=== PATIENT | male | born 1940 | race Caucasian/White ===

== ENCOUNTER 2016-11-12 15:18 | Inpatient (IN) | payer MEDICARE, OTHER ==
[~2016-11-12] VITALS: Ht 177.8 cm; Wt 70.3 kg
[2016-11-12 17:02] VITALS: BP 151/74
[2016-11-12] MEDS ORDERED: CATAPRES0.1 MG GT (17:31)
[2016-11-12] MEDS ORDERED: ARTIFICIAL TEA1 EAC2 OP (17:31)
[2016-11-12] MEDS ORDERED: ASPIR 8181 MG GT (17:31)
[2016-11-12] MEDS ORDERED: ACETAMINOP160 MG/51 ORAL (17:31)
[2016-11-12] MEDS ORDERED: DILANTIN-1125 MG/5 M PO (17:43)
[2016-11-12] MEDS ORDERED: NORCO 5-325 TA1 EACH ORAL (17:56)
[2016-11-12] MEDS ORDERED: ERYTHROMYCIN 2%30 GM TP (17:56)
[2016-11-12] MEDS ORDERED: KEFLEX500 MG ORAL (17:56)
[2016-11-12] MEDS ORDERED: NORCO 5-325 TA1 EACH GT (17:56)
[2016-11-12] MEDS ORDERED: ZOFRAN ODT4 MG (17:56)
[2016-11-12] MEDS ORDERED: DUONEB 0.5-3(2.53 ML HHN (17:56)
[2016-11-12] MEDS ORDERED: POLYETHYLENE GL17 GM ORAL (17:56)
[2016-11-12] MEDS ORDERED: MILK OF MA2400 MG/10 GT (17:56)
[2016-11-12] MEDS ORDERED: SOTALOL80 M1 GT (17:56)
[2016-11-12] MEDS ORDERED: SYNTHROID25 MCG GT (17:56)
[2016-11-12] MEDS ORDERED: FAMOTIDINE10 MG GT (17:56)
[2016-11-12] MEDS ORDERED: MULTI-DELYN237 ML GT (17:56)
[2016-11-12] MEDS ORDERED: DULCOLAX10 MG RC (17:56)
[2016-11-12] MEDS ORDERED: SIMVASTATIN10 MG GT (17:56)
[2016-11-12] MEDS ORDERED: ENEMA133 M1 RC (17:56)
[2016-11-12] MEDS ORDERED: TBO-Filgrastim 300 mcg/0.5ml SQ SCH (18:15)
[2016-11-12] MEDS ORDERED: Acetaminophen 650mg/20.3ml NG PRN (19:15)
[2016-11-12 20:00] VITALS: BP 148/81
[2016-11-12] MEDS ORDERED: Vancomycin 1.5 GM in D5W 325 ML IVPB ONE (20:00)
[2016-11-12] MEDS ORDERED: Miralax 17gm pkt ORAL PRN (21:00)
[2016-11-12] MEDS ORDERED: Milk of Magnesia 30ml Ud GT PRN (21:00)
[2016-11-12] MEDS ORDERED: Acetaminophen 650mg/20.3ml ORAL PRN (21:00)
[2016-11-12] MEDS ORDERED: Fleet's Enema 133ml RECTAL PRN (21:00)
[2016-11-12] MEDS ORDERED: Norco 5mg/325mg tab ORAL PRN (21:00)
[2016-11-12] MEDS ORDERED: Norco 5mg/325mg tab GT PRN (21:00)
[2016-11-12] MEDS ORDERED: Artificial Tears 1.4% Op Soln BOTH EYES PRN (21:45)
[2016-11-12] MEDS ORDERED: Cephalexin 250mg/5ml Susp 100mL Bottle NG SCH (22:30)
[2016-11-12] MEDS: DuoNeb 0.5-3(2.5)mg/3ml neb HHN PRN (22:34)
[2016-11-12] MEDS: Piperacillin/Tazobactam 3.375 GM in D5W 110 ML IVPB SCH (22:34)
[2016-11-13] VITALS (9 sets, daily range): BP systolic 95–150; BP diastolic 63–80
[2016-11-13] MEDS: Piperacillin/Tazobactam 3.375 GM in D5W 110 ML IVPB SCH ×3 (05:58→23:04)
[2016-11-13 07:33] LABS: BASOPHILS % (AUTO) 1.2 % (0.0-2.0); EOSINOPHILS % (AUTO) 3.9 % (0.0-3.0); LYMPHOCYTES % (AUTO) 4.9 % (20.0-45.0); MEAN CORPUSCULAR HEMOGLOBIN 29.3 PG (27.0-31.0); MEAN CORPUSCULAR HGB CONC 33.1 G/DL (32.0-36.0); MEAN CORPUSCULAR VOLUME 88 FL (80-99); MONOCYTES % (AUTO) 7.5 % (1.0-10.0); NEUTROPHILS % (AUTO) 82.5 % (45.0-75.0); PLATELET COUNT 264 K/UL (150-450); RED BLOOD COUNT 3.84 M/UL (4.70-6.10); RED CELL DISTRIBUTION WIDTH 12.9 % (11.6-14.8); WHITE BLOOD COUNT 11.3 K/UL (4.8-10.8)
[2016-11-13] MEDS: Multivitamin 5ml Liquid GT SCH (08:51)
[2016-11-13] MEDS: Aspirin Baby 81mg GT SCH (08:51)
[2016-11-13] MEDS: Phenytoin Susp 100mg/4ml GT SCH ×2 (08:52→17:27)
[2016-11-13] MEDS ORDERED: Levothyroxine 25mcg tab GT SCH (09:00)
[2016-11-13] MEDS: Sotalol 80mg tab ORAL SCH (09:20)
[2016-11-13] MEDS ORDERED: Sterile Water Irrig 1000ml IRRIG ONE (12:06)
[2016-11-13] MEDS ORDERED: Tubing IV Secondary IV ONE (12:06)
[2016-11-13] MEDS ORDERED: Vancomycin 1gm/D5W 275ml IVPB ONE ×2 (20:30)
--- NOTE | 2016-11-13 22:09 | Consultation ---
DATE OF CONSULTATION: 11/13/2016 REASON FOR CONSULTATION: Respiratory failure and pneumonia. REASON FOR ADMISSION: Fever and neutropenia. HISTORY OF PRESENT ILLNESS: The patient is a 76-year-old unfortunate male who was noted to have fevers. The patient has had history of facial cancer so the patient has significant scalp deformity. The patient noted to have significant neutropenia at the intermediate, was brought in for neutropenic fever, and comfortable was seen for discharge. 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 MEDICATIONS: Reviewed. ALLERGIES: Reviewed. SOCIAL HISTORY: Nonsmoker and nondrinker at the present. The patient is very debilitated. REVIEW OF SYSTEMS: Otherwise difficult to obtain. The patient otherwise appears stable, otherwise at the nursing facility. PHYSICAL EXAMINATION: GENERAL:: The patient is a chronically ill appearing male. VITAL SIGNS: Temperature 96.7, heart rate 100, blood pressure 158/67, O2 saturation 97% on 40% FiO2, respiratory rate 22. HEENT: Fairly negative. The patient overall has significant facial/scalp deformities with chronic erythematous changes. Extraocular movements are grossly intact. NECK: Supple. Carotids 2+. Tracheostomy in midline. LUNGS: Coarse breath sounds. Moderate air entry. CARDIAC: S1 and S2. Slightly tachycardiac without murmurs, rubs, or gallops. ABDOMEN: Soft, nontender, and nondistended. EXTREMITIES: No cyanosis or clubbing. No edema. NEUROLOGIC: Grossly nonfocal. LABORATORY DATA: Labs are reviewed and notable for white cell count of 11.3, hematocrit 32.9, platelets 254,000. IMPRESSION: 1. Respiratory failure, tracheostomy. 2. History of squamous cell cancer. 3. Significant facial and skull deformity. 4. History of seizure. 5. History of hyperlipidemia. 6. History of dysrhythmias. IMPRESSION: 1. Continue intermediate medications. 2. Empiric antibiotics. 3. The patient initially placed on isolation; however, the patient now is no longer neutropenic. We will follow clinically and recommend GI and ID evaluation. Followup x-ray and exam and stabilize. We will proceed with discharge planning once nontoxic and stable for discharge. Sarabjit Hunt M.D. DR: Artemio JOB#: [id number] CC:
--- NOTE | 2016-11-13 22:59 | Consultation ---
DATE OF CONSULTATION: 11/13/2016 INFECTIOUS DISEASES CONSULTATION: CONSULTING PHYSICIAN: Kae Mensah M.D. REFERRING PHYSICIAN: Sarabjit Hunt M.D. REASON FOR CONSULTATION: Fever. HISTORY OF PRESENTING ILLNESS: This is a 76-year-old gentleman with history of squamous cell carcinoma of the head and neck as well as respiratory failure, status post tracheostomy and fevers, and Infectious Diseases consultation has been obtained for antibiotics. PAST MEDICAL AND SURGICAL HISTORY: 1. History of squamous cell carcinoma of the head and neck. 2. Respiratory failure, status post tracheostomy. 3. Dysphagia, status post G-tube placement. 4. History of Banuelos's palsy. MEDICATIONS: As an inpatient, the patient is on aspirin, Synthroid, multivitamin, Dilantin, sotalol, ranitidine, Zosyn, Lipitor, Artificial Tears, Tylenol, Dulcolax, clonidine, [place], albuterol, milk of magnesia, sodium phosphate, Zofran, MiraLax, Tylenol, IV vancomycin. ALLERGIES: No known drug allergies. SOCIAL HISTORY: Unknown. FAMILY HISTORY: Unknown. REVIEW OF SYSTEMS: Unable to obtain currently. PHYSICAL EXAMINATION: VITAL SIGNS: Temperature is 96.4 degrees, T-max of 101.7 degrees, pulse of 100, respiratory rate 22, blood pressure 150/67, and O2 saturation of 97%. HEENT: Pupils are equally reactive to light and accommodation. Mouth appears clean without thrush. Facial masses are noted. NECK: Supple. Tracheostomy site appears clean. CARDIOVASCULAR: Regular rate and rhythm. No murmurs. LUNGS: Clear to auscultation bilaterally. No crackles. No wheezes. ABDOMEN: Soft and nontender. No organomegaly. G-tube site appears clean. G-tube site has surrounding erythema. EXTREMITIES: No cyanosis, no clubbing, and no edema. LABORATORY DATA: White count is 11.3, hemoglobin 11.2, hematocrit 33.9, MCV 88, and platelet count 264,000 with neutrophils of 82%. Wound cultures from the abdomen is negative so far. ASSESSMENT: 1. This is a 76-year-old gentleman with history of squamous cell carcinoma of the head and neck, who comes in with fevers. We would like to rule out urinary tract infection as a possibility. 2. We would also like to rule out sepsis as a possibility. 3. He has G-tube site cellulitis. 4. Respiratory failure, status post tracheostomy. PLAN: 1. Continue vancomycin and Zosyn. 2. We will follow up on wound cultures, blood cultures, and urine cultures and adjust antibiotics accordingly. I would like to thank, Dr. Hunt for this consultation. Kae Mensah M.D. DR: Craig JOB#: [id number] CC: Sarabjit Hunt M.D.; Fax#: [phone]
[2016-11-14] VITALS: BP 133/67
[2016-11-14 04:00] VITALS: BP 125/84
[2016-11-14] MEDS: Piperacillin/Tazobactam 3.375 GM in D5W 110 ML IVPB SCH ×3 (04:55→21:33)
--- NOTE | 2016-11-14 05:18 | History and Physical Report ---
DATE OF ADMISSION: 11/12/2016 CHIEF COMPLAINT: Shortness of breath and pneumonia. HISTORY OF PRESENT ILLNESS: The patient is a 76-year-old male. He has a history of head and neck cancer, chronic obstructive pulmonary disease, and dysphagia, who was admitted from an outside hospital. He complaints of cough, congestion, and shortness of breath. The patient is a poor historian. He is unable to provide any history. He is currently noted to be congested, short of breath, and more confused. He had an elevated white count of 11,000. He was noted to be congested. PAST MEDICAL HISTORY: As above. PAST SURGERY HISTORY: The patient has a prior history of tracheostomy via G-tube. CURRENT MEDICATIONS: Reconciled and reviewed. ALLERGIES: None. FAMILY HISTORY: Unknown. SOCIAL HISTORY: There is no known history of tobacco, ethanol, or drugs. REVIEW OF SYSTEMS: Unobtainable as the patient is confused. PHYSICAL EXAMINATION: VITAL SIGNS: Temperature 98 degrees, blood pressure 144/63, pulse 96, and respirations 18. GENERAL: The patient is in no apparent distress. HEART: Regular rate and rhythm. LUNGS: Clear. Trach site is clean. Bilateral rhonchi and rales. ABDOMEN: Soft, nontender, and nondistended. EXTREMITIES: Without clubbing, cyanosis, or edema. LABORATORY AND DIAGNOSTIC DATA: White count 11, hemoglobin 11, and hematocrit 33. X-ray results are currently pending. ASSESSMENT: 1. This is an elderly male with complaints of shortness of breath, cough, congestion secondary to possible pneumonia. 2. Respiratory failure. 3. History of chronic obstructive pulmonary disease on tracheostomy. 4. History of head and neck cancer. PLAN: Broad-spectrum IV antibiotics. Aggressive respiratory care and pulmonary. Continue current blood pressure regimen, thyroid replacement therapy, antiplatelet therapy, DVT and stress ulcer prophylaxis. Mathew Gr M.D. DR: ANTONIETA JOB#: [id number] CC:
[2016-11-14 07:21] LABS: ALANINE AMINOTRANSFERASE 38 U/L (3-41); ALBUMIN/GLOBULIN RATIO 0.5 (1.0-2.7); ANION GAP 10 (5-15); ASPARTATE AMINO TRANSFERASE 34 U/L (5-40); CALCIUM 9.2 mg/dL (8.6-10.2); CARBON DIOXIDE 31 mEQ/L (20-30); CHLORIDE 90 mEQ/L (98-107); CREATININE 0.6 mg/dL (0.7-1.2); HEMOLYSIS 0; POTASSIUM 4.2 mEQ/L (3.4-4.9); SODIUM 131 mEQ/L (135-145); TOTAL PROTEIN 7.4 g/dL (6.6-8.7)
[2016-11-14 08:00] VITALS: BP 137/84
[2016-11-14] MEDS: Multivitamin 5ml Liquid GT SCH (09:15)
[2016-11-14] MEDS: Aspirin Baby 81mg GT SCH (09:15)
[2016-11-14] MEDS: Sotalol 80mg tab ORAL SCH (09:15)
[2016-11-14] MEDS: Phenytoin Susp 100mg/4ml GT SCH ×2 (09:15→17:57)
--- NOTE | 2016-11-14 11:17 | Diagnostic Imaging Report ---
Indication: COPD, dyspnea Technique: One view of the chest Comparison: none Findings: Patient's chin obscures the right lung apex. There is a band of atelectasis at the right lung base. Patchy consolidation in the left hilar region and areas of left basilar atelectasis are also noted. There is slight blunting of left costophrenic angle, small amount of pleural fluid not excludable. Left chest biventricular AICD is noted. Left axillary surgical clips are noted. The heart size is normal. Impression: Possible small left-sided pleural effusion Left perihilar patchy infiltrate Bibasilar atelectasis Other findings as noted
--- NOTE | 2016-11-14 11:43 | Infectious Diseases Prog Note ---
Assessment/Plan Assessment/Plan antibiotics : vancomycin iv, zosyn A 1. pneumonia 2. GT site cellulitis with staph aureus 3. 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 fever improving P 1. continue vancomycin iv, zosyn 2. will follow up cultures Subjective ROS Limited/Unobtainable: Yes Allergies: Coded Allergies: No Known Allergies (Unverified , 11/12/16) Objective Vital Signs Last 24 Hour Vital Signs Date Time Temp Pulse Resp B/P Pulse Ox O2 Delivery O2 Flow Rate FiO2 11/14/16 09:15 84 137/84 11/14/16 08:00 97.2 84 18 137/84 91 Trach Collar 4.0 11/14/16 07:27 98 Trach Collar 40 11/14/16 07:27 Trach Collar 40 11/14/16 04:00 97.9 83 18 125/84 97 Trach Collar 4.0 11/14/16 00:30 98 Trach Collar 40 11/14/16 00:30 Trach Collar 40 11/14/16 00:00 98.1 79 18 133/67 97 Trach Collar 4.0 11/13/16 20:00 97.7 78 18 130/67 98 Trach Collar 4.0 11/13/16 19:23 96 Trach Collar 40 11/13/16 19:23 Trach Collar 40 11/13/16 16:36 98.1 76 18 144/63 95 Trach Collar 4.0 11/13/16 16:35 98.1 76 18 144/63 95 Room Air 11/13/16 12:00 97.2 77 18 127/77 93 Trach Collar 4.0 Height (Feet): 5 Height (Inches): 10.00 Weight (Pounds): 155 HEENT: status post trach, other - facial masses Respiratory/Chest: lungs clear Cardiovascular: normal rate, regular rhythm, no gallop/murmur Abdomen: soft, non tender, other - GT Extremities: no edema Microbiology Date/Time Source Procedure Growth Status 11/12/16 19:10 Blood Blood Culture - Preliminary NO GROWTH AFTER 24 HOURS Resulted 11/12/16 19:00 Blood Blood Culture - Preliminary NO GROWTH AFTER 24 HOURS Resulted 11/13/16 13:40 Sputum Expectorated Gram Stain - Final Resulted 11/13/16 13:40 Sputum Expectorated Sputum Culture Pending Resulted 11/12/16 20:00 Nasal Nares MRSA Culture - Final Staphylococcus Aureus - Mrsa Complete 11/13/16 09:30 Urine,Clean Catch Urine Culture - Preliminary NO GROWTH Resulted 11/12/16 20:00 Abdomen Gram Stain - Final Resulted 11/12/16 20:00 Wound Culture - Preliminary Staphylococcus Aureus Resulted 11/12/16 20:00 Rectum VRE Culture - Final NO VANCOMYCIN RESISTANT ENTEROCOCCUS ... Complete Laboratory Tests Test 11/14/16 05:35 Sodium Level 131 mEQ/L (135-145) L Potassium Level 4.2 mEQ/L (3.4-4.9) Chloride Level 90 mEQ/L (98-107) L Carbon Dioxide Level 31 mEQ/L (20-30) H Anion Gap 10 (5-15) Blood Urea Nitrogen 12 mg/dL (7-23) Creatinine 0.6 mg/dL (0.7-1.2) L Estimat Glomerular Filtration Rate mL/min (>60) Glucose Level 176 mg/dL (74-106) H Calcium Level 9.2 mg/dL (8.6-10.2) Total Bilirubin 0.4 mg/dL (0.0-1.2) Aspartate Amino Transf (AST/SGOT) 34 U/L (5-40) Alanine Aminotransferase (ALT/SGPT) 38 U/L (3-41) Alkaline Phosphatase 210 U/L (40-129) H Total Protein 7.4 g/dL (6.6-8.7) Albumin 2.7 g/dL (3.5-5.2) L Globulin 4.7 g/dL Albumin/Globulin Ratio 0.5 (1.0-2.7) L Thyroid Stimulating Hormone (TSH) 2.200 uIU/mL (0.300-4.500) Phenytoin (Dilantin) Level 9.6 ug/mL (10-20) L RANDI TREVIZO Nov 14, 2016 11:43
[2016-11-14 11:58] VITALS: BP 124/69
--- NOTE | 2016-11-14 12:00 | Pulmonology Progress Note ---
Assessment/Plan Assessment/Plan IMPRESSION: 1. Respiratory failure, tracheostomy. 2. History of squamous cell cancer. 3. Significant facial and skull deformity. 4. History of seizure. 5. History of hyperlipidemia. 6. History of dysrhythmias. PLAN dc planning respiratory care oxygen monitor for change monitor for aspiration dc to SNF possibly next 1-2 days pending evaluation impression, plan, and exam edited and reviewed in detail care discussed with RN Subjective ROS Limited/Unobtainable: Yes Allergies: Coded Allergies: No Known Allergies (Unverified , 11/12/16) Subjective no distress care noted Objective Last 24 Hour Vital Signs Date Time Temp Pulse Resp B/P Pulse Ox O2 Delivery O2 Flow Rate FiO2 11/14/16 09:15 84 137/84 11/14/16 08:00 97.2 84 18 137/84 91 Trach Collar 4.0 11/14/16 07:27 98 Trach Collar 40 11/14/16 07:27 Trach Collar 40 11/14/16 04:00 97.9 83 18 125/84 97 Trach Collar 4.0 11/14/16 00:30 98 Trach Collar 40 11/14/16 00:30 Trach Collar 40 11/14/16 00:00 98.1 79 18 133/67 97 Trach Collar 4.0 11/13/16 20:00 97.7 78 18 130/67 98 Trach Collar 4.0 11/13/16 19:23 96 Trach Collar 40 11/13/16 19:23 Trach Collar 40 11/13/16 16:36 98.1 76 18 144/63 95 Trach Collar 4.0 11/13/16 16:35 98.1 76 18 144/63 95 Room Air 11/13/16 12:00 97.2 77 18 127/77 93 Trach Collar 4.0 Intake and Output 11/13/16 11/14/16 19:00 07:00 Intake Total 1882.5 ml 1629.0 ml Output Total 1100 ml 1000 ml Balance 782.5 ml 629.0 ml Intake Free Water 300 ml 300 ml IV Total 582.5 ml 849.0 ml Tube Feeding 1000 ml 250 ml Other 230 ml Output Urine Total 1100 ml 1000 ml # Voids 2 Objective GENERAL:: The patient is a chronically ill appearing male. HEENT: Fairly negative. The patient overall has significant facial/scalp deformities with chronic erythematous changes. Extraocular movements are grossly intact. NECK: Supple. Carotids 2+. Tracheostomy in midline. LUNGS: Coarse breath sounds. Moderate air entry. without change CARDIAC: S1 and S2. RRR without murmurs, rubs, or gallops. ABDOMEN: Soft, nontender, and nondistended. EXTREMITIES: No cyanosis or clubbing. No edema. NEUROLOGIC: Grossly nonfocal. Microbiology Date/Time Source Procedure Growth Status 11/12/16 19:10 Blood Blood Culture - Preliminary NO GROWTH AFTER 24 HOURS Resulted 11/12/16 19:00 Blood Blood Culture - Preliminary NO GROWTH AFTER 24 HOURS Resulted 11/13/16 13:40 Sputum Expectorated Gram Stain - Final Resulted 11/13/16 13:40 Sputum Expectorated Sputum Culture Pending Resulted 11/12/16 20:00 Nasal Nares MRSA Culture - Final Staphylococcus Aureus - Mrsa Complete 11/13/16 09:30 Urine,Clean Catch Urine Culture - Preliminary NO GROWTH Resulted 11/12/16 20:00 Abdomen Gram Stain - Final Resulted 11/12/16 20:00 Wound Culture - Preliminary Staphylococcus Aureus Resulted 11/12/16 20:00 Rectum VRE Culture - Final NO VANCOMYCIN RESISTANT ENTEROCOCCUS ... Complete Laboratory Tests 11/14/16 05:35: Sodium Level 131L, Potassium Level 4.2, Chloride Level 90L, Carbon Dioxide Level 31H, Anion Gap 10, Blood Urea Nitrogen 12, Creatinine 0.6L, Estimat Glomerular Filtration Rate , Glucose Level 176H, Calcium Level 9.2, Total Bilirubin 0.4, Aspartate Amino Transf (AST/SGOT) 34, Alanine Aminotransferase ( ALT/SGPT) 38, Alkaline Phosphatase 210H, Total Protein 7.4, Albumin 2.7L, Globulin 4.7, Albumin/Globulin Ratio 0.5L, Thyroid Stimulating Hormone (TSH) 2.200, Phenytoin (Dilantin) Level 9.6L Current Medications Medications (Trade) Dose Ordered Sig/[place] Route PRN Reason Start Time Stop Time Status Last Admin Dose Admin Acetaminophen (Tylenol) 650 mg Q4HR PRN NG Mild Pain/Temp > 100.5 11/12/16 19:15 12/12/16 19:14 11/12/16 19:37 Acetaminophen (Tylenol) 650 mg Q4HR PRN ORAL Fever/Headache/Mild Pain 11/12/16 21:00 12/12/16 20:59 Acetaminophen/ Hydrocodone Bitart ([place] 5/325) 1 tab Q6H PRN GT Moderate Pain (Pain Scale 4-6) 11/12/16 21:00 11/19/16 20:59 Acetaminophen/ Hydrocodone Bitart ([place] 5/325) 2 tab Q6H PRN ORAL Severe Pain (Pain Scale 7-10) 11/12/16 21:00 11/19/16 20:59 Albuterol/ Ipratropium (DuoNeb 0.5-3(2.5)mg/3ml) 3 ml EVERY 4 HOURS PRN HHN Shortness of Breath 11/12/16 21:00 11/17/16 20:59 11/12/16 22:34 Artificial Tears ([place]-Tears) 1 drop Q4H PRN BOTH EYES DRY EYES 11/12/16 21:45 12/12/16 21:44 Aspirin (ASA) 81 mg DAILY GT 11/13/16 09:00 12/13/16 08:59 11/14/16 09:15 Atorvastatin Calcium (Lipitor) 5 mg BEDTIME ORAL 11/12/16 22:00 12/12/16 21:59 11/13/16 20:59 Bisacodyl (Dulcolax) 10 mg DAILY PRN RECTAL If MOM is ineffective 11/12/16 21:00 12/12/16 20:59 Clonidine HCl (Catapres) 0.1 mg EVERY 6 HOURS PRN GT SBP >160 11/12/16 21:00 12/12/16 20:59 Levothyroxine Sodium (Synthroid) 50 mcg DAILY GT 11/14/16 09:00 12/14/16 08:59 11/14/16 09:15 Magnesium Hydroxide (Mom) 30 ml DAILY PRN GT IF NO BM FOR 3 DAYS 11/12/16 21:00 12/12/16 20:59 Multivitamins (Multivitamin Hexavitamin) 5 ml DAILY GT 11/13/16 09:00 12/13/16 08:59 11/14/16 09:15 Non-Formulary Medication (Non-Formulary Med) 1 ea DAILY ORAL 11/13/16 09:00 12/13/16 08:59 UNV Ondansetron HCl (Zofran ODT) 4 mg Q6H PRN GT Nausea & Vomiting 11/12/16 21:00 4/10/17 20:59 Phenytoin (Dilantin) 400 mg BID GT 11/13/16 09:00 12/13/16 08:59 11/14/16 09:15 Piperacillin Sod/ Tazobactam Sod/ Dextrose (Zosyn/D5W) 110 ml @ 27.5 mls/hr Q8HR IVPB 11/12/16 22:00 11/19/16 21:59 11/14/16 04:55 Polyethylene Glycol (Miralax) 17 gm DAILY PRN ORAL if MOM ineffective 11/12/16 21:00 12/12/16 20:59 Ranitidine HCl (Zantac) 150 mg DAILY ORAL 11/13/16 09:00 12/13/16 08:59 11/14/16 09:15 Sodium Chloride (Sodium Chloride 1000ml bag) 1,000 ml @ 100 mls/hr Q10H IV 11/12/16 19:00 12/12/16 18:59 11/13/16 13:41 Sodium Phosphate (Fleet's Sodium Phosl Enema) 133 ml DAILY PRN RECTAL If MOM & Dulcolax ineffective 11/12/16 21:00 12/12/16 20:59 Sotalol HCl (Betapace) 80 mg DAILY ORAL 11/13/16 09:00 12/13/16 08:59 11/14/16 09:15 Vancomycin HCl 1 ea 1 ea DAILY PRN MISC Per rx protocol 11/12/16 18:15 DOLORES LARA Nov 14, 2016 12:00
--- NOTE | 2016-11-14 13:35 | General Progress Note ---
Assessment/Plan Problem List: (1) Hospital acquired PNA ICD Codes: J18.9 - Pneumonia, unspecified organism SNOMED: 083548736 (2) Head and neck cancer ICD Codes: C76.0 - Malignant neoplasm of head, face and neck SNOMED: 451484561 (3) Respiratory insufficiency ICD Codes: R06.89 - Other abnormalities of breathing SNOMED: 012345380 (4) Encephalopathy acute ICD Codes: G93.40 - Encephalopathy, unspecified SNOMED: 0717804 (5) r/o sepsis Status: stable, progressing Assessment/Plan iv abx resp care gt feeds follow up cultures Subjective ROS Limited/Unobtainable: No Constitutional: Reports: malaise, weakness HEENT: Reports: no symptoms Cardiovascular: Reports: no symptoms Respiratory: Reports: cough, sputum Gastrointestinal/Abdominal: Reports: no symptoms Genitourinary: Reports: no symptoms Neurologic/Psychiatric: Reports: no symptoms Endocrine: Reports: no symptoms Hematologic/Lymphatic: Reports: anemia Allergies: Coded Allergies: No Known Allergies (Unverified , 11/12/16) All Systems: reviewed and negative except above Subjective no events. up in bed. no distress. no sob. minimally verbal. writes on paper Objective Last 24 Hour Vital Signs Date Time Temp Pulse Resp B/P Pulse Ox O2 Delivery O2 Flow Rate FiO2 11/14/16 13:18 98 Trach Collar 40 11/14/16 13:18 Trach Collar 40 11/14/16 11:58 97.3 72 18 124/69 94 Trach Collar 10.0 11/14/16 09:15 84 137/84 11/14/16 08:00 97.2 84 18 137/84 91 Trach Collar 4.0 11/14/16 07:27 98 Trach Collar 40 11/14/16 07:27 Trach Collar 40 11/14/16 04:00 97.9 83 18 125/84 97 Trach Collar 4.0 11/14/16 00:30 98 Trach Collar 40 11/14/16 00:30 Trach Collar 40 11/14/16 00:00 98.1 79 18 133/67 97 Trach Collar 4.0 11/13/16 20:00 97.7 78 18 130/67 98 Trach Collar 4.0 11/13/16 19:23 96 Trach Collar 40 11/13/16 19:23 Trach Collar 40 11/13/16 16:36 98.1 76 18 144/63 95 Trach Collar 4.0 11/13/16 16:35 98.1 76 18 144/63 95 Room Air Intake and Output 11/13/16 11/14/16 19:00 07:00 Intake Total 1882.5 ml 1629.0 ml Output Total 1100 ml 1000 ml Balance 782.5 ml 629.0 ml Intake Free Water 300 ml 300 ml IV Total 582.5 ml 849.0 ml Tube Feeding 1000 ml 250 ml Other 230 ml Output Urine Total 1100 ml 1000 ml # Voids 2 Laboratory Tests 11/14/16 05:35: Sodium Level 131L, Potassium Level 4.2, Chloride Level 90L, Carbon Dioxide Level 31H, Anion Gap 10, Blood Urea Nitrogen 12, Creatinine 0.6L, Estimat Glomerular Filtration Rate , Glucose Level 176H, Calcium Level 9.2, Total Bilirubin 0.4, Aspartate Amino Transf (AST/SGOT) 34, Alanine Aminotransferase ( ALT/SGPT) 38, Alkaline Phosphatase 210H, Total Protein 7.4, Albumin 2.7L, Globulin 4.7, Albumin/Globulin Ratio 0.5L, Thyroid Stimulating Hormone (TSH) 2.200, Phenytoin (Dilantin) Level 9.6L Height (Feet): 5 Height (Inches): 10.00 Weight (Pounds): 155 General Appearance: WD/WN, confused Neck: other - large right neck mass Cardiovascular: regular rhythm Respiratory/Chest: rhonchi - bilaterally Abdomen: normal bowel sounds, non tender, soft, no organomegaly Edema: no edema noted Arm (L), no edema noted Arm (R), no edema noted Leg (L), no edema noted Leg (R), no edema noted Pedal (L), no edema noted Pedal (R), no edema noted Generalized Neurologic: alert, aphasia REGGIE DE JESUS Nov 14, 2016 13:35
[2016-11-14] MEDS ORDERED: Sterile Water Irrig 1000ml IRRIG ONE (15:51)
[2016-11-14] MEDS ORDERED: NS Irrig 1000ml ONE (15:51)
[2016-11-14 16:00] VITALS: BP 143/73
[2016-11-14] MEDS ORDERED: Cephalexin 250mg/5ml Susp 100mL Bottle ONE (16:58)
[2016-11-14] MEDS: Vancomycin 1250mg/D5W 275ml IVPB SCH ×2 (19:47)
[2016-11-14 20:00] VITALS: BP 143/73
[2016-11-15] VITALS (9 sets, daily range): BP systolic 117–157; BP diastolic 69–86
[2016-11-15] MEDS: Piperacillin/Tazobactam 3.375 GM in D5W 110 ML IVPB SCH ×2 (05:12→13:08)
--- NOTE | 2016-11-15 07:55 | Pulmonology Progress Note ---
Assessment/Plan Assessment/Plan IMPRESSION: 1. Respiratory failure, tracheostomy. 2. History of squamous cell cancer. 3. Significant facial and skull deformity. 4. History of seizure. 5. History of hyperlipidemia. 6. History of dysrhythmias. 7. MRSA PLAN dc planning today or in am repeat cbc respiratory care oxygen monitor for change monitor for aspiration dc to SNF pending ID clearance and repeat labs finalize antibiotics impression, plan, and exam edited and reviewed in detail care discussed with RN Subjective ROS Limited/Unobtainable: Yes Allergies: Coded Allergies: No Known Allergies (Unverified , 11/12/16) Subjective no distress care noted cultures reviewed Objective Last 24 Hour Vital Signs Date Time Temp Pulse Resp B/P Pulse Ox O2 Delivery O2 Flow Rate FiO2 11/15/16 04:00 98.6 96 20 142/76 92 11/15/16 02:22 Trach Collar 40 11/15/16 02:22 96 Trach Collar 40 11/15/16 00:00 98.0 95 22 138/70 93 11/14/16 21:02 94 Trach Collar 40 11/14/16 21:02 Trach Collar 40 11/14/16 20:00 97.6 72 16 143/73 94 Room Air 11/14/16 16:00 97.5 77 17 143/73 94 Room Air 11/14/16 13:18 98 Trach Collar 40 11/14/16 13:18 Trach Collar 40 11/14/16 11:58 97.3 72 18 124/69 94 Trach Collar 10.0 11/14/16 09:15 84 137/84 11/14/16 08:00 97.2 84 18 137/84 91 Trach Collar 4.0 Intake and Output 11/14/16 11/15/16 19:00 07:00 Intake Total 755.0 ml 802.50 ml Output Total 600 ml 1050 ml Balance 155.0 ml -247.50 ml Intake Free Water 150 ml IV Total 255.0 ml 402.50 ml Tube Feeding 500 ml 250 ml Output Urine Total 600 ml 1050 ml Objective GENERAL:: The patient is a chronically ill appearing male. HEENT: Fairly negative. The patient overall has significant facial/scalp deformities with chronic erythematous changes. Extraocular movements are grossly intact. NECK: Supple. Carotids 2+. Tracheostomy in midline. LUNGS: Coarse breath sounds. Moderate air entry. without change from prior CARDIAC: S1 and S2. RRR without murmurs, rubs, or gallops. ABDOMEN: Soft, nontender, and nondistended. EXTREMITIES: No cyanosis or clubbing. No edema. NEUROLOGIC: Grossly nonfocal. Microbiology Date/Time Source Procedure Growth Status 11/12/16 19:10 Blood Blood Culture - Preliminary NO GROWTH AFTER 48 HOURS Resulted 11/12/16 19:00 Blood Blood Culture - Preliminary NO GROWTH AFTER 48 HOURS Resulted 11/13/16 13:40 Sputum Expectorated Gram Stain - Final Resulted 11/13/16 13:40 Sputum Expectorated Sputum Culture Pending Resulted 11/12/16 20:00 Nasal Nares MRSA Culture - Final Staphylococcus Aureus - Mrsa Complete 11/13/16 09:30 Urine,Clean Catch Urine Culture - Preliminary NO GROWTH AFTER 24 HOURS Resulted 11/12/16 20:00 Abdomen Gram Stain - Final Resulted 11/12/16 20:00 Wound Culture - Preliminary Staphylococcus Aureus Resulted 11/12/16 20:00 Rectum VRE Culture - Final NO VANCOMYCIN RESISTANT ENTEROCOCCUS ... Complete Current Medications Medications (Trade) Dose Ordered Sig/H[place] Route PRN Reason Start Time Stop Time Status Last Admin Dose Admin Acetaminophen (Tylenol) 650 mg Q4HR PRN NG Mild Pain/Temp > 100.5 11/12/16 19:15 12/12/16 19:14 11/12/16 19:37 Acetaminophen (Tylenol) 650 mg Q4HR PRN ORAL Fever/Headache/Mild Pain 11/12/16 21:00 12/12/16 20:59 Acetaminophen/ Hydrocodone Bitart ([place] 5/325) 1 tab Q6H PRN GT Moderate Pain (Pain Scale 4-6) 11/12/16 21:00 11/19/16 20:59 Acetaminophen/ Hydrocodone Bitart ([place] 5/325) 2 tab Q6H PRN ORAL Severe Pain (Pain Scale 7-10) 11/12/16 21:00 11/19/16 20:59 Albuterol/ Ipratropium (DuoNeb 0.5-3(2.5)mg/3ml) 3 ml EVERY 4 HOURS PRN HHN Shortness of Breath 11/12/16 21:00 11/17/16 20:59 11/12/16 22:34 Artificial Tears (Akwa-Tears) 1 drop Q4H PRN BOTH EYES DRY EYES 11/12/16 21:45 12/12/16 21:44 Aspirin (ASA) 81 mg DAILY GT 11/13/16 09:00 12/13/16 08:59 11/14/16 09:15 Atorvastatin Calcium (Lipitor) 5 mg BEDTIME ORAL 11/12/16 22:00 12/12/16 21:59 11/14/16 21:32 Bisacodyl (Dulcolax) 10 mg DAILY PRN RECTAL If MOM is ineffective 11/12/16 21:00 12/12/16 20:59 Clonidine HCl (Catapres) 0.1 mg EVERY 6 HOURS PRN GT SBP >160 11/12/16 21:00 12/12/16 20:59 Levothyroxine Sodium 50 mcg 50 mcg DAILY GT 11/14/16 09:00 12/14/16 08:59 11/14/16 09:15 Magnesium Hydroxide (Mom) 30 ml DAILY PRN GT IF NO BM FOR 3 DAYS 11/12/16 21:00 12/12/16 20:59 Multivitamins (Multivitamin Hexavitamin) 5 ml DAILY GT 11/13/16 09:00 12/13/16 08:59 11/14/16 09:15 Non-Formulary Medication (Non-Formulary Med) 1 ea DAILY ORAL 11/13/16 09:00 12/13/16 08:59 UNV Ondansetron HCl (Zofran ODT) 4 mg Q6H PRN GT Nausea & Vomiting 11/12/16 21:00 12/12/16 20:59 Phenytoin (Dilantin) 400 mg BID GT 11/13/16 09:00 12/13/16 08:59 11/14/16 17:57 Piperacillin Sod/ Tazobactam Sod/ Dextrose (Zosyn/D5W) 110 ml @ 27.5 mls/hr Q8HR IVPB 11/12/16 22:00 11/19/16 21:59 11/15/16 05:12 Polyethylene Glycol (Miralax) 17 gm DAILY PRN ORAL if MOM ineffective 11/12/16 21:00 12/12/16 20:59 Ranitidine HCl (Zantac) 150 mg DAILY ORAL 11/13/16 09:00 12/13/16 08:59 11/14/16 09:15 Sodium Chloride (Sodium Chloride 1000ml bag) 1,000 ml @ 100 mls/hr Q10H IV 11/12/16 19:00 12/12/16 18:59 11/15/16 05:20 Sodium Phosphate (Fleet's Sodium Phosl Enema) 133 ml DAILY PRN RECTAL If MOM & Dulcolax ineffective 11/12/16 21:00 12/12/16 20:59 Sotalol HCl (Betapace) 80 mg DAILY ORAL 11/13/16 09:00 12/13/16 08:59 11/14/16 09:15 Vancomycin HCl 1 ea 1 ea DAILY PRN MISC Per rx protocol 11/12/16 18:15 Vancomycin HCl/ Dextrose (Vancomycin/D5W) 275 ml @ 183.333 mls/hr Q24H IVPB 11/14/16 20:00 11/19/16 19:59 11/14/16 19:47 DOLORES LARA Nov 15, 2016 07:55
--- NOTE | 2016-11-15 08:29 | General Progress Note ---
Assessment/Plan Problem List: (1) Hospital acquired PNA ICD Codes: J18.9 - Pneumonia, unspecified organism SNOMED: 189125537 (2) Head and neck cancer ICD Codes: C76.0 - Malignant neoplasm of head, face and neck SNOMED: 376239649 (3) Respiratory insufficiency ICD Codes: R06.89 - Other abnormalities of breathing SNOMED: 091749579 (4) Encephalopathy acute ICD Codes: G93.40 - Encephalopathy, unspecified SNOMED: 1775911 (5) r/o sepsis Status: stable, progressing Assessment/Plan iv abx resp care gt feeds follow up cultures follow up labs Subjective ROS Limited/Unobtainable: Yes Constitutional: Reports: malaise, weakness HEENT: Reports: no symptoms Cardiovascular: Reports: no symptoms Respiratory: Reports: cough, shortness of breath Gastrointestinal/Abdominal: Reports: difficulty swallowing Genitourinary: Reports: no symptoms Neurologic/Psychiatric: Reports: no symptoms Endocrine: Reports: no symptoms Hematologic/Lymphatic: Reports: no symptoms Allergies: Coded Allergies: No Known Allergies (Unverified , 11/12/16) All Systems: reviewed and negative except above Subjective no events. up in bed. no distress. awake. no new complaints. Objective Last 24 Hour Vital Signs Date Time Temp Pulse Resp B/P Pulse Ox O2 Delivery O2 Flow Rate FiO2 11/15/16 08:00 98.1 105 18 117/69 97 Trach Collar 11/15/16 04:00 98.6 96 20 142/76 92 11/15/16 02:22 Trach Collar 40 11/15/16 02:22 96 Trach Collar 40 11/15/16 00:00 98.0 95 22 138/70 93 11/14/16 21:02 94 Trach Collar 40 11/14/16 21:02 Trach Collar 40 11/14/16 20:00 97.6 72 16 143/73 94 Room Air 11/14/16 16:00 97.5 77 17 143/73 94 Room Air 11/14/16 13:18 98 Trach Collar 40 11/14/16 13:18 Trach Collar 40 11/14/16 11:58 97.3 72 18 124/69 94 Trach Collar 10.0 11/14/16 09:15 84 137/84 Intake and Output 11/14/16 11/15/16 19:00 07:00 Intake Total 755.0 ml 802.50 ml Output Total 600 ml 1050 ml Balance 155.0 ml -247.50 ml Intake Free Water 150 ml IV Total 255.0 ml 402.50 ml Tube Feeding 500 ml 250 ml Output Urine Total 600 ml 1050 ml Height (Feet): 5 Height (Inches): 10.00 Weight (Pounds): 155 General Appearance: WD/WN EENT: other - neck mass Cardiovascular: normal rate Respiratory/Chest: lungs clear Abdomen: normal bowel sounds, non tender, soft, no organomegaly Edema: no edema noted Arm (L), no edema noted Arm (R), no edema noted Leg (L), no edema noted Leg (R), no edema noted Pedal (L), no edema noted Pedal (R), no edema noted Generalized Neurologic: alert, responsive REGGIE DE JESUS Nov 15, 2016 08:29
[2016-11-15] MEDS: Multivitamin 5ml Liquid GT SCH (09:02)
[2016-11-15] MEDS: Aspirin Baby 81mg GT SCH (09:03)
[2016-11-15] MEDS: Sotalol 80mg tab ORAL SCH (09:03)
[2016-11-15] MEDS: Phenytoin Susp 100mg/4ml GT SCH ×2 (09:03→18:30)
[2016-11-15 10:22] LABS: BASOPHILS % (AUTO) 1.1 % (0.0-2.0); EOSINOPHILS % (AUTO) 4.2 % (0.0-3.0); LYMPHOCYTES % (AUTO) 4.2 % (20.0-45.0); MEAN CORPUSCULAR HEMOGLOBIN 29.3 PG (27.0-31.0); MEAN CORPUSCULAR VOLUME 89 FL (80-99); MEAN PLATELET VOLUME 8.5 FL (6.5-10.1); MONOCYTES % (AUTO) 7.6 % (1.0-10.0); PLATELET COUNT 287 K/UL (150-450); RED BLOOD COUNT 3.57 M/UL (4.70-6.10); RED CELL DISTRIBUTION WIDTH 12.9 % (11.6-14.8); WHITE BLOOD COUNT 9.4 K/UL (4.8-10.8)
[2016-11-15] MEDS: DuoNeb 0.5-3(2.5)mg/3ml neb HHN PRN (13:57)
[2016-11-15] MEDS: Vancomycin 1250mg/D5W 275ml IVPB SCH ×2 (20:36)
[2016-11-16] VITALS: BP 130/58
[2016-11-16] MEDS: Acetaminophen 650mg/20.3ml NG PRN (00:55)
[2016-11-16] MEDS ORDERED: DuoNeb 0.5-3(2.5)mg/3ml neb HHN PRN (01:00)
[2016-11-16] MEDS ORDERED: Acetaminophen 650mg/20.3ml ORAL PRN (01:00)
[2016-11-16] MEDS ORDERED: Artificial Tears 1.4% Op Soln BOTH EYES PRN (01:45)
[2016-11-16 04:00] VITALS: BP 106/56
[2016-11-16] MEDS: Piperacillin/Tazobactam 3.375 GM in D5W 110 ML IVPB SCH ×3 (05:25→22:36)
[2016-11-16] MEDS: Norco 5mg/325mg tab ORAL PRN ×2 (05:26→14:14)
--- NOTE | 2016-11-16 06:32 | Pulmonology Progress Note ---
Assessment/Plan Assessment/Plan IMPRESSION: 1. Respiratory failure, tracheostomy. 2. History of squamous cell cancer. 3. Significant facial and skull deformity. 4. History of seizure. 5. History of hyperlipidemia. 6. History of dysrhythmias. 7. MRSA 8. s/p fall with scalp injury PLAN hold dc head CT; await results monitor neuro exam repeat cbc normal wbc respiratory care oxygen monitor for change monitor for aspiration dc to SNF in am; monitor for any neuro changes prior to dc impression, plan, and exam edited and reviewed in detail care discussed with RN Subjective ROS Limited/Unobtainable: Yes Allergies: Coded Allergies: No Known Allergies (Unverified , 11/12/16) Subjective patient fell last night some bleeding noted in forehead neuro without change Objective Last 24 Hour Vital Signs Date Time Temp Pulse Resp B/P Pulse Ox O2 Delivery O2 Flow Rate FiO2 11/16/16 04:00 85 11/16/16 04:00 98.2 87 24 106/56 94 Trach Collar 11/16/16 01:30 96 Trach Collar 40 11/16/16 01:30 Trach Collar 40 11/16/16 01:25 99.1 11/16/16 00:00 115 11/16/16 00:00 100.9 93 24 130/58 92 Trach Collar 11/15/16 22:50 100.0 88 20 126/80 88 Trach Collar 4.0 11/15/16 22:20 98.2 99 20 157/79 89 Trach Collar 4.0 11/15/16 22:05 98.2 98 20 151/82 92 Trach Collar 4.0 11/15/16 21:23 94 Trach Collar 40 11/15/16 21:23 Trach Collar 40 11/15/16 20:00 97.2 76 18 131/86 85 Room Air 11/15/16 16:00 97.9 140 19 149/70 88 Room Air 11/15/16 13:58 Trach Collar 40 11/15/16 13:58 96 Trach Collar 40 11/15/16 13:58 86 22 96 Trach Collar 12.0 40 11/15/16 12:00 98.2 85 20 138/75 93 Trach Collar 11/15/16 09:03 105 117/69 11/15/16 08:11 Trach Collar 40 11/15/16 08:11 93 Trach Collar 40 11/15/16 08:00 98.1 105 18 117/69 97 Trach Collar Intake and Output 11/15/16 11/16/16 19:00 07:00 Intake Total 1337.5 ml 440 ml Output Total 500 ml Balance 837.5 ml 440 ml Intake Oral 240 ml Free Water 50 ml IV Total 827.5 ml 200 ml Other 460 ml Output Urine Total 500 ml # Voids 3 Objective GENERAL:: The patient is a chronically ill appearing male. HEENT: Fairly negative. The patient overall has significant facial/scalp deformities with chronic erythematous changes. Extraocular movements are grossly intact. scalp lesion covered NECK: Supple. Carotids 2+. Tracheostomy in midline. LUNGS: Coarse breath sounds. Moderate air entry. without change from prior CARDIAC: S1 and S2. RRR without murmurs, rubs, or gallops. ABDOMEN: Soft, nontender, and nondistended. EXTREMITIES: No cyanosis or clubbing. No edema. NEUROLOGIC: Grossly nonfocal. no significant change Microbiology Date/Time Source Procedure Growth Status 11/13/16 13:40 Sputum Expectorated Gram Stain - Final Resulted 11/13/16 13:40 Sputum Expectorated Sputum Culture Pending Resulted 11/13/16 09:30 Urine,Clean Catch Urine Culture - Preliminary NO GROWTH AFTER 24 HOURS Resulted Laboratory Tests 11/15/16 09:40: White Blood Count 9.4, Red Blood Count 3.57L, Hemoglobin 10.5L, Hematocrit 31.7L , Mean Corpuscular Volume 89, Mean Corpuscular Hemoglobin 29.3, Mean Corpuscular Hemoglobin Concent 33.0, Red Cell Distribution Width 12.9, Platelet Count 287, Mean Platelet Volume 8.5, Neutrophils (%) (Auto) 83.0H, Lymphocytes ( %) (Auto) 4.2L, Monocytes (%) (Auto) 7.6, Eosinophils (%) (Auto) 4.2H, Basophils (%) (Auto) 1.1 Current Medications Medications (Trade) Dose Ordered Sig/[place] Route PRN Reason Start Time Stop Time Status Last Admin Dose Admin Acetaminophen (Tylenol) 650 mg Q4H PRN NG Mild Pain/Temp > 100.5 11/16/16 01:00 12/16/16 00:59 11/16/16 00:55 Acetaminophen (Tylenol) 650 mg Q4H PRN ORAL Fever/Headache/Mild Pain 11/16/16 01:00 12/16/16 00:59 Acetaminophen/ Hydrocodone Bitart ([place] 5/325) 1 tab Q6H PRN GT Moderate Pain (Pain Scale 4-6) 11/16/16 03:00 11/23/16 02:59 Acetaminophen/ Hydrocodone Bitart ([place] 5/325) 2 tab Q6H PRN ORAL Severe Pain (Pain Scale 7-10) 11/16/16 03:00 11/23/16 02:59 11/16/16 05:26 Albuterol/ Ipratropium (DuoNeb 0.5-3(2.5)mg/3ml) 3 ml Q4H PRN HHN Shortness of Breath 11/16/16 01:00 11/21/16 00:59 Artificial Tears (Akwa-Tears) 1 drop Q4H PRN BOTH EYES DRY EYES 11/16/16 01:45 12/16/16 01:44 Aspirin (ASA) 81 mg DAILY GT 11/16/16 09:00 12/16/16 08:59 Atorvastatin Calcium (Lipitor) 5 mg BEDTIME ORAL 11/16/16 21:00 12/16/16 20:59 Bisacodyl (Dulcolax) 10 mg DAILY PRN RECTAL If MOM is ineffective 11/16/16 09:00 12/16/16 08:59 Clonidine HCl (Catapres) 0.1 mg Q6H PRN GT SBP >160 11/16/16 00:00 12/16/16 00:00 Levothyroxine Sodium (Synthroid) 50 mcg DAILY GT 11/16/16 09:00 12/16/16 08:59 Magnesium Hydroxide (Mom) 30 ml DAILY PRN GT IF NO BM FOR 3 DAYS 11/16/16 09:00 12/16/16 08:59 Multivitamins (Multivitamin Hexavitamin) 5 ml DAILY GT 11/16/16 09:00 12/16/16 08:59 Ondansetron HCl (Zofran ODT) 4 mg Q6H PRN GT Nausea & Vomiting 11/16/16 03:00 12/16/16 02:59 Phenytoin (Dilantin) 400 mg BID GT 11/16/16 09:00 12/16/16 08:59 Piperacillin Sod/ Tazobactam Sod 3.375 gm/Dextrose 110 ml @ 27.5 mls/hr Q8HR IVPB 11/16/16 06:00 11/23/16 05:59 11/16/16 05:25 Polyethylene Glycol (Miralax) 17 gm DAILY PRN ORAL if MOM ineffective 11/16/16 09:00 12/16/16 08:59 Ranitidine HCl (Zantac) 150 mg DAILY ORAL 11/16/16 09:00 12/16/16 08:59 Sodium Chloride 1,000 ml @ 100 mls/hr Q10H IV 11/15/16 23:30 12/15/16 23:29 11/15/16 23:56 Sodium Phosphate (Fleet's Sodium Phosl Enema) 133 ml DAILY PRN RECTAL If MOM & Dulcolax ineffective 11/16/16 09:00 12/16/16 08:59 Sotalol HCl (Betapace) 80 mg DAILY ORAL 11/16/16 09:00 12/16/16 08:59 Vancomycin HCl (Vanco rx to dose) 1 ea DAILY PRN MISC Per rx protocol 11/16/16 09:00 Vancomycin HCl/ Dextrose (Vancomycin/D5W) 275 ml @ 183.333 mls/hr Q24H IVPB 11/16/16 20:00 11/21/16 19:59 DOLORES LARA Nov 16, 2016 06:32
[2016-11-16 08:00] VITALS: BP 115/63
[2016-11-16] MEDS ORDERED: Milk of Magnesia 30ml Ud GT PRN (09:00)
[2016-11-16] MEDS ORDERED: Fleet's Enema 133ml RECTAL PRN (09:00)
[2016-11-16] MEDS ORDERED: Miralax 17gm pkt ORAL PRN (09:00)
[2016-11-16] MEDS: Multivitamin 5ml Liquid GT SCH (10:15)
[2016-11-16] MEDS: Phenytoin Susp 100mg/4ml GT SCH ×2 (10:16→18:46)
[2016-11-16] MEDS: Sotalol 80mg tab ORAL SCH (10:17)
[2016-11-16] MEDS: Aspirin Baby 81mg GT SCH (10:17)
[2016-11-16 12:00] VITALS: BP 114/65
--- NOTE | 2016-11-16 12:01 | Diagnostic Imaging Report ---
Indications: Trauma Technique: Spiral acquisitions obtained through the brain. Angled axial and coronal 5 x 5 mm slices were reconstructed. Total dose length product 1499 mGycm. CTDI vol(s) 70 mGy Comparison: None Findings: There is extensive right periorbital scalp soft tissue swelling. No underlying fracture is demonstrated. There is extensive postsurgical change of the left face and skull, with a large craniotomy defect involving much of the left frontal, parietal, and temporal bones. There is overlying mesh. In addition, there has been prior resection of the left orbit, the lateral ethmoid sinuses, the zygomatic arch, and anterior left sphenoid wing. Numerous surgical clips are present. There are destructive changes of the left maxillary roof and lateral mastoid extending into the malar eminence. There is opacification of the frontal sinus with overlying bony destruction as well. The residual left ethmoid sinuses are opacified. Extensive surgical clips are seen in the bilateral face. No acute intracranial bleed or edema, mass effect or midline shift. Normal bennett-white differentiation. There is mild age-related enlargement of the ventricles and extra axial CSF spaces. The residual calvarium is intact. There is bilateral mastoid opacification. There is opacification of the middle ear cavities bilaterally. The maxillary sinuses are opacified bilaterally Impression: Evidence of right periorbital facial soft tissue trauma Negative for acute intracranial bleed or mass effect Chronic and age-related changes, as described Extensive postsurgical changes, as described, with resection of the left anterior calvarium, entire left orbit, and left zygomatic arch and anterior sphenoid wing.. Opacification of the frontal sinus with surrounding destructive changes, concerning for active involvement by tumor. Correlate with clinical history and findings. Sinus disease Mastoid disease This agrees with the preliminary interpretation provided overnight by [facility] teleradiology service. The CT scanner at [facility] is accredited by the [employer] and the scans are performed using protocols designed to limit radiation exposure to as low as reasonably achievable to attain images of sufficient resolution adequate for diagnostic evaluation.
--- NOTE | 2016-11-16 14:09 | General Progress Note ---
Assessment/Plan Problem List: (1) Hospital acquired PNA ICD Codes: J18.9 - Pneumonia, unspecified organism SNOMED: 428198718 (2) Head and neck cancer ICD Codes: C76.0 - Malignant neoplasm of head, face and neck SNOMED: 687690042 (3) Respiratory insufficiency ICD Codes: R06.89 - Other abnormalities of breathing SNOMED: 013226634 (4) Encephalopathy acute ICD Codes: G93.40 - Encephalopathy, unspecified SNOMED: 3095888 (5) r/o sepsis Status: stable Assessment/Plan iv abx per ID neuro checks resp care gt feeds follow up cultures follow up labs trach care Subjective ROS Limited/Unobtainable: Yes Constitutional: Reports: malaise, weakness HEENT: Reports: no symptoms Cardiovascular: Reports: no symptoms Respiratory: Reports: cough, shortness of breath Gastrointestinal/Abdominal: Reports: difficulty swallowing Genitourinary: Reports: no symptoms Neurologic/Psychiatric: Reports: pre-existing deficit Endocrine: Reports: no symptoms Hematologic/Lymphatic: Reports: anemia Allergies: Coded Allergies: No Known Allergies (Unverified , 11/12/16) All Systems: reviewed and negative except above Subjective s/p mechanical fall. in bed. + extensive facial edema and lac(sutured) right eyebrow Objective Last 24 Hour Vital Signs Date Time Temp Pulse Resp B/P Pulse Ox O2 Delivery O2 Flow Rate FiO2 11/16/16 12:30 Trach Collar 40 11/16/16 12:30 95 Trach Collar 40 11/16/16 12:00 77 11/16/16 12:00 97.7 74 20 114/65 99 Mechanical Ventilator 45 11/16/16 10:17 80 115/63 11/16/16 08:00 97.7 80 19 115/63 93 Trach Collar 35 11/16/16 08:00 80 11/16/16 06:50 Trach Collar 40 11/16/16 06:50 96 Trach Collar 40 11/16/16 04:00 85 11/16/16 04:00 98.2 87 24 106/56 94 Trach Collar 11/16/16 01:30 96 Trach Collar 40 11/16/16 01:30 Trach Collar 40 11/16/16 01:25 99.1 11/16/16 00:00 115 11/16/16 00:00 100.9 93 24 130/58 92 Trach Collar 11/15/16 22:50 100.0 88 20 126/80 88 Trach Collar 4.0 11/15/16 22:20 98.2 99 20 157/79 89 Trach Collar 4.0 11/15/16 22:05 98.2 98 20 151/82 92 Trach Collar 4.0 11/15/16 21:23 94 Trach Collar 40 11/15/16 21:23 Trach Collar 40 11/15/16 20:00 97.2 76 18 131/86 85 Room Air 11/15/16 16:00 97.9 140 19 149/70 88 Room Air Intake and Output 11/15/16 11/16/16 19:00 07:00 Intake Total 1337.5 ml 1117.5 ml Output Total 500 ml 100 ml Balance 837.5 ml 1017.5 ml Intake Oral 240 ml Free Water 50 ml IV Total 827.5 ml 627.5 ml Tube Feeding 250 ml Other 460 ml Output Urine Total 500 ml 100 ml # Voids 3 Height (Feet): 5 Height (Inches): 10.00 Weight (Pounds): 155 General Appearance: WD/WN, alert, lethargic Neck: supple Cardiovascular: regular rhythm Respiratory/Chest: rhonchi - bilaterally Abdomen: normal bowel sounds, non tender, soft, no organomegaly Edema: no edema noted Arm (L), no edema noted Arm (R), no edema noted Leg (L), no edema noted Leg (R), no edema noted Pedal (L), no edema noted Pedal (R), no edema noted Generalized Neurologic: alert, disoriented REGGIE DE JESUS Nov 16, 2016 14:09
--- NOTE | 2016-11-16 15:42 | Infectious Diseases Prog Note ---
Assessment/Plan Assessment/Plan A: 1. pneumonia with pseudomonas 2. GT site cellulitis with staph aureus 3. 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 fever P 1. continue vancomycin iv, Zosyn 2. will follow up cultures Subjective ROS Limited/Unobtainable: Yes Constitutional: Reports: fever, other - T zkg=899.9 Allergies: Coded Allergies: No Known Allergies (Unverified , 11/12/16) Objective Vital Signs Last 24 Hour Vital Signs Date Time Temp Pulse Resp B/P Pulse Ox O2 Delivery O2 Flow Rate FiO2 11/16/16 12:30 Trach Collar 40 11/16/16 12:30 95 Trach Collar 40 11/16/16 12:00 77 11/16/16 12:00 97.7 74 20 114/65 99 Mechanical Ventilator 45 11/16/16 10:17 80 115/63 11/16/16 08:00 97.7 80 19 115/63 93 Trach Collar 35 11/16/16 08:00 80 11/16/16 06:50 Trach Collar 40 11/16/16 06:50 96 Trach Collar 40 11/16/16 04:00 85 11/16/16 04:00 98.2 87 24 106/56 94 Trach Collar 11/16/16 01:30 96 Trach Collar 40 11/16/16 01:30 Trach Collar 40 11/16/16 01:25 99.1 11/16/16 00:00 115 11/16/16 00:00 100.9 93 24 130/58 92 Trach Collar 11/15/16 22:50 100.0 88 20 126/80 88 Trach Collar 4.0 11/15/16 22:20 98.2 99 20 157/79 89 Trach Collar 4.0 11/15/16 22:05 98.2 98 20 151/82 92 Trach Collar 4.0 11/15/16 21:23 94 Trach Collar 40 11/15/16 21:23 Trach Collar 40 11/15/16 20:00 97.2 76 18 131/86 85 Room Air 11/15/16 16:00 97.9 140 19 149/70 88 Room Air Height (Feet): 5 Height (Inches): 10.00 Weight (Pounds): 155 HEENT: status post trach, other - frotal ulcer, left eye removed, swelling of R eyelid, jaw masses & swelling Respiratory/Chest: lungs clear, other Cardiovascular: normal rate Abdomen: soft, non tender, other - GT feeding Neurologic/Psychiatric: aphasia Current Medications Medications (Trade) Dose Ordered Sig/[place] Route PRN Reason Start Time Stop Time Status Last Admin Dose Admin Acetaminophen (Tylenol) 650 mg Q4H PRN NG Mild Pain/Temp > 100.5 11/16/16 01:00 12/16/16 00:59 11/16/16 00:55 Acetaminophen (Tylenol) 650 mg Q4H PRN ORAL Fever/Headache/Mild Pain 11/16/16 01:00 12/16/16 00:59 Acetaminophen/ Hydrocodone Bitart ([place] 5/325) 1 tab Q6H PRN GT Moderate Pain (Pain Scale 4-6) 11/16/16 03:00 11/23/16 02:59 Acetaminophen/ Hydrocodone Bitart ([place] 5/325) 2 tab Q6H PRN ORAL Severe Pain (Pain Scale 7-10) 11/16/16 03:00 11/23/16 02:59 11/16/16 14:14 Albuterol/ Ipratropium (DuoNeb 0.5-3(2.5)mg/3ml) 3 ml Q4H PRN HHN Shortness of Breath 11/16/16 01:00 11/21/16 00:59 Artificial Tears (Akwa-Tears) 1 drop Q4H PRN BOTH EYES DRY EYES 11/16/16 01:45 12/16/16 01:44 Aspirin (ASA) 81 mg DAILY GT 11/16/16 09:00 12/16/16 08:59 11/16/16 10:17 Atorvastatin Calcium (Lipitor) 5 mg BEDTIME ORAL 11/16/16 21:00 12/16/16 20:59 Bisacodyl (Dulcolax) 10 mg DAILY PRN RECTAL If MOM is ineffective 11/16/16 09:00 12/16/16 08:59 Clonidine HCl (Catapres) 0.1 mg Q6H PRN GT SBP >160 11/16/16 00:00 12/16/16 00:00 Levothyroxine Sodium (Synthroid) 50 mcg DAILY GT 11/16/16 09:00 12/16/16 08:59 11/16/16 10:16 Magnesium Hydroxide (Mom) 30 ml DAILY PRN GT IF NO BM FOR 3 DAYS 11/16/16 09:00 12/16/16 08:59 Multivitamins (Multivitamin Hexavitamin) 5 ml DAILY GT 11/16/16 09:00 12/16/16 08:59 11/16/16 10:15 Ondansetron HCl (Zofran ODT) 4 mg Q6H PRN GT Nausea & Vomiting 11/16/16 03:00 12/16/16 02:59 Phenytoin (Dilantin) 400 mg BID GT 11/16/16 09:00 12/16/16 08:59 11/16/16 10:16 Piperacillin Sod/ Tazobactam Sod 3.375 gm/Dextrose 110 ml @ 27.5 mls/hr Q8HR IVPB 11/16/16 06:00 11/23/16 05:59 11/16/16 14:09 Polyethylene Glycol (Miralax) 17 gm DAILY PRN ORAL if MOM ineffective 11/16/16 09:00 12/16/16 08:59 Ranitidine HCl (Zantac) 150 mg DAILY ORAL 11/16/16 09:00 12/16/16 08:59 11/16/16 10:17 Sodium Chloride 1,000 ml @ 100 mls/hr Q10H IV 11/15/16 23:30 12/15/16 23:29 11/16/16 10:14 Sodium Phosphate (Fleet's Sodium Phosl Enema) 133 ml DAILY PRN RECTAL If MOM & Dulcolax ineffective 11/16/16 09:00 12/16/16 08:59 Sotalol HCl (Betapace) 80 mg DAILY ORAL 11/16/16 09:00 12/16/16 08:59 11/16/16 10:17 Vancomycin HCl (Vanco rx to dose) 1 ea DAILY PRN MISC Per rx protocol 11/16/16 09:00 Vancomycin HCl/ Dextrose (Vancomycin/D5W) 275 ml @ 183.333 mls/hr Q24H IVPB 11/16/16 20:00 11/21/16 19:59 MIGUEL A BENTON Nov 16, 2016 15:42
[2016-11-16 16:00] VITALS: BP 110/59
[2016-11-16 20:00] VITALS: BP 120/60
[2016-11-16] MEDS: Vancomycin 1.25 GM in D5W 275 ML IVPB SCH ×2 (20:28→20:30)
--- NOTE | 2016-11-16 22:50 | Diagnostic Imaging Report ---
APPROVED REPORT CPT Code: 13221 Present Symptoms Shortness of breath Comments: Cough BILATERAL: Imaging reveals a patent deep venous system bilaterally. There is no evidence of thrombus within the femoral, popliteal or tibial segments. The greater saphenous veins are also within normal limits. Doppler indicates normal spontaneous flow within these segments.
[2016-11-17] VITALS: BP 132/81
[2016-11-17] MEDS: Acetaminophen 650mg/20.3ml NG PRN (01:36)
[2016-11-17 04:00] VITALS: BP 115/70
[2016-11-17] MEDS: Piperacillin/Tazobactam 3.375 GM in D5W 110 ML IVPB SCH ×3 (05:43→21:58)
[2016-11-17] MEDS: Vancomycin 1gm in D5W 275ml IVPB SCH ×2 (05:49→17:41)
[2016-11-17 08:00] VITALS: BP 109/65
--- NOTE | 2016-11-17 08:21 | General Progress Note ---
Assessment/Plan Problem List: (1) Hospital acquired PNA ICD Codes: J18.9 - Pneumonia, unspecified organism SNOMED: 893390673 (2) Head and neck cancer ICD Codes: C76.0 - Malignant neoplasm of head, face and neck SNOMED: 486703523 (3) Respiratory insufficiency ICD Codes: R06.89 - Other abnormalities of breathing SNOMED: 570223283 (4) Encephalopathy acute ICD Codes: G93.40 - Encephalopathy, unspecified SNOMED: 6533227 (5) r/o sepsis Status: stable, not improved Assessment/Plan iv abx per ID neuro checks resp care gt feeds follow up cultures follow up labs trach care check abg repeat cxr Subjective ROS Limited/Unobtainable: Yes Constitutional: Reports: weakness HEENT: Reports: other - facial swelling Cardiovascular: Reports: no symptoms Respiratory: Reports: cough, shortness of breath, sputum Gastrointestinal/Abdominal: Reports: difficulty swallowing Genitourinary: Reports: no symptoms Neurologic/Psychiatric: Reports: no symptoms Endocrine: Reports: no symptoms Hematologic/Lymphatic: Reports: no symptoms Allergies: Coded Allergies: No Known Allergies (Unverified , 11/12/16) All Systems: reviewed and negative except above Subjective more sob. O2 sats lower this an. On trach collar 10l with cool mist. no distress. Objective Last 24 Hour Vital Signs Date Time Temp Pulse Resp B/P Pulse Ox O2 Delivery O2 Flow Rate FiO2 11/17/16 01:08 Trach Collar 40 11/17/16 01:08 97 Trach Collar 40 11/17/16 00:08 98 11/17/16 00:00 100.8 99 17 132/81 92 Mechanical Ventilator 11/16/16 20:00 97 11/16/16 20:00 97.8 80 20 120/60 91 Trach Collar 40 11/16/16 19:00 100 Trach Collar 40 11/16/16 19:00 Trach Collar 40 11/16/16 16:00 75 11/16/16 16:00 98.1 73 20 110/59 92 40 11/16/16 15:13 97.7 11/16/16 12:30 Trach Collar 40 11/16/16 12:30 95 Trach Collar 40 11/16/16 12:00 77 11/16/16 12:00 97.7 74 20 114/65 99 Mechanical Ventilator 45 11/16/16 10:17 80 115/63 Intake and Output 11/16/16 11/17/16 19:00 07:00 Intake Total 600 ml Output Total 850 ml 300 ml Balance -250 ml -300 ml Free Water 100 ml Tube Feeding 500 ml Output Urine Total 850 ml 300 ml Laboratory Tests 11/16/16 19:35: Vancomycin Level Trough 4.0L Height (Feet): 5 Height (Inches): 10.00 Weight (Pounds): 155 Objective General Appearance: WD/WN, alert, lethargic Neck: supple Cardiovascular: regular rhythm Respiratory/Chest: rhonchi - bilaterally Abdomen: normal bowel sounds, non tender, soft, no organomegaly Edema: no edema noted Arm (L), no edema noted Arm (R), no edema noted Leg (L), no edema noted Leg (R), no edema noted Pedal (L), no edema noted Pedal (R), no edema noted Generalized Neurologic: alert, disoriented REGGIE DE JESUS Nov 17, 2016 08:21
[2016-11-17] MEDS: Aspirin Baby 81mg GT SCH (08:29)
[2016-11-17] MEDS: Sotalol 80mg tab ORAL SCH (08:29)
[2016-11-17] MEDS: Multivitamin 5ml Liquid GT SCH (08:30)
[2016-11-17] MEDS: Phenytoin Susp 100mg/4ml GT SCH ×2 (08:30→17:41)
--- NOTE | 2016-11-17 08:57 | Infectious Diseases Prog Note ---
Assessment/Plan Assessment/Plan A: 1. pneumonia with pseudomonas 2. GT site cellulitis with staph aureus 3. 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 fever P 1. continue vancomycin iv, Zosyn 2. will follow up cultures Subjective ROS Limited/Unobtainable: Yes Constitutional: Reports: fever, other - T max= 100.8 Allergies: Coded Allergies: No Known Allergies (Unverified , 11/12/16) Objective Vital Signs Last 24 Hour Vital Signs Date Time Temp Pulse Resp B/P Pulse Ox O2 Delivery O2 Flow Rate FiO2 11/17/16 08:29 80 115/70 11/17/16 04:00 97.7 80 18 115/70 92 Trach Collar 11/17/16 03:50 97 11/17/16 01:08 Trach Collar 40 11/17/16 01:08 97 Trach Collar 40 11/17/16 00:08 98 11/17/16 00:00 100.8 99 17 132/81 92 Mechanical Ventilator 11/16/16 20:00 97 11/16/16 20:00 97.8 80 20 120/60 91 Trach Collar 40 11/16/16 19:00 100 Trach Collar 40 11/16/16 19:00 Trach Collar 40 11/16/16 16:00 75 11/16/16 16:00 98.1 73 20 110/59 92 40 11/16/16 15:13 97.7 11/16/16 12:30 Trach Collar 40 11/16/16 12:30 95 Trach Collar 40 11/16/16 12:00 77 11/16/16 12:00 97.7 74 20 114/65 99 Mechanical Ventilator 45 11/16/16 10:17 80 115/63 Height (Feet): 5 Height (Inches): 10.00 Weight (Pounds): 155 HEENT: status post trach, other - R facial mass, left eye removed Respiratory/Chest: rhonchi - bilaterally, other Cardiovascular: normal rate Abdomen: soft, non tender, other - GT feeding Skin: ulcers, other - forehead Neurologic/Psychiatric: other - open eye Laboratory Tests Test 11/16/16 19:35 Vancomycin Level Trough 4.0 ug/mL (5.0-12.0) L Current Medications Medications (Trade) Dose Ordered Sig/Hernando Route PRN Reason Start Time Stop Time Status Last Admin Dose Admin Acetaminophen (Tylenol) 650 mg Q4H PRN NG Mild Pain/Temp > 100.5 11/16/16 01:00 12/16/16 00:59 11/17/16 01:36 Acetaminophen (Tylenol) 650 mg Q4H PRN ORAL Fever/Headache/Mild Pain 11/16/16 01:00 12/16/16 00:59 Acetaminophen/ Hydrocodone Bitart ([place] 5/325) 1 tab Q6H PRN GT Moderate Pain (Pain Scale 4-6) 11/16/16 03:00 11/23/16 02:59 Acetaminophen/ Hydrocodone Bitart ([place] 5/325) 2 tab Q6H PRN ORAL Severe Pain (Pain Scale 7-10) 11/16/16 03:00 11/23/16 02:59 11/16/16 14:14 Albuterol/ Ipratropium (DuoNeb 0.5-3(2.5)mg/3ml) 3 ml Q4H PRN HHN Shortness of Breath 11/16/16 01:00 11/21/16 00:59 Artificial Tears (Akwa-Tears) 1 drop Q4H PRN BOTH EYES DRY EYES 11/16/16 01:45 12/16/16 01:44 Aspirin (ASA) 81 mg DAILY GT 11/16/16 09:00 12/16/16 08:59 11/17/16 08:29 Atorvastatin Calcium (Lipitor) 5 mg BEDTIME ORAL 11/16/16 21:00 12/16/16 20:59 11/16/16 22:36 Bisacodyl (Dulcolax) 10 mg DAILY PRN RECTAL If MOM is ineffective 11/16/16 09:00 12/16/16 08:59 Clonidine HCl (Catapres) 0.1 mg Q6H PRN GT SBP >160 11/16/16 00:00 12/16/16 00:00 Levothyroxine Sodium (Synthroid) 50 mcg DAILY GT 11/16/16 09:00 12/16/16 08:59 11/17/16 08:31 Magnesium Hydroxide (Mom) 30 ml DAILY PRN GT IF NO BM FOR 3 DAYS 11/16/16 09:00 12/16/16 08:59 Multivitamins (Multivitamin Hexavitamin) 5 ml DAILY GT 11/16/16 09:00 12/16/16 08:59 11/17/16 08:30 Ondansetron HCl (Zofran ODT) 4 mg Q6H PRN GT Nausea & Vomiting 11/16/16 03:00 12/16/16 02:59 Phenytoin (Dilantin) 400 mg BID GT 11/16/16 09:00 12/16/16 08:59 11/17/16 08:30 Piperacillin Sod/ Tazobactam Sod/ Dextrose (Zosyn/D5W) 110 ml @ 27.5 mls/hr Q8HR IVPB 11/16/16 06:00 11/23/16 05:59 11/17/16 05:43 Polyethylene Glycol (Miralax) 17 gm DAILY PRN ORAL if MOM ineffective 11/16/16 09:00 12/16/16 08:59 Ranitidine HCl (Zantac) 150 mg DAILY ORAL 11/16/16 09:00 12/16/16 08:59 11/17/16 08:29 Sodium Chloride 1,000 ml @ 100 mls/hr Q10H IV 11/15/16 23:30 12/15/16 23:29 11/16/16 20:09 Sodium Phosphate (Fleet's Sodium Phosl Enema) 133 ml DAILY PRN RECTAL If MOM & Dulcolax ineffective 11/16/16 09:00 12/16/16 08:59 Sotalol HCl (Betapace) 80 mg DAILY ORAL 11/16/16 09:00 12/16/16 08:59 11/17/16 08:29 Vancomycin HCl 1 ea 1 ea DAILY PRN MISC Per rx protocol 11/16/16 09:00 Vancomycin HCl/ Dextrose (Vancomycin/D5W) 275 ml @ 183.708 mls/hr Q12HR@0600,1800 IVPB 11/17/16 06:00 11/20/16 05:59 11/17/16 05:49 MIGUEL A BENTON Nov 17, 2016 08:57
--- NOTE | 2016-11-17 09:03 | Pulmonology Progress Note ---
Assessment/Plan Assessment/Plan IMPRESSION: 1. Respiratory failure, tracheostomy. 2. History of squamous cell cancer. 3. Significant facial and skull deformity. 4. History of seizure. 5. History of hyperlipidemia. 6. History of dysrhythmias. 7. MRSA 8. s/p fall with scalp injury 9. chronic encephalopathy PLAN hold dc head CT; none acute neuro evaluation still on chemo and to undergo further chemo monitor neuro exam repeat cbc normal wbc respiratory care oxygen monitor for change monitor for aspiration dc to SNF in am; monitor for any neuro changes prior to dc impression, plan, and exam edited and reviewed in detail care discussed with RN Subjective ROS Limited/Unobtainable: Yes Allergies: Coded Allergies: No Known Allergies (Unverified , 11/12/16) Subjective patient fell last night some bleeding noted in forehead neuro without change Objective Last 24 Hour Vital Signs Date Time Temp Pulse Resp B/P Pulse Ox O2 Delivery O2 Flow Rate FiO2 11/17/16 08:29 80 115/70 11/17/16 04:00 97.7 80 18 115/70 92 Trach Collar 11/17/16 03:50 97 11/17/16 01:08 Trach Collar 40 11/17/16 01:08 97 Trach Collar 40 11/17/16 00:08 98 11/17/16 00:00 100.8 99 17 132/81 92 Mechanical Ventilator 11/16/16 20:00 97 11/16/16 20:00 97.8 80 20 120/60 91 Trach Collar 40 11/16/16 19:00 100 Trach Collar 40 11/16/16 19:00 Trach Collar 40 11/16/16 16:00 75 11/16/16 16:00 98.1 73 20 110/59 92 40 11/16/16 15:13 97.7 11/16/16 12:30 Trach Collar 40 11/16/16 12:30 95 Trach Collar 40 11/16/16 12:00 77 11/16/16 12:00 97.7 74 20 114/65 99 Mechanical Ventilator 45 11/16/16 10:17 80 115/63 Intake and Output 11/16/16 11/17/16 19:00 07:00 Intake Total 600 ml Output Total 850 ml 300 ml Balance -250 ml -300 ml Free Water 100 ml Tube Feeding 500 ml Output Urine Total 850 ml 300 ml Objective GENERAL:: The patient is a chronically ill appearing male. reduced LOC HEENT: Fairly negative. The patient overall has significant facial/scalp deformities with chronic erythematous changes. Extraocular movements are grossly intact. scalp lesion covered NECK: Supple. Carotids 2+. Tracheostomy in midline. LUNGS: Coarse breath sounds. Moderate air entry. without change from prior CARDIAC: S1 and S2. RRR without murmurs, rubs, or gallops. ABDOMEN: Soft, nontender, and nondistended. EXTREMITIES: No cyanosis or clubbing. No edema. NEUROLOGIC: Grossly nonfocal. more withdrawn Laboratory Tests 11/16/16 19:35: Vancomycin Level Trough 4.0L Current Medications Medications (Trade) Dose Ordered Sig/[place] Route PRN Reason Start Time Stop Time Status Last Admin Dose Admin Acetaminophen (Tylenol) 650 mg Q4H PRN NG Mild Pain/Temp > 100.5 11/16/16 01:00 12/16/16 00:59 11/17/16 01:36 Acetaminophen (Tylenol) 650 mg Q4H PRN ORAL Fever/Headache/Mild Pain 11/16/16 01:00 12/16/16 00:59 Acetaminophen/ Hydrocodone Bitart ([place] 5/325) 1 tab Q6H PRN GT Moderate Pain (Pain Scale 4-6) 11/16/16 03:00 11/23/16 02:59 Acetaminophen/ Hydrocodone Bitart ([place] 5/325) 2 tab Q6H PRN ORAL Severe Pain (Pain Scale 7-10) 11/16/16 03:00 11/23/16 02:59 11/16/16 14:14 Albuterol/ Ipratropium (DuoNeb 0.5-3(2.5)mg/3ml) 3 ml Q4H PRN HHN Shortness of Breath 11/16/16 01:00 11/21/16 00:59 Artificial Tears (Akwa-Tears) 1 drop Q4H PRN BOTH EYES DRY EYES 11/16/16 01:45 12/16/16 01:44 Aspirin (ASA) 81 mg DAILY GT 11/16/16 09:00 12/16/16 08:59 11/17/16 08:29 Atorvastatin Calcium (Lipitor) 5 mg BEDTIME ORAL 11/16/16 21:00 12/16/16 20:59 11/16/16 22:36 Bisacodyl (Dulcolax) 10 mg DAILY PRN RECTAL If MOM is ineffective 11/16/16 09:00 12/16/16 08:59 Clonidine HCl (Catapres) 0.1 mg Q6H PRN GT SBP >160 11/16/16 00:00 12/16/16 00:00 Levothyroxine Sodium (Synthroid) 50 mcg DAILY GT 11/16/16 09:00 12/16/16 08:59 11/17/16 08:31 Magnesium Hydroxide (Mom) 30 ml DAILY PRN GT IF NO BM FOR 3 DAYS 11/16/16 09:00 12/16/16 08:59 Multivitamins (Multivitamin Hexavitamin) 5 ml DAILY GT 11/16/16 09:00 12/16/16 08:59 11/17/16 08:30 Ondansetron HCl (Zofran ODT) 4 mg Q6H PRN GT Nausea & Vomiting 11/16/16 03:00 12/16/16 02:59 Phenytoin (Dilantin) 400 mg BID GT 11/16/16 09:00 12/16/16 08:59 11/17/16 08:30 Piperacillin Sod/ Tazobactam Sod/ Dextrose (Zosyn/D5W) 110 ml @ 27.5 mls/hr Q8HR IVPB 11/16/16 06:00 11/23/16 05:59 11/17/16 05:43 Polyethylene Glycol (Miralax) 17 gm DAILY PRN ORAL if MOM ineffective 11/16/16 09:00 12/16/16 08:59 Ranitidine HCl (Zantac) 150 mg DAILY ORAL 11/16/16 09:00 12/16/16 08:59 11/17/16 08:29 Sodium Chloride 1,000 ml @ 100 mls/hr Q10H IV 11/15/16 23:30 12/15/16 23:29 11/16/16 20:09 Sodium Phosphate (Fleet's Sodium Phosl Enema) 133 ml DAILY PRN RECTAL If MOM & Dulcolax ineffective 11/16/16 09:00 12/16/16 08:59 Sotalol HCl (Betapace) 80 mg DAILY ORAL 11/16/16 09:00 12/16/16 08:59 11/17/16 08:29 Vancomycin HCl 1 ea 1 ea DAILY PRN MISC Per rx protocol 11/16/16 09:00 Vancomycin HCl/ Dextrose (Vancomycin/D5W) 275 ml @ 183.708 mls/hr Q12HR@0600,1800 IVPB 11/17/16 06:00 11/20/16 05:59 11/17/16 05:49 DOLORES LARA Nov 17, 2016 09:02
[2016-11-17 09:04] LABS: ABG PCO2 46.5 mmHg (35.0-45.0)
[2016-11-17 09:07] LABS: ABG ALLEN TEST POSITIVE; ABG BASE EXCESS 6.2
[2016-11-17 12:00] VITALS: BP 103/56
[2016-11-17 12:11] LABS: BASOPHILS % (AUTO) 1.5 % (0.0-2.0); EOSINOPHILS % (AUTO) 3.6 % (0.0-3.0); LYMPHOCYTES % (AUTO) 4.3 % (20.0-45.0); MEAN CORPUSCULAR HEMOGLOBIN 29.3 PG (27.0-31.0); MEAN CORPUSCULAR HGB CONC 32.9 G/DL (32.0-36.0); MEAN CORPUSCULAR VOLUME 89 FL (80-99); MEAN PLATELET VOLUME 7.9 FL (6.5-10.1); MONOCYTES % (AUTO) 6.8 % (1.0-10.0); NEUTROPHILS % (AUTO) 83.8 % (45.0-75.0); PLATELET COUNT 320 K/UL (150-450); RED BLOOD COUNT 3.27 M/UL (4.70-6.10); RED CELL DISTRIBUTION WIDTH 12.6 % (11.6-14.8); WHITE BLOOD COUNT 11.1 K/UL (4.8-10.8)
[2016-11-17 12:24] LABS: ALANINE AMINOTRANSFERASE 27 U/L (3-41); ALBUMIN/GLOBULIN RATIO 0.5 (1.0-2.7); ANION GAP 12 (5-15); ASPARTATE AMINO TRANSFERASE 29 U/L (5-40); CALCIUM 8.2 mg/dL (8.6-10.2); CARBON DIOXIDE 28 mEQ/L (20-30); CHLORIDE 93 mEQ/L (98-107); CREATININE 0.7 mg/dL (0.7-1.2); HEMOLYSIS 2; POTASSIUM 3.5 mEQ/L (3.4-4.9); SODIUM 133 mEQ/L (135-145); TOTAL PROTEIN 6.4 g/dL (6.6-8.7)
--- NOTE | 2016-11-17 12:32 | Neurology Progress Note ---
Interim History Interim History ROS Limited/Unobtainable: Yes Objective Physical Exam Last Vital Signs Date Time Temp Pulse Resp B/P Pulse Ox O2 Delivery O2 Flow Rate FiO2 11/17/16 08:29 80 115/70 11/17/16 08:00 97.7 23 11/17/16 07:02 Trach Collar 70 11/17/16 07:01 92 11/15/16 22:50 4.0 Laboratory Tests Test 11/16/16 19:35 11/17/16 07:50 11/17/16 11:30 Vancomycin Level Trough 4.0 ug/mL (5.0-12.0) L Arterial Blood pH 7.440 (7.350-7.450) Arterial Blood Partial Pressure CO2 46.5 mmHg (35.0-45.0) H Arterial Blood Partial Pressure O2 44.9 mmHg (75.0-100.0) Arterial Blood HCO3 31.1 mmol/L (22.0-26.0) H Arterial Blood Oxygen Saturation 82.0 % (92.0-98.0) L Arterial Blood Base Excess 6.2 Shay Test Positive White Blood Count 11.1 K/UL (4.8-10.8) H Red Blood Count 3.27 M/UL (4.70-6.10) L Hemoglobin 9.6 G/DL (14.2-18.0) L Hematocrit 29.1 % (42.0-52.0) L Mean Corpuscular Volume 89 FL (80-99) Mean Corpuscular Hemoglobin 29.3 PG (27.0-31.0) Mean Corpuscular Hemoglobin Concent 32.9 G/DL (32.0-36.0) Red Cell Distribution Width 12.6 % (11.6-14.8) Platelet Count 320 K/UL (150-450) Mean Platelet Volume 7.9 FL (6.5-10.1) Neutrophils (%) (Auto) 83.8 % (45.0-75.0) H Lymphocytes (%) (Auto) 4.3 % (20.0-45.0) L Monocytes (%) (Auto) 6.8 % (1.0-10.0) Eosinophils (%) (Auto) 3.6 % (0.0-3.0) H Basophils (%) (Auto) 1.5 % (0.0-2.0) Sodium Level Pending Potassium Level Pending Chloride Level Pending Carbon Dioxide Level Pending Blood Urea Nitrogen Pending Creatinine Pending Estimat Glomerular Filtration Rate Pending Glucose Level Pending Calcium Level Pending Total Bilirubin Pending Aspartate Amino Transf (AST/SGOT) Pending Alanine Aminotransferase (ALT/SGPT) Pending Alkaline Phosphatase Pending Total Protein Pending Albumin Pending Globulin Pending Impression/Recommendations Problems: (1) s/p blunt R face trauma with periorbital ecchymosis (2) r/o R facial abscess. (3) h/o seizure disorder Status: stable, not improved Recommendations #[id number] JUANIS NAVA Nov 17, 2016 12:32
--- NOTE | 2016-11-17 14:06 | Diagnostic Imaging Report ---
Indication: SOB Technique: One view of the chest Comparison: 10/17/2016 Findings: Interim development of a sizable area of consolidation in the right inferior upper lobe. There is induration of the right lung base with decreased atelectasis. There is left perihilar infiltrate again demonstrated. There is a retrocardiac infiltrate and demonstrated. There is probably a small amount of pleural fluid on the left. Left AICD is again demonstrated. Tracheostomy is again demonstrated Impression: Interim development of infiltrate throughout much of the right upper lobe. Stable left lung infiltrates, as described
[2016-11-17] MEDS ORDERED: NS 275ml ONE (14:40)
[2016-11-17] MEDS ORDERED: Tubing IV Secondary IV ONE ×2 (14:40→15:21)
[2016-11-17 16:00] VITALS: BP_SYST 91
--- NOTE | 2016-11-17 18:28 | Consultation ---
DATE OF CONSULTATION: NEUROLOGICAL CONSULTATION REQUESTING PHYSICIAN: Sarabjit Hunt M.D. HISTORY OF PRESENT ILLNESS: The patient is a 76-year-old man, resident of a nursing facility, who has a long complex medical history, was admitted to this hospital with fevers, evidence of G-tube site cellulitis, and respiratory failure. While undergoing the IV fluids and antibiotic treatment, the patient had mechanical fall yesterday landing on his face. He developed right periorbital ecchymosis. Neurology consult was requested to assess any neurological evidence of trauma. According to medical records, months ago, the patient was treated for facial abscess, facial cellulitis at [facility]. The patient has a history of squamous cell carcinoma affecting skin and scalp and bones. Complex surgical procedures were performed. He had a left craniotomy resection with several parts of facial bones. CT of the brain revealed extensive post surgical changes with a large craniotomy defect, left frontal and parietal temporal lobes with prior resection of the left orbit, lateral ethmoid sinus, zygomatic arch, anterior left sphenoid wing with surgical clips remaining. There is a destructive changes in the left maxillary roof and lateral mastoid extending to the malar eminence, opacification of frontal sinus with overlying bony destruction, residual left ethmoid sinus is opacified and extensive surgical clips in bilateral facial. No acute intracranial bleeding or edema. No mass effect. No midline shift. There is evidence of right periorbital facial soft-tissue trauma, has evidence of sinus disease and mastoid disease. Following admission, chest x-ray obtained revealing possible small left-sided pleural effusion, left perihilar patchy infiltrate, and bibasilar infiltrates. PAST MEDICAL HISTORY: The patient has a history of respiratory failure on tracheostomy, history of chronic seizure disorder, hyperlipidemia, history of PEG placement, and coronary artery disease. There is cardiac pacemaker in place and has a history of chronic obstructive pulmonary disease. RIGHT FACIAL SWELLING NOTED FEW MONTHS AGO, WHICH CONTINUED TO PROGRESS: This was treated as a facial cellulitis and facial abscess. MEDICATIONS: Treatment prior to admission included aspirin, Dulcolax, clonidine, famotidine, hydrocodone p.r.n., Synthroid, ondansetron, Dilantin 400 mg b.i.d., simvastatin and sotalol SOCIAL HISTORY: A resident of nursing facility. FAMILY HISTORY: Unavailable. REVIEW OF SYSTEMS: Unable to obtain due to the patient's status. PHYSICAL EXAMINATION: GENERAL: This is a well-developed and well-nourished man, with significant amount of facial and skull deformities. 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 There is a post craniotomy and cranioplasty left frontotemporal area. Significant facial deformities, facial scarring mainly in left periorbital, periauricular and left neck area. There is significant swelling, tenderness and redness in the right facial area spreading to right upper neck region. There is right periorbital ecchymosis. EXTREMITIES: Upper and lower extremities without clubbing, cyanosis, or edema. Peripheral pulses 1+ symmetric. MENTAL STATUS: The patient is lethargic and on stimulation briefly open eyes. Able to follow one or two simple commands. CRANIAL NERVE II: On the right 3 millimeter responding to light and accommodation. Extraocular movement full range. CRANIAL NERVE V: Normal corneal responses on the right. CRANIAL NERVE VII: Significant facial asymmetry. CRANIAL NERVE IX THROUGH XII: Tongue is in midline. Symmetric palate elevation. Reduced gag response. MOTOR EXAMINATION: Able to move arms and legs against the gravity, but had a poor cooperation. Deep tendon reflexes 1+ symmetric. Plantar response is mute. SENSORY EXAMINATION: No response to pin stimulation. LABORATORY AND DIAGNOSTIC DATA: Following current admission, lab work included a phenytoin level 9.6. Chemistry panel, sodium 131 and blood sugar 176. Hematology panel mild anemia. According to nursing staff, the patient unable to speak due to tracheostomy, but able to comprehend and follow simple commands. He was noted to be drowsy in the last few hours. IMPRESSION: 1. Status post mechanical fall with head trauma, resulting in right periorbital ecchymosis. No evidence traumatic intracranial abnormalities. 2. Squamous cell carcinoma status post radiation therapy, status post multiple facial and skull surgical procedures as well as craniotomy. 3. History of seizure activities. 4. Coronary artery disease. 5. Hyperlipidemia. 6. Rule out right facial abscess. 7. Chemotherapy. RECOMMENDATION: Hold off all unessential treatment. Maintain n Dilantin in the current dose with a therapeutic level. Avoid sedatives. Continue with IV fluids and antibiotics as per ID. Thank you for allowing me to see this interesting patient in neurological consultation. Ion Milagros Tripp DR: SEE JOB#: [id number] CC:
[2016-11-17 20:00] VITALS: BP 141/77
[2016-11-17 21:48] LABS: ABG ALLEN TEST POSITIVE; ABG BASE EXCESS 1.1; ABG PCO2 43.9 mmHg (35.0-45.0)
[2016-11-17] MEDS: Norco 5mg/325mg tab GT PRN (23:32)
[2016-11-18] VITALS: BP 128/67
[2016-11-18 02:07] LABS: ABG BASE EXCESS 3.4; ABG PCO2 42.3 mmHg (35.0-45.0)
[2016-11-18 02:08] LABS: ABG ALLEN TEST POSITIVE
[2016-11-18 04:00] VITALS: BP_SYST 66
--- NOTE | 2016-11-18 04:19 | Emergency Room Report ---
Physical Exam Allegedly patient with respiratory distress and need trach change. Dr. Hunt asked I stand by while the trach was changed due to extensive facial cancer affecting upper airway. Last 24 Hour Vital Signs Date Time Temp Pulse Resp B/P Pulse Ox O2 Delivery O2 Flow Rate FiO2 11/18/16 03:07 82 31 100 11/18/16 01:30 88 42 100 11/18/16 00:31 98.1 11/18/16 00:00 99.0 91 25 128/67 100 Mechanical Ventilator 100 11/18/16 00:00 92 11/17/16 23:46 93 26 100 11/17/16 20:00 98.1 86 22 141/77 91 11/17/16 20:00 82 11/17/16 19:00 89 Trach Collar 100 11/17/16 17:36 Trach Collar 70 11/17/16 16:00 98.9 75 18 91/ 94 Trach Collar 11/17/16 16:00 75 11/17/16 13:55 93 Trach Collar 100 11/17/16 13:53 Trach Collar 70 11/17/16 12:00 71 11/17/16 12:00 97.0 73 22 103/56 93 11/17/16 08:29 80 115/70 11/17/16 08:00 97.7 86 23 109/65 11/17/16 08:00 81 11/17/16 07:02 Trach Collar 70 11/17/16 07:01 92 Trach Collar 70 Sp02 EP Interpretation: reviewed, abnormal - as interpreted by me General Appearance: no apparent distress, Chronically Ill Eyes: bilateral eye PERRL, bilateral eye normal inspection ENT: other - large facial mass Neck: supple Respiratory: respiratory distress - mild, decreased breath sounds, crackles Cardiovascular #1: regular rate, rhythm Gastrointestinal: abnormal bowel sounds - decreased Musculoskeletal: normal range of motion Neurologic: alert Psychiatric: anxious Skin: warm/dry Additional Procedure Procedure Narrative Under my observation. The old trach removed, New trach inserted. Patient tolerated well. Placed on ventilator. Medical Decision Making Diagnostic Impression: Primary Impression: Respiratory insufficiency Additional Impression: Head and neck cancer ER Course Patient needing ventilation. Trach uncuffed. Trach changed without issue. Tolerated well. Last Vital Signs Date Time Temp Pulse Resp B/P Pulse Ox O2 Delivery O2 Flow Rate FiO2 11/18/16 03:07 82 31 100 11/18/16 00:31 98.1 11/18/16 00:00 128/67 100 Mechanical Ventilator 11/15/16 22:50 4.0 Status: improved Referrals: DOLORES HUNT (PCP) Harry Salcido M.D. Nov 18, 2016 04:19
[2016-11-18] MEDS: Vancomycin 1gm in D5W 275ml IVPB SCH (05:08)
[2016-11-18] MEDS: Acetaminophen 650mg/20.3ml NG PRN (05:35)
[2016-11-18] MEDS: Piperacillin/Tazobactam 3.375 GM in D5W 110 ML IVPB SCH (06:26)
[2016-11-18 08:00] VITALS: BP 127/73
--- NOTE | 2016-11-18 08:26 | General Progress Note ---
Assessment/Plan Problem List: (1) Hospital acquired PNA ICD Codes: J18.9 - Pneumonia, unspecified organism SNOMED: 670543452 (2) Head and neck cancer ICD Codes: C76.0 - Malignant neoplasm of head, face and neck SNOMED: 754336419 (3) Respiratory insufficiency ICD Codes: R06.89 - Other abnormalities of breathing SNOMED: 519406478 (4) Encephalopathy acute ICD Codes: G93.40 - Encephalopathy, unspecified SNOMED: 0924967 (5) r/o sepsis Status: stable Assessment/Plan iv abx per ID neuro checks resp care gt feeds follow up cultures follow up labs trach care/vent Subjective ROS Limited/Unobtainable: Yes Constitutional: Reports: malaise, weakness HEENT: Reports: no symptoms Cardiovascular: Reports: no symptoms Respiratory: Reports: SOB at rest, sputum Gastrointestinal/Abdominal: Reports: difficulty swallowing Genitourinary: Reports: no symptoms Neurologic/Psychiatric: Reports: seizure Endocrine: Reports: no symptoms Hematologic/Lymphatic: Reports: no symptoms Allergies: Coded Allergies: No Known Allergies (Unverified , 11/12/16) All Systems: reviewed and negative except above Subjective trach changed. on the vent due to resp distress. low grade temps. all noted. Objective Last 24 Hour Vital Signs Date Time Temp Pulse Resp B/P Pulse Ox O2 Delivery O2 Flow Rate FiO2 11/18/16 06:50 72 19 100 11/18/16 06:05 99.5 11/18/16 05:11 83 26 100 11/18/16 04:00 99.5 82 24 66/ 99 Mechanical Ventilator 100 11/18/16 04:00 86 11/18/16 03:07 82 31 100 11/18/16 01:30 88 42 100 11/18/16 00:31 98.1 11/18/16 00:00 99.0 91 25 128/67 100 Mechanical Ventilator 100 11/18/16 00:00 92 11/17/16 23:46 93 26 100 11/17/16 20:00 98.1 86 22 141/77 91 11/17/16 20:00 82 11/17/16 19:00 89 Trach Collar 100 11/17/16 17:36 Trach Collar 70 11/17/16 16:00 98.9 75 18 91/ 94 Trach Collar 11/17/16 16:00 75 11/17/16 13:55 93 Trach Collar 100 11/17/16 13:53 Trach Collar 70 11/17/16 12:00 71 11/17/16 12:00 97.0 73 22 103/56 93 11/17/16 08:29 80 115/70 Intake and Output 11/17/16 11/18/16 19:00 07:00 Intake Total 1773.7 ml 1171.3 ml Output Total 150 ml 150 ml Balance 1623.7 ml 1021.3 ml Intake Oral 380 ml IV Total 1393.7 ml 1141.3 ml Other 30 ml Output Urine Total 150 ml 150 ml # Voids 2 1 Laboratory Tests 11/17/16 11:30: White Blood Count 11.1H, Red Blood Count 3.27L, Hemoglobin 9.6L, Hematocrit 29.1L, Mean Corpuscular Volume 89, Mean Corpuscular Hemoglobin 29.3, Mean Corpuscular Hemoglobin Concent 32.9, Red Cell Distribution Width 12.6, Platelet Count 320, Mean Platelet Volume 7.9, Neutrophils (%) (Auto) 83.8H, Lymphocytes ( %) (Auto) 4.3L, Monocytes (%) (Auto) 6.8, Eosinophils (%) (Auto) 3.6H, Basophils (%) (Auto) 1.5, Sodium Level 133L, Potassium Level 3.5, Chloride Level 93L, Carbon Dioxide Level 28, Anion Gap 12, Blood Urea Nitrogen 11, Creatinine 0.7, Estimat Glomerular Filtration Rate , Glucose Level 129H, Calcium Level 8.2L, Total Bilirubin 0.3, Aspartate Amino Transf (AST/SGOT) 29, Alanine Aminotransferase (ALT/SGPT) 27, Alkaline Phosphatase 180H, Total Protein 6.4L, Albumin 2.2L, Globulin 4.2, Albumin/Globulin Ratio 0.5L 11/17/16 21:39: Arterial Blood pH 7.394, Arterial Blood Partial Pressure CO2 43.9, Arterial Blood Partial Pressure O2 51.6L, Arterial Blood HCO3 26.2H, Arterial Blood Oxygen Saturation 85.3L, Arterial Blood Base Excess 1.1, Shay Test Positive 11/18/16 01:00: Arterial Blood pH 7.438, Arterial Blood Partial Pressure CO2 42.3, Arterial Blood Partial Pressure O2 66.4L, Arterial Blood HCO3 28.0H, Arterial Blood Oxygen Saturation 92.2, Arterial Blood Base Excess 3.4, Shay Test Positive 11/18/16 05:00: Vancomycin Level Trough 15.6H Height (Feet): 5 Height (Inches): 10.00 Weight (Pounds): 155 Objective General Appearance: WD/WN, alert, lethargic. facial swelling Neck: supple Cardiovascular: regular rhythm Respiratory/Chest: rhonchi - bilaterally Abdomen: normal bowel sounds, non tender, soft, no organomegaly Edema: no edema noted Arm (L), no edema noted Arm (R), no edema noted Leg (L), no edema noted Leg (R), no edema noted Pedal (L), no edema noted Pedal (R), no edema noted Generalized Neurologic: alert, disoriented REGGIE DE JESUS Nov 18, 2016 08:26
[2016-11-18 08:56] LABS: ABG ALLEN TEST POSITIVE; ABG PCO2 51.3 mmHg (35.0-45.0)
[2016-11-18] MEDS: Aspirin Baby 81mg GT SCH (10:07)
[2016-11-18] MEDS: Sotalol 80mg tab ORAL SCH (10:07)
[2016-11-18] MEDS: Multivitamin 5ml Liquid GT SCH (10:08)
[2016-11-18] MEDS: Phenytoin Susp 100mg/4ml GT SCH ×2 (10:09→17:52)
[2016-11-18] MEDS ORDERED: NS 275ml ONE (10:24)
[2016-11-18] MEDS ORDERED: Tubing IV Secondary IV ONE (10:24)
--- NOTE | 2016-11-18 10:52 | Infectious Diseases Prog Note ---
Assessment/Plan Assessment/Plan antibiotics : vancomycin iv, zosyn A 1. pseudomonas pneumonia 2. GT site cellulitis with MRSA s/p rx 3. 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 fever improving P 1. d/c vancomycin iv 2. d/c zosyn 3. start and continue cefepime 4 more days 2. will follow up cultures Subjective ROS Limited/Unobtainable: Yes Allergies: Coded Allergies: No Known Allergies (Unverified , 11/12/16) Objective Vital Signs Last 24 Hour Vital Signs Date Time Temp Pulse Resp B/P Pulse Ox O2 Delivery O2 Flow Rate FiO2 11/18/16 10:07 78 127/73 11/18/16 09:15 81 24 75 11/18/16 06:50 72 19 100 11/18/16 06:05 99.5 11/18/16 05:11 83 26 100 11/18/16 04:00 99.5 82 24 66/ 99 Mechanical Ventilator 100 11/18/16 04:00 86 11/18/16 03:07 82 31 100 11/18/16 01:30 88 42 100 11/18/16 00:31 98.1 11/18/16 00:00 99.0 91 25 128/67 100 Mechanical Ventilator 100 11/18/16 00:00 92 11/17/16 23:46 93 26 100 11/17/16 20:00 98.1 86 22 141/77 91 11/17/16 20:00 82 11/17/16 19:00 89 Trach Collar 100 11/17/16 17:36 Trach Collar 70 11/17/16 16:00 98.9 75 18 91/ 94 Trach Collar 11/17/16 16:00 75 11/17/16 13:55 93 Trach Collar 100 11/17/16 13:53 Trach Collar 70 11/17/16 12:00 71 11/17/16 12:00 97.0 73 22 103/56 93 Height (Feet): 5 Height (Inches): 10.00 Weight (Pounds): 155 HEENT: status post trach, other - facial erythema decreasing Respiratory/Chest: lungs clear Cardiovascular: normal rate, regular rhythm, no gallop/murmur Abdomen: soft, non tender, other - GT Extremities: other - + edema Laboratory Tests Test 11/17/16 11:30 3/16/17 21:39 11/18/16 01:00 11/18/16 05:00 White Blood Count 11.1 K/UL (4.8-10.8) H Red Blood Count 3.27 M/UL (4.70-6.10) L Hemoglobin 9.6 G/DL (14.2-18.0) L Hematocrit 29.1 % (42.0-52.0) L Mean Corpuscular Volume 89 FL (80-99) Mean Corpuscular Hemoglobin 29.3 PG (27.0-31.0) Mean Corpuscular Hemoglobin Concent 32.9 G/DL (32.0-36.0) Red Cell Distribution Width 12.6 % (11.6-14.8) Platelet Count 320 K/UL (150-450) Mean Platelet Volume 7.9 FL (6.5-10.1) Neutrophils (%) (Auto) 83.8 % (45.0-75.0) H Lymphocytes (%) (Auto) 4.3 % (20.0-45.0) L Monocytes (%) (Auto) 6.8 % (1.0-10.0) Eosinophils (%) (Auto) 3.6 % (0.0-3.0) H Basophils (%) (Auto) 1.5 % (0.0-2.0) Sodium Level 133 mEQ/L (135-145) L Potassium Level 3.5 mEQ/L (3.4-4.9) Chloride Level 93 mEQ/L (98-107) L Carbon Dioxide Level 28 mEQ/L (20-30) Anion Gap 12 (5-15) Blood Urea Nitrogen 11 mg/dL (7-23) Creatinine 0.7 mg/dL (0.7-1.2) Estimat Glomerular Filtration Rate mL/min (>60) Glucose Level 129 mg/dL (74-106) H Calcium Level 8.2 mg/dL (8.6-10.2) L Total Bilirubin 0.3 mg/dL (0.0-1.2) Aspartate Amino Transf (AST/SGOT) 29 U/L (5-40) Alanine Aminotransferase (ALT/SGPT) 27 U/L (3-41) Alkaline Phosphatase 180 U/L (40-129) H Total Protein 6.4 g/dL (6.6-8.7) L Albumin 2.2 g/dL (3.5-5.2) L Globulin 4.2 g/dL Albumin/Globulin Ratio 0.5 (1.0-2.7) L Arterial Blood pH 7.394 (7.350-7.450) 7.438 (7.350-7.450) Arterial Blood Partial Pressure CO2 43.9 mmHg (35.0-45.0) 42.3 mmHg (35.0-45.0) Arterial Blood Partial Pressure O2 51.6 mmHg (75.0-100.0) L 66.4 mmHg (75.0-100.0) L Arterial Blood HCO3 26.2 mmol/L (22.0-26.0) H 28.0 mmol/L (22.0-26.0) H Arterial Blood Oxygen Saturation 85.3 % (92.0-98.0) L 92.2 % (92.0-98.0) Arterial Blood Base Excess 1.1 3.4 Shay Test Positive Positive Vancomycin Level Trough 15.6 ug/mL (5.0-12.0) H Test 11/18/16 08:00 Arterial Blood pH 7.369 (7.350-7.450) Arterial Blood Partial Pressure CO2 51.3 mmHg (35.0-45.0) H Arterial Blood Partial Pressure O2 150.1 mmHg (75.0-100.0) H Arterial Blood HCO3 28.9 mmol/L (22.0-26.0) H Arterial Blood Oxygen Saturation 98.6 % (92.0-98.0) H Arterial Blood Base Excess 3.0 Shay Test Positive RANDI TREVIZO Nov 18, 2016 10:52
[2016-11-18] MEDS: Cefepime HCl 1 GM in D5W 55 ML IVPB SCH ×2 (11:22→21:00)
--- NOTE | 2016-11-18 11:27 | Pulmonology Progress Note ---
Assessment/Plan Assessment/Plan IMPRESSION: 1. Respiratory failure, tracheostomy. 2. History of squamous cell cancer. 3. Significant facial and skull deformity. 4. History of seizure. 5. History of hyperlipidemia. 6. History of dysrhythmias. 7. MRSA 8. s/p fall with scalp injury 9. chronic encephalopathy PLAN on vent head CT; none acute neuro evaluation chest xr with new infiltrate still on chemo and to undergo further chemo monitor neuro exam repeat cbc will d/w ID respiratory care oxygen monitor for change monitor for aspiration dc to SNF when stable impression, plan, and exam edited and reviewed in detail care discussed with RN Subjective ROS Limited/Unobtainable: Yes Allergies: Coded Allergies: No Known Allergies (Unverified , 11/12/16) Subjective on the ventilator aloc family aware Objective Last 24 Hour Vital Signs Date Time Temp Pulse Resp B/P Pulse Ox O2 Delivery O2 Flow Rate FiO2 11/18/16 10:07 78 127/73 11/18/16 09:15 81 24 75 11/18/16 08:00 97.5 78 29 127/73 100 Mechanical Ventilator 100 11/18/16 08:00 78 11/18/16 06:50 72 19 100 11/18/16 06:05 99.5 11/18/16 05:11 83 26 100 11/18/16 04:00 99.5 82 24 66/ 99 Mechanical Ventilator 100 11/18/16 04:00 86 11/18/16 03:07 82 31 100 11/18/16 01:30 88 42 100 11/18/16 00:31 98.1 11/18/16 00:00 99.0 91 25 128/67 100 Mechanical Ventilator 100 11/18/16 00:00 92 11/17/16 23:46 93 26 100 11/17/16 20:00 98.1 86 22 141/77 91 11/17/16 20:00 82 11/17/16 19:00 89 Trach Collar 100 11/17/16 17:36 Trach Collar 70 11/17/16 16:00 98.9 75 18 91/ 94 Trach Collar 11/17/16 16:00 75 11/17/16 13:55 93 Trach Collar 100 11/17/16 13:53 Trach Collar 70 11/17/16 12:00 71 11/17/16 12:00 97.0 73 22 103/56 93 Intake and Output 11/17/16 11/18/16 19:00 07:00 Intake Total 1773.7 ml 1171.3 ml Output Total 150 ml 150 ml Balance 1623.7 ml 1021.3 ml Intake Oral 380 ml IV Total 1393.7 ml 1141.3 ml Other 30 ml Output Urine Total 150 ml 150 ml # Voids 2 1 Objective GENERAL:: The patient is a chronically ill appearing male. reduced LOC HEENT: Fairly negative. The patient overall has significant facial/scalp deformities with chronic erythematous changes. Extraocular movements are grossly intact. scalp lesion covered NECK: Supple. Carotids 2+. Tracheostomy in midline. LUNGS: Coarse breath sounds. Moderate air entry. without change from prior CARDIAC: S1 and S2. RRR without murmurs, rubs, or gallops. ABDOMEN: Soft, nontender, and nondistended. EXTREMITIES: No cyanosis or clubbing. No edema. NEUROLOGIC: Grossly nonfocal. more withdrawn now on ventilator Laboratory Tests 11/17/16 11:30: White Blood Count 11.1H, Red Blood Count 3.27L, Hemoglobin 9.6L, Hematocrit 29.1L, Mean Corpuscular Volume 89, Mean Corpuscular Hemoglobin 29.3, Mean Corpuscular Hemoglobin Concent 32.9, Red Cell Distribution Width 12.6, Platelet Count 320, Mean Platelet Volume 7.9, Neutrophils (%) (Auto) 83.8H, Lymphocytes ( %) (Auto) 4.3L, Monocytes (%) (Auto) 6.8, Eosinophils (%) (Auto) 3.6H, Basophils (%) (Auto) 1.5, Sodium Level 133L, Potassium Level 3.5, Chloride Level 93L, Carbon Dioxide Level 28, Anion Gap 12, Blood Urea Nitrogen 11, Creatinine 0.7, Estimat Glomerular Filtration Rate , Glucose Level 129H, Calcium Level 8.2L, Total Bilirubin 0.3, Aspartate Amino Transf (AST/SGOT) 29, Alanine Aminotransferase (ALT/SGPT) 27, Alkaline Phosphatase 180H, Total Protein 6.4L, Albumin 2.2L, Globulin 4.2, Albumin/Globulin Ratio 0.5L 11/17/16 21:39: Arterial Blood pH 7.394, Arterial Blood Partial Pressure CO2 43.9, Arterial Blood Partial Pressure O2 51.6L, Arterial Blood HCO3 26.2H, Arterial Blood Oxygen Saturation 85.3L, Arterial Blood Base Excess 1.1, Shay Test Positive 11/18/16 01:00: Arterial Blood pH 7.438, Arterial Blood Partial Pressure CO2 42.3, Arterial Blood Partial Pressure O2 66.4L, Arterial Blood HCO3 28.0H, Arterial Blood Oxygen Saturation 92.2, Arterial Blood Base Excess 3.4, Shay Test Positive 11/18/16 05:00: Vancomycin Level Trough 15.6H 11/18/16 08:00: Arterial Blood pH 7.369, Arterial Blood Partial Pressure CO2 51.3H, Arterial Blood Partial Pressure O2 150.1H, Arterial Blood HCO3 28.9H, Arterial Blood Oxygen Saturation 98.6H, Arterial Blood Base Excess 3.0, Shay Test Positive Current Medications Medications (Trade) Dose Ordered Sig/Hernando Route PRN Reason Start Time Stop Time Status Last Admin Dose Admin Acetaminophen (Tylenol) 650 mg Q4H PRN NG Mild Pain/Temp > 100.5 11/16/16 01:00 12/16/16 00:59 11/18/16 05:35 Acetaminophen (Tylenol) 650 mg Q4H PRN ORAL Fever/Headache/Mild Pain 11/16/16 01:00 12/16/16 00:59 Acetaminophen/ Hydrocodone Bitart ([place] 5/325) 1 tab Q6H PRN GT Moderate Pain (Pain Scale 4-6) 11/16/16 03:00 11/23/16 02:59 11/17/16 23:32 Acetaminophen/ Hydrocodone Bitart ([place] 5/325) 2 tab Q6H PRN ORAL Severe Pain (Pain Scale 7-10) 11/16/16 03:00 11/23/16 02:59 11/16/16 14:14 Albuterol/ Ipratropium (DuoNeb 0.5-3(2.5)mg/3ml) 3 ml Q4H PRN HHN Shortness of Breath 11/16/16 01:00 11/21/16 00:59 Artificial Tears (Akwa-Tears) 1 drop Q4H PRN BOTH EYES DRY EYES 11/16/16 01:45 12/16/16 01:44 Aspirin (ASA) 81 mg DAILY GT 11/16/16 09:00 12/16/16 08:59 11/18/16 10:07 Atorvastatin Calcium (Lipitor) 5 mg BEDTIME ORAL 11/16/16 21:00 12/16/16 20:59 11/17/16 21:55 Bisacodyl (Dulcolax) 10 mg DAILY PRN RECTAL If MOM is ineffective 11/16/16 09:00 12/16/16 08:59 Cefepime HCl/ Dextrose (Maxipime/D5W) 55 ml @ 110 mls/hr EVERY 12 HOURS IVPB 11/18/16 12:00 11/25/16 11:59 Clonidine HCl (Catapres) 0.1 mg Q6H PRN GT SBP >160 11/16/16 00:00 12/16/16 00:00 Levothyroxine Sodium (Synthroid) 50 mcg DAILY GT 11/16/16 09:00 12/16/16 08:59 11/18/16 10:08 Lorazepam 1 mg 1 mg Q4H PRN IV For Anxiety 11/18/16 06:45 11/25/16 06:44 Magnesium Hydroxide (Mom) 30 ml DAILY PRN GT IF NO BM FOR 3 DAYS 11/16/16 09:00 12/16/16 08:59 Multivitamins (Multivitamin Hexavitamin) 5 ml DAILY GT 11/16/16 09:00 12/16/16 08:59 11/18/16 10:08 Ondansetron HCl (Zofran ODT) 4 mg Q6H PRN GT Nausea & Vomiting 11/16/16 03:00 12/16/16 02:59 Phenytoin (Dilantin) 400 mg BID GT 11/16/16 09:00 12/16/16 08:59 11/18/16 10:09 Polyethylene Glycol (Miralax) 17 gm DAILY PRN ORAL if MOM ineffective 11/16/16 09:00 12/16/16 08:59 Ranitidine HCl (Zantac) 150 mg DAILY ORAL 11/16/16 09:00 12/16/16 08:59 11/18/16 10:08 Sodium Chloride (Sodium Chloride 1000ml bag) 1,000 ml @ 100 mls/hr Q10H IV 11/15/16 23:30 12/15/16 23:29 11/18/16 11:09 Sodium Phosphate (Fleet's Sodium Phosl Enema) 133 ml DAILY PRN RECTAL If MOM & Dulcolax ineffective 11/16/16 09:00 12/16/16 08:59 Sotalol HCl (Betapace) 80 mg DAILY ORAL 11/16/16 09:00 12/16/16 08:59 11/18/16 10:07 DOLORES LARA Nov 18, 2016 11:27
--- NOTE | 2016-11-18 11:42 | Diagnostic Imaging Report ---
Indication: SOB Technique: One view of the chest Comparison: 11/17/2016 Findings: There is diffuse bilateral interstitial and alveolar infiltrates versus edema again demonstrated. There appears to be increasing pleural fluid on the left. Tracheostomy, left chest AICD again demonstrated. Left axillary surgical clips again demonstrated. Surgical clips are also seen in the neck Impression: Unchanged bilateral diffuse interstitial and alveolar infiltrates versus edema Increasing left-sided pleural fluid, over one day
[2016-11-18 12:00] VITALS: BP 119/75
[2016-11-18 16:00] VITALS: BP 131/59
[2016-11-18] MEDS ORDERED: Lidocaine 1% Plain 30 ml INJ ONE (16:30)
[2016-11-18] MEDS ORDERED: Heparin 2000 units/Ns 1000ml INJ ONE (16:30)
[2016-11-18] MEDS ORDERED: Sodium Bicarbonate 8.4% 50ml Inj IV ONE (16:30)
[2016-11-18 19:00] VITALS: BP 123/65
[2016-11-18] MEDS: LORazepam Inj 2mg/ml 1ml IV PRN (22:12)
[2016-11-19] VITALS: BP 99/47
[2016-11-19] MEDS: Norco 5mg/325mg tab ORAL PRN (00:11)
[2016-11-19 04:00] VITALS: BP 125/68
[2016-11-19] MEDS: Cefepime HCl 1 GM in D5W 55 ML IVPB SCH ×2 (07:56→21:13)
[2016-11-19 08:00] VITALS: BP 143/76
[2016-11-19] MEDS: Aspirin Baby 81mg GT SCH (09:00)
[2016-11-19] MEDS: Sotalol 80mg tab ORAL SCH (09:00)
[2016-11-19] MEDS: Multivitamin 5ml Liquid GT SCH (09:00)
[2016-11-19] MEDS: Phenytoin Susp 100mg/4ml GT SCH ×2 (09:00→17:34)
--- NOTE | 2016-11-19 09:17 | General Progress Note ---
Assessment/Plan Problem List: (1) Hospital acquired PNA ICD Codes: J18.9 - Pneumonia, unspecified organism SNOMED: 558830218 (2) Head and neck cancer ICD Codes: C76.0 - Malignant neoplasm of head, face and neck SNOMED: 438360225 (3) Respiratory insufficiency ICD Codes: R06.89 - Other abnormalities of breathing SNOMED: 108112079 (4) Encephalopathy acute ICD Codes: G93.40 - Encephalopathy, unspecified SNOMED: 0080987 (5) r/o sepsis Status: stable, progressing Assessment/Plan iv abx per ID neuro checks resp care gt feeds follow up cultures follow up labs trach care/vent monitor cxr sz rx per neuro Subjective ROS Limited/Unobtainable: Yes Constitutional: Reports: malaise, weakness HEENT: Reports: no symptoms Cardiovascular: Reports: no symptoms Respiratory: Reports: shortness of breath, sputum Gastrointestinal/Abdominal: Reports: difficulty swallowing Genitourinary: Reports: no symptoms Neurologic/Psychiatric: Reports: no symptoms Endocrine: Reports: no symptoms Hematologic/Lymphatic: Reports: anemia Allergies: Coded Allergies: No Known Allergies (Unverified , 11/12/16) All Systems: reviewed and negative except above Subjective on the vent. no change. awake. not very verbal. cxr with bilateral infiltrates and effusions Objective Last 24 Hour Vital Signs Date Time Temp Pulse Resp B/P Pulse Ox O2 Delivery O2 Flow Rate FiO2 11/19/16 07:07 77 34 100 11/19/16 05:25 75 35 100 11/19/16 04:00 98.0 72 32 125/68 100 Mechanical Ventilator 100 11/19/16 04:00 100 11/19/16 03:41 63 11/19/16 03:17 69 29 100 11/19/16 01:11 70 32 60 11/19/16 01:10 98.1 11/19/16 00:00 98.1 72 32 99/47 93 Mechanical Ventilator 60 11/19/16 00:00 76 11/18/16 23:30 84 38 60 11/18/16 21:30 81 33 60 11/18/16 20:43 72 11/18/16 19:13 72 19 60 11/18/16 19:00 99.0 72 20 123/65 95 Mechanical Ventilator 100 11/18/16 16:31 68 28 100 11/18/16 16:00 98.2 72 20 131/59 100 Mechanical Ventilator 100 11/18/16 16:00 82 11/18/16 14:57 73 28 100 11/18/16 13:38 76 28 100 11/18/16 12:00 80 11/18/16 12:00 96.8 80 24 119/75 98 Mechanical Ventilator 100 11/18/16 10:50 73 25 75 11/18/16 10:07 78 127/73 11/18/16 09:15 81 24 75 Intake and Output 11/18/16 11/19/16 19:00 07:00 Intake Total 300 ml 700 ml Output Total 200 ml Balance 100 ml 700 ml Intake Oral 240 ml Free Water 210 ml Tube Feeding 250 ml Other 300 ml Output Urine Total 200 ml # Voids 14 Height (Feet): 5 Height (Inches): 10.00 Weight (Pounds): 155 Objective General Appearance: WD/WN, alert, lethargic. facial swelling Neck: supple, trach site w/o bleeding Cardiovascular: regular rhythm Respiratory/Chest: rhonchi - bilaterally Abdomen: normal bowel sounds, non tender, soft, no organomegaly Edema: no edema noted Arm (L), no edema noted Arm (R), no edema noted Leg (L), no edema noted Leg (R), no edema noted Pedal (L), no edema noted Pedal (R), no edema noted Generalized Neurologic: alert, disoriented REGGIE DE JESUS Nov 19, 2016 09:17
--- NOTE | 2016-11-19 09:32 | Pulmonology Progress Note ---
Assessment/Plan Assessment/Plan IMPRESSION: 1. Respiratory failure, tracheostomy. 2. History of squamous cell cancer. 3. Significant facial and skull deformity. 4. History of seizure. 5. History of hyperlipidemia. 6. History of dysrhythmias. 7. MRSA 8. s/p fall with scalp injury 9. chronic encephalopathy 10. profound hypoxemia 11. tachypnea PLAN on vent; ABG noted head CT; none acute neuro evaluation chest xr with bilateral infiltrates ?ARDS monitor neuro exam; reduced repeat cbc noted will d/w ID respiratory care oxygen monitor for change monitor for aspiration dc to SNF when stable will update family; DNR confirmed impression, plan, and exam edited and reviewed in detail care discussed with RN Subjective Allergies: Coded Allergies: No Known Allergies (Unverified , 11/12/16) Subjective on the ventilator ALOC back on 100% family aware Objective Last 24 Hour Vital Signs Date Time Temp Pulse Resp B/P Pulse Ox O2 Delivery O2 Flow Rate FiO2 11/19/16 07:07 77 34 100 11/19/16 05:25 75 35 100 11/19/16 04:00 98.0 72 32 125/68 100 Mechanical Ventilator 100 11/19/16 04:00 100 11/19/16 03:41 63 11/19/16 03:17 69 29 100 11/19/16 01:11 70 32 60 11/19/16 01:10 98.1 11/19/16 00:00 98.1 72 32 99/47 93 Mechanical Ventilator 60 11/19/16 00:00 76 11/18/16 23:30 84 38 60 11/18/16 21:30 81 33 60 11/18/16 20:43 72 11/18/16 19:13 72 19 60 11/18/16 19:00 99.0 72 20 123/65 95 Mechanical Ventilator 100 11/18/16 16:31 68 28 100 11/18/16 16:00 98.2 72 20 131/59 100 Mechanical Ventilator 100 11/18/16 16:00 82 11/18/16 14:57 73 28 100 11/18/16 13:38 76 28 100 11/18/16 12:00 80 11/18/16 12:00 96.8 80 24 119/75 98 Mechanical Ventilator 100 11/18/16 10:50 73 25 75 11/18/16 10:07 78 127/73 Intake and Output 11/18/16 11/19/16 19:00 07:00 Intake Total 300 ml 700 ml Output Total 200 ml Balance 100 ml 700 ml Intake Oral 240 ml Free Water 210 ml Tube Feeding 250 ml Other 300 ml Output Urine Total 200 ml # Voids 14 Objective GENERAL:: The patient is a chronically ill appearing male. reduced LOC HEENT: Fairly negative. The patient overall has significant facial/scalp deformities with chronic erythematous changes. NECK: Supple. Carotids 2+. Tracheostomy in midline. LUNGS: Coarse breath sounds. Moderate air entry. without change from prior CARDIAC: S1 and S2. RRR without murmurs, rubs, or gallops. ABDOMEN: Soft, nontender, and nondistended. EXTREMITIES: No cyanosis or clubbing. No edema. NEUROLOGIC: Grossly nonfocal. more withdrawn now on ventilator Current Medications Medications (Trade) Dose Ordered Sig/[place] Route PRN Reason Start Time Stop Time Status Last Admin Dose Admin Acetaminophen (Tylenol) 650 mg Q4H PRN NG Mild Pain/Temp > 100.5 11/16/16 01:00 12/16/16 00:59 11/18/16 05:35 Acetaminophen (Tylenol) 650 mg Q4H PRN ORAL Fever/Headache/Mild Pain 11/16/16 01:00 12/16/16 00:59 Acetaminophen/ Hydrocodone Bitart ([place] 5/325) 1 tab Q6H PRN GT Moderate Pain (Pain Scale 4-6) 11/16/16 03:00 11/23/16 02:59 11/17/16 23:32 Acetaminophen/ Hydrocodone Bitart ([place] 5/325) 2 tab Q6H PRN ORAL Severe Pain (Pain Scale 7-10) 11/16/16 03:00 11/23/16 02:59 11/19/16 00:11 Albuterol/ Ipratropium (DuoNeb 0.5-3(2.5)mg/3ml) 3 ml Q4H PRN HHN Shortness of Breath 11/16/16 01:00 11/21/16 00:59 Artificial Tears ([place]wa-Tears) 1 drop Q4H PRN BOTH EYES DRY EYES 11/16/16 01:45 12/16/16 01:44 Aspirin (ASA) 81 mg DAILY GT 11/16/16 09:00 12/16/16 08:59 11/18/16 10:07 Atorvastatin Calcium (Lipitor) 5 mg BEDTIME ORAL 11/16/16 21:00 12/16/16 20:59 11/18/16 22:00 Bisacodyl (Dulcolax) 10 mg DAILY PRN RECTAL If MOM is ineffective 11/16/16 09:00 12/16/16 08:59 Cefepime HCl/ Dextrose (Maxipime/D5W) 55 ml @ 110 mls/hr EVERY 12 HOURS IVPB 11/18/16 12:00 11/25/16 11:59 11/18/16 11:22 Clonidine HCl (Catapres) 0.1 mg Q6H PRN GT SBP >160 11/16/16 00:00 12/16/16 00:00 Levothyroxine Sodium (Synthroid) 50 mcg DAILY GT 11/16/16 09:00 12/16/16 08:59 11/18/16 10:08 Lorazepam 1 mg 1 mg Q4H PRN IV For Anxiety 11/18/16 06:45 11/25/16 06:44 11/18/16 22:12 Magnesium Hydroxide (Mom) 30 ml DAILY PRN GT IF NO BM FOR 3 DAYS 11/16/16 09:00 12/16/16 08:59 Multivitamins (Multivitamin Hexavitamin) 5 ml DAILY GT 11/16/16 09:00 12/16/16 08:59 11/18/16 10:08 Ondansetron HCl (Zofran ODT) 4 mg Q6H PRN GT Nausea & Vomiting 11/16/16 03:00 12/16/16 02:59 Phenytoin (Dilantin) 400 mg BID GT 11/16/16 09:00 12/16/16 08:59 11/18/16 17:52 Polyethylene Glycol (Miralax) 17 gm DAILY PRN ORAL if MOM ineffective 11/16/16 09:00 12/16/16 08:59 Ranitidine HCl (Zantac) 150 mg DAILY ORAL 11/16/16 09:00 12/16/16 08:59 11/18/16 10:08 Sodium Chloride (Sodium Chloride 1000ml bag) 1,000 ml @ 100 mls/hr Q10H IV 11/15/16 23:30 12/15/16 23:29 11/18/16 11:09 Sodium Phosphate (Fleet's Sodium Phosl Enema) 133 ml DAILY PRN RECTAL If MOM & Dulcolax ineffective 11/16/16 09:00 12/16/16 08:59 Sotalol HCl (Betapace) 80 mg DAILY ORAL 11/16/16 09:00 12/16/16 08:59 11/18/16 10:07 DOLORES LARA Nov 19, 2016 09:32
[2016-11-19 12:00] VITALS: BP 139/62
[2016-11-19] MEDS: LORazepam Inj 2mg/ml 1ml IV PRN (12:13)
[2016-11-19 16:00] VITALS: BP 134/60
[2016-11-19 20:00] VITALS: BP 110/62
--- NOTE | 2016-11-19 23:02 | Emergency Room Report ---
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 Patient had previously a trach changed several days ago. Patient was noted to have a decreased tidal volume as well as intermittent leak. Patient was noted to have previously had a Bivona trach. The tracheostomy was changed by me with sterile technique to a 7 Portex tracheostomy. Procedure chest x-ray showed improved aeration as well as increased tidal volume. The patient tolerated well without any active bleeding post procedure. Last Vital Signs Date Time Temp Pulse Resp B/P Pulse Ox O2 Delivery O2 Flow Rate FiO2 11/19/16 22:46 79 28 100 11/19/16 16:00 98.7 134/60 92 Mechanical Ventilator 100.0 Referrals: DOLORES LARA (PCP) Steve Chambers Nov 19, 2016 23:02
[2016-11-20] VITALS: BP 117/65
[2016-11-20] MEDS: Acetaminophen 650mg/20.3ml NG PRN (00:56)
[2016-11-20 04:00] VITALS: BP 121/60
[2016-11-20 08:00] VITALS: BP 110/54
--- NOTE | 2016-11-20 08:42 | General Progress Note ---
Assessment/Plan Problem List: (1) Hospital acquired PNA ICD Codes: J18.9 - Pneumonia, unspecified organism SNOMED: 843860950 (2) Head and neck cancer ICD Codes: C76.0 - Malignant neoplasm of head, face and neck SNOMED: 009939755 (3) Respiratory insufficiency ICD Codes: R06.89 - Other abnormalities of breathing SNOMED: 633117565 (4) Encephalopathy acute ICD Codes: G93.40 - Encephalopathy, unspecified SNOMED: 4477868 (5) r/o sepsis Status: stable, progressing Assessment/Plan iv abx per ID x 4 more days neuro checks/fall precautions resp care trach care gt feeds follow up cultures monitor cxr sz rx per neuro vent support Subjective ROS Limited/Unobtainable: No Constitutional: Reports: malaise, weakness HEENT: Reports: no symptoms Cardiovascular: Reports: no symptoms Respiratory: Reports: shortness of breath, sputum Gastrointestinal/Abdominal: Reports: difficulty swallowing Genitourinary: Reports: no symptoms Neurologic/Psychiatric: Reports: no symptoms Endocrine: Reports: no symptoms Hematologic/Lymphatic: Reports: anemia Allergies: Coded Allergies: No Known Allergies (Unverified , 11/12/16) All Systems: reviewed and negative except above Subjective s/p urgent trach change due to poor tidal volumes. better after larger trach placed. currently resting. no distress Objective Last 24 Hour Vital Signs Date Time Temp Pulse Resp B/P Pulse Ox O2 Delivery O2 Flow Rate FiO2 11/20/16 06:56 76 14 100 11/20/16 04:51 72 14 100 11/20/16 04:00 100 11/20/16 04:00 69 11/20/16 04:00 98.3 70 36 121/60 97 Mechanical Ventilator 100.0 100 11/20/16 02:56 69 14 100 11/20/16 01:26 98.2 11/20/16 01:26 98.2 11/20/16 00:39 78 20 100 11/20/16 00:00 100 11/20/16 00:00 100 11/20/16 00:00 100.5 79 40 117/65 97 Mechanical Ventilator 100.0 100 11/20/16 00:00 77 11/19/16 22:46 79 28 100 11/19/16 21:37 77 31 100 11/19/16 20:30 100 11/19/16 20:00 100 11/19/16 20:00 97.3 75 40 110/62 96 Mechanical Ventilator 100.0 100 11/19/16 20:00 74 11/19/16 19:00 72 48 100 11/19/16 17:06 79 38 100 11/19/16 16:00 82 11/19/16 16:00 98.7 86 40 134/60 92 Mechanical Ventilator 100.0 100 11/19/16 15:00 81 41 100 11/19/16 12:54 82 44 100 11/19/16 12:00 98.4 84 40 139/62 86 Mechanical Ventilator 100 11/19/16 12:00 79 11/19/16 10:43 76 36 100 11/19/16 10:13 88 35 93 Mechanical Ventilator 11/19/16 10:02 82 36 92 Mechanical Ventilator 100 11/19/16 09:02 79 36 100 11/19/16 09:00 80 143/76 Intake and Output 11/19/16 11/20/16 19:00 07:00 Intake Total 2955 ml 1156 ml Balance 2955 ml 1156 ml Free Water 155 ml IV Total 1900 ml 406 ml Tube Feeding 900 ml 750 ml # Voids 5 4 Height (Feet): 5 Height (Inches): 10.00 Weight (Pounds): 155 Objective General Appearance: WD/WN, alert, lethargic. facial swelling Neck: supple, trach site w/o bleeding Cardiovascular: regular rhythm Respiratory/Chest: rhonchi - bilaterally Abdomen: normal bowel sounds, non tender, soft, no organomegaly Edema: no edema noted Arm (L), no edema noted Arm (R), no edema noted Leg (L), no edema noted Leg (R), no edema noted Pedal (L), no edema noted Pedal (R), no edema noted Generalized Neurologic: alert, disoriented REGGIE DE JESUS Nov 20, 2016 08:42
--- NOTE | 2016-11-20 08:55 | Pulmonology Progress Note ---
Assessment/Plan Assessment/Plan IMPRESSION: 1. Respiratory failure, tracheostomy. 2. History of squamous cell cancer. 3. Significant facial and skull deformity. 4. History of seizure. 5. History of hyperlipidemia. 6. History of dysrhythmias. 7. MRSA 8. s/p fall with scalp injury 9. chronic encephalopathy 10. profound hypoxemia 11. tachypnea PLAN on vent; ABG noted; will repeat head CT; none acute neuro evaluation noted chest xr with bilateral infiltrates ?ARDS monitor neuro exam; reduced repeat cbc noted ID evaluation respiratory care oxygen monitor for change monitor for aspiration dc to SNF when stable updated family; DNR confirmed likely recovery is unlikely impression, plan, and exam edited and reviewed in detail care discussed with RN Subjective Allergies: Coded Allergies: No Known Allergies (Unverified , 11/12/16) Subjective on the ventilator ALOC had to change trach due to busted balloon Objective Last 24 Hour Vital Signs Date Time Temp Pulse Resp B/P Pulse Ox O2 Delivery O2 Flow Rate FiO2 11/20/16 06:56 76 14 100 11/20/16 04:51 72 14 100 11/20/16 04:00 100 11/20/16 04:00 69 11/20/16 04:00 98.3 70 36 121/60 97 Mechanical Ventilator 100.0 100 11/20/16 02:56 69 14 100 11/20/16 01:26 98.2 11/20/16 01:26 98.2 11/20/16 00:39 78 20 100 11/20/16 00:00 100 11/20/16 00:00 100 11/20/16 00:00 100.5 79 40 117/65 97 Mechanical Ventilator 100.0 100 11/20/16 00:00 77 11/19/16 22:46 79 28 100 11/19/16 21:37 77 31 100 11/19/16 20:30 100 11/19/16 20:00 100 11/19/16 20:00 97.3 75 40 110/62 96 Mechanical Ventilator 100.0 100 11/19/16 20:00 74 11/19/16 19:00 72 48 100 11/19/16 17:06 79 38 100 11/19/16 16:00 82 11/19/16 16:00 98.7 86 40 134/60 92 Mechanical Ventilator 100.0 100 11/19/16 15:00 81 41 100 11/19/16 12:54 82 44 100 11/19/16 12:00 98.4 84 40 139/62 86 Mechanical Ventilator 100 11/19/16 12:00 79 11/19/16 10:43 76 36 100 11/19/16 10:13 88 35 93 Mechanical Ventilator 11/19/16 10:02 82 36 92 Mechanical Ventilator 100 11/19/16 09:02 79 36 100 11/19/16 09:00 80 143/76 Intake and Output 11/19/16 11/20/16 19:00 07:00 Intake Total 2955 ml 1156 ml Balance 2955 ml 1156 ml Free Water 155 ml IV Total 1900 ml 406 ml Tube Feeding 900 ml 750 ml # Voids 5 4 Objective GENERAL:: The patient is a chronically ill appearing male. reduced LOC HEENT: Fairly negative. The patient overall has significant facial/scalp deformities with chronic erythematous changes. NECK: Supple. Carotids 2+. Tracheostomy in midline. LUNGS: Coarse breath sounds. Moderate air entry. without change from prior CARDIAC: S1 and S2. RRR without murmurs, rubs, or gallops. ABDOMEN: Soft, nontender, and nondistended. EXTREMITIES: No cyanosis or clubbing. No edema. NEUROLOGIC: Grossly nonfocal. more withdrawn now on ventilator and volumes adequate Current Medications Medications (Trade) Dose Ordered Sig/[place] Route PRN Reason Start Time Stop Time Status Last Admin Dose Admin Acetaminophen (Tylenol) 650 mg Q4H PRN NG Mild Pain/Temp > 100.5 11/16/16 01:00 12/16/16 00:59 11/20/16 00:56 Acetaminophen (Tylenol) 650 mg Q4H PRN ORAL Fever/Headache/Mild Pain 11/16/16 01:00 12/16/16 00:59 Acetaminophen/ Hydrocodone Bitart ([place] 5/325) 1 tab Q6H PRN GT Moderate Pain (Pain Scale 4-6) 11/16/16 03:00 11/23/16 02:59 11/17/16 23:32 Acetaminophen/ Hydrocodone Bitart ([place] 5/325) 2 tab Q6H PRN ORAL Severe Pain (Pain Scale 7-10) 11/16/16 03:00 11/23/16 02:59 11/19/16 00:11 Albuterol/ Ipratropium (DuoNeb 0.5-3(2.5)mg/3ml) 3 ml Q4H PRN HHN Shortness of Breath 11/16/16 01:00 11/21/16 00:59 11/19/16 10:02 Artificial Tears (Akwa-Tears) 1 drop Q4H PRN BOTH EYES DRY EYES 11/16/16 01:45 12/16/16 01:44 Aspirin (ASA) 81 mg DAILY GT 11/16/16 09:00 12/16/16 08:59 11/19/16 09:00 Atorvastatin Calcium (Lipitor) 5 mg BEDTIME ORAL 11/16/16 21:00 12/16/16 20:59 11/19/16 21:14 Bisacodyl (Dulcolax) 10 mg DAILY PRN RECTAL If MOM is ineffective 11/16/16 09:00 12/16/16 08:59 Cefepime HCl/ Dextrose (Maxipime/D5W) 55 ml @ 110 mls/hr EVERY 12 HOURS IVPB 11/18/16 12:00 11/25/16 11:59 11/19/16 21:13 Clonidine HCl (Catapres) 0.1 mg Q6H PRN GT SBP >160 11/16/16 00:00 12/16/16 00:00 Levothyroxine Sodium (Synthroid) 50 mcg DAILY GT 11/16/16 09:00 12/16/16 08:59 11/19/16 09:42 Lorazepam 1 mg 1 mg Q4H PRN IV For Anxiety 11/18/16 06:45 11/25/16 06:44 11/19/16 12:13 Magnesium Hydroxide (Mom) 30 ml DAILY PRN GT IF NO BM FOR 3 DAYS 11/16/16 09:00 12/16/16 08:59 Multivitamins (Multivitamin Hexavitamin) 5 ml DAILY GT 11/16/16 09:00 12/16/16 08:59 11/19/16 09:00 Ondansetron HCl (Zofran ODT) 4 mg Q6H PRN GT Nausea & Vomiting 11/16/16 03:00 12/16/16 02:59 Phenytoin (Dilantin) 400 mg BID GT 11/16/16 09:00 12/16/16 08:59 11/19/16 17:34 Polyethylene Glycol (Miralax) 17 gm DAILY PRN ORAL if MOM ineffective 11/16/16 09:00 12/16/16 08:59 Ranitidine HCl (Zantac) 150 mg DAILY ORAL 11/16/16 09:00 12/16/16 08:59 11/19/16 09:48 Sodium Chloride (Sodium Chloride 1000ml bag) 1,000 ml @ 100 mls/hr Q10H IV 11/15/16 23:30 12/15/16 23:29 11/20/16 01:54 Sodium Phosphate (Fleet's Sodium Phosl Enema) 133 ml DAILY PRN RECTAL If MOM & Dulcolax ineffective 11/16/16 09:00 12/16/16 08:59 Sotalol HCl (Betapace) 80 mg DAILY ORAL 11/16/16 09:00 12/16/16 08:59 11/19/16 09:00 DOLORES LARA Nov 20, 2016 08:55
[2016-11-20] MEDS: Phenytoin Susp 100mg/4ml GT SCH ×2 (09:00→18:40)
[2016-11-20] MEDS: Multivitamin 5ml Liquid GT SCH (09:00)
[2016-11-20 09:13] LABS: ABG ALLEN TEST POSITIVE; ABG BASE EXCESS 2.4; ABG PCO2 31.7 mmHg (35.0-45.0)
[2016-11-20] MEDS: Norco 5mg/325mg tab GT PRN (11:04)
[2016-11-20] MEDS: Sotalol 80mg tab ORAL SCH (11:05)
[2016-11-20] MEDS: Aspirin Baby 81mg GT SCH (11:22)
[2016-11-20] MEDS: Cefepime HCl 1 GM in D5W 55 ML IVPB SCH ×2 (11:24→21:23)
--- NOTE | 2016-11-20 11:47 | Infectious Diseases Prog Note ---
Assessment/Plan Assessment/Plan A: 1. pneumonia with pseudomonas 2. GT site cellulitis with staph aureus 3. 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 fever P 1. continue Cefepime X 2 days 2. DNR status, poor prognosis Subjective ROS Limited/Unobtainable: Yes Constitutional: Reports: fever, other - T kzr=[id number] Allergies: Coded Allergies: No Known Allergies (Unverified , 11/12/16) Objective Vital Signs Last 24 Hour Vital Signs Date Time Temp Pulse Resp B/P Pulse Ox O2 Delivery O2 Flow Rate FiO2 11/20/16 11:05 77 110/54 11/20/16 10:42 78 16 100 11/20/16 08:56 77 14 100 11/20/16 08:00 99.5 23 110/54 76 Mechanical Ventilator 100.0 100 11/20/16 08:00 74 11/20/16 06:56 76 14 100 11/20/16 04:51 72 14 100 11/20/16 04:00 100 11/20/16 04:00 69 11/20/16 04:00 98.3 70 36 121/60 97 Mechanical Ventilator 100.0 100 11/20/16 02:56 69 14 100 11/20/16 01:26 98.2 11/20/16 01:26 98.2 11/20/16 00:39 78 20 100 11/20/16 00:00 100 11/20/16 00:00 100 11/20/16 00:00 100.5 79 40 117/65 97 Mechanical Ventilator 100.0 100 11/20/16 00:00 77 11/19/16 22:46 79 28 100 11/19/16 21:37 77 31 100 11/19/16 20:30 100 11/19/16 20:00 100 11/19/16 20:00 97.3 75 40 110/62 96 Mechanical Ventilator 100.0 100 11/19/16 20:00 74 11/19/16 19:00 72 48 100 11/19/16 17:06 79 38 100 11/19/16 16:00 82 11/19/16 16:00 98.7 86 40 134/60 92 Mechanical Ventilator 100.0 100 11/19/16 15:00 81 41 100 11/19/16 12:54 82 44 100 11/19/16 12:00 98.4 84 40 139/62 86 Mechanical Ventilator 100 11/19/16 12:00 79 Height (Feet): 5 Height (Inches): 10.00 Weight (Pounds): 155 HEENT: status post trach, other - facial swelling, mass Respiratory/Chest: decreased breath sounds, other - on ventilator, scar of surgery in left posterior chest Abdomen: soft, non tender, other - GT feeding Neurologic/Psychiatric: unresponsiveness Laboratory Tests Test 11/20/16 08:58 Arterial Blood pH 7.517 (7.350-7.450) Arterial Blood Partial Pressure CO2 31.7 mmHg (35.0-45.0) L Arterial Blood Partial Pressure O2 77.8 mmHg (75.0-100.0) Arterial Blood HCO3 25.1 mmol/L (22.0-26.0) Arterial Blood Oxygen Saturation 95.0 % (92.0-98.0) Arterial Blood Base Excess 2.4 Shay Test Positive Current Medications Medications (Trade) Dose Ordered Sig/[place] Route PRN Reason Start Time Stop Time Status Last Admin Dose Admin Acetaminophen (Tylenol) 650 mg Q4H PRN NG Mild Pain/Temp > 100.5 11/16/16 01:00 12/16/16 00:59 11/20/16 00:56 Acetaminophen (Tylenol) 650 mg Q4H PRN ORAL Fever/Headache/Mild Pain 11/16/16 01:00 12/16/16 00:59 Acetaminophen/ Hydrocodone Bitart ([place] 5/325) 1 tab Q6H PRN GT Moderate Pain (Pain Scale 4-6) 11/16/16 03:00 11/23/16 02:59 11/20/16 11:04 Acetaminophen/ Hydrocodone Bitart ([place] 5/325) 2 tab Q6H PRN ORAL Severe Pain (Pain Scale 7-10) 11/16/16 03:00 11/23/16 02:59 11/19/16 00:11 Albuterol/ Ipratropium (DuoNeb 0.5-3(2.5)mg/3ml) 3 ml Q4H PRN HHN Shortness of Breath 11/16/16 01:00 11/21/16 00:59 11/19/16 10:02 Artificial Tears (Akwa-Tears) 1 drop Q4H PRN BOTH EYES DRY EYES 11/16/16 01:45 12/16/16 01:44 Aspirin (ASA) 81 mg DAILY GT 11/16/16 09:00 12/16/16 08:59 11/20/16 11:22 Atorvastatin Calcium (Lipitor) 5 mg BEDTIME ORAL 11/16/16 21:00 12/16/16 20:59 11/19/16 21:14 Bisacodyl (Dulcolax) 10 mg DAILY PRN RECTAL If MOM is ineffective 11/16/16 09:00 12/16/16 08:59 Cefepime HCl/ Dextrose (Maxipime/D5W) 55 ml @ 110 mls/hr EVERY 12 HOURS IVPB 11/18/16 12:00 11/25/16 11:59 11/20/16 11:24 Clonidine HCl (Catapres) 0.1 mg Q6H PRN GT SBP >160 11/16/16 00:00 12/16/16 00:00 Levothyroxine Sodium (Synthroid) 50 mcg DAILY GT 11/16/16 09:00 12/16/16 08:59 11/20/16 11:05 Lorazepam 1 mg 1 mg Q4H PRN IV For Anxiety 11/18/16 06:45 11/25/16 06:44 11/19/16 12:13 Magnesium Hydroxide (Mom) 30 ml DAILY PRN GT IF NO BM FOR 3 DAYS 11/16/16 09:00 12/16/16 08:59 Multivitamins (Multivitamin Hexavitamin) 5 ml DAILY GT 11/16/16 09:00 12/16/16 08:59 11/20/16 09:00 Ondansetron HCl (Zofran ODT) 4 mg Q6H PRN GT Nausea & Vomiting 11/16/16 03:00 12/16/16 02:59 Phenytoin (Dilantin) 400 mg BID GT 11/16/16 09:00 12/16/16 08:59 11/20/16 09:00 Polyethylene Glycol (Miralax) 17 gm DAILY PRN ORAL if MOM ineffective 11/16/16 09:00 12/16/16 08:59 Ranitidine HCl (Zantac) 150 mg DAILY ORAL 11/16/16 09:00 12/16/16 08:59 11/20/16 11:05 Sodium Chloride (Sodium Chloride 1000ml bag) 1,000 ml @ 100 mls/hr Q10H IV 11/15/16 23:30 12/15/16 23:29 11/20/16 01:54 Sodium Phosphate (Fleet's Sodium Phosl Enema) 133 ml DAILY PRN RECTAL If MOM & Dulcolax ineffective 11/16/16 09:00 12/16/16 08:59 Sotalol HCl (Betapace) 80 mg DAILY ORAL 11/16/16 09:00 12/16/16 08:59 11/20/16 11:05 MIGUEL A BENTON Nov 20, 2016 11:47
[2016-11-20 12:00] VITALS: BP 116/51
[2016-11-20] MEDS ORDERED: Sterile Water Irrig 1000ml IRRIG ONE (15:16)
[2016-11-20] MEDS ORDERED: Tubing IV Secondary IV ONE (15:16)
[2016-11-20 16:00] VITALS: BP 107/63
[2016-11-20 20:00] VITALS: BP 118/93
[2016-11-21] VITALS: BP 126/63
[2016-11-21] MEDS: LORazepam Inj 2mg/ml 1ml IV PRN (00:03)
[2016-11-21] MEDS: Acetaminophen 650mg/20.3ml NG PRN ×2 (02:28→06:46)
[2016-11-21 04:00] VITALS: BP 106/54
[2016-11-21 08:00] VITALS: BP 102/62
--- NOTE | 2016-11-21 08:29 | Pulmonology Progress Note ---
Assessment/Plan Assessment/Plan IMPRESSION: 1. Respiratory failure, tracheostomy. 2. History of squamous cell cancer. 3. Significant facial and skull deformity. 4. History of seizure. 5. History of hyperlipidemia. 6. History of dysrhythmias. 7. MRSA 8. s/p fall with scalp injury 9. chronic encephalopathy 10. profound hypoxemia 11. tachypnea PLAN on vent; and monitor neuro evaluation noted chest xr with bilateral infiltrates and will repeat monitor neuro exam; reduced LOC repeat cbc noted ID evaluation respiratory care oxygen monitor for change monitor for aspiration dc to SNF not stable yet updated family; DNR confirmed likely recovery is unlikely impression, plan, and exam edited and reviewed in detail care discussed with RN Subjective ROS Limited/Unobtainable: Yes Allergies: Coded Allergies: No Known Allergies (Unverified , 11/12/16) Subjective on the ventilator ALOC adequate volumes at present Objective Last 24 Hour Vital Signs Date Time Temp Pulse Resp B/P Pulse Ox O2 Delivery O2 Flow Rate FiO2 11/21/16 08:09 81 11/21/16 08:09 100 11/21/16 07:51 73 20 100 11/21/16 05:17 79 18 100 11/21/16 04:00 101.7 74 17 106/54 96 Mechanical Ventilator 100 11/21/16 04:00 86 11/21/16 04:00 100 11/21/16 03:52 87 20 100 11/21/16 02:58 101.7 11/21/16 01:35 88 33 100 11/21/16 00:00 99.9 88 15 126/63 96 Mechanical Ventilator 100 11/21/16 00:00 87 11/20/16 23:45 96 39 100 11/20/16 21:30 85 36 100 11/20/16 20:00 100.4 92 16 118/93 98 Mechanical Ventilator 100 11/20/16 20:00 92 11/20/16 19:12 87 36 100 11/20/16 16:58 68 16 100 11/20/16 16:00 67 11/20/16 16:00 96.4 67 20 107/63 98 Mechanical Ventilator 100 11/20/16 14:52 67 16 100 11/20/16 12:41 75 16 100 11/20/16 12:03 97.5 11/20/16 12:00 74 11/20/16 12:00 97.5 76 21 116/51 100 Mechanical Ventilator 100 11/20/16 11:05 77 110/54 11/20/16 10:42 78 16 100 11/20/16 08:56 77 14 100 Intake and Output 11/20/16 11/21/16 19:00 07:00 Intake Total 2360 ml 1455 ml Balance 2360 ml 1455 ml Free Water 100 ml IV Total 1210 ml 955 ml Tube Feeding 1050 ml 500 ml Objective GENERAL:: The patient is a chronically ill appearing male. reduced LOC with some agitation HEENT: Fairly negative. The patient overall has significant facial/scalp deformities with chronic erythematous changes. NECK: Supple. Carotids 2+. Tracheostomy in midline. LUNGS: Coarse breath sounds. Moderate air entry. without change from prior CARDIAC: S1 and S2. RRR without murmurs, rubs, or gallops. ABDOMEN: Soft, nontender, and nondistended. no HSM; gt EXTREMITIES: No cyanosis or clubbing. No edema. NEUROLOGIC: Grossly nonfocal. more withdrawn now on ventilator and volumes adequate Laboratory Tests 11/20/16 08:58: Arterial Blood pH 7.517H, Arterial Blood Partial Pressure CO2 31.7L, Arterial Blood Partial Pressure O2 77.8, Arterial Blood HCO3 25.1, Arterial Blood Oxygen Saturation 95.0, Arterial Blood Base Excess 2.4, Shay Test Positive Current Medications Medications (Trade) Dose Ordered Sig/[place] Route PRN Reason Start Time Stop Time Status Last Admin Dose Admin Acetaminophen (Tylenol) 650 mg Q4H PRN NG Mild Pain/Temp > 100.5 11/16/16 01:00 12/16/16 00:59 11/21/16 06:46 Acetaminophen (Tylenol) 650 mg Q4H PRN ORAL Fever/Headache/Mild Pain 11/16/16 01:00 12/16/16 00:59 Acetaminophen/ Hydrocodone Bitart ([place] 5/325) 1 tab Q6H PRN GT Moderate Pain (Pain Scale 4-6) 11/16/16 03:00 11/23/16 02:59 11/20/16 11:04 Acetaminophen/ Hydrocodone Bitart ([place] 5/325) 2 tab Q6H PRN ORAL Severe Pain (Pain Scale 7-10) 11/16/16 03:00 11/23/16 02:59 11/19/16 00:11 Artificial Tears ([place]wa-Tears) 1 drop Q4H PRN BOTH EYES DRY EYES 11/16/16 01:45 12/16/16 01:44 Aspirin (ASA) 81 mg DAILY GT 11/16/16 09:00 12/16/16 08:59 11/20/16 11:22 Atorvastatin Calcium (Lipitor) 5 mg BEDTIME ORAL 11/16/16 21:00 12/16/16 20:59 11/20/16 21:23 Bisacodyl (Dulcolax) 10 mg DAILY PRN RECTAL If MOM is ineffective 11/16/16 09:00 12/16/16 08:59 Cefepime HCl/ Dextrose (Maxipime/D5W) 55 ml @ 110 mls/hr EVERY 12 HOURS IVPB 11/18/16 12:00 11/25/16 11:59 11/20/16 21:23 Clonidine HCl (Catapres) 0.1 mg Q6H PRN GT SBP >160 11/16/16 00:00 12/16/16 00:00 Levothyroxine Sodium (Synthroid) 50 mcg DAILY GT 11/16/16 09:00 12/16/16 08:59 11/20/16 11:05 Lorazepam 1 mg 1 mg Q4H PRN IV For Anxiety 11/18/16 06:45 11/25/16 06:44 11/21/16 00:03 Magnesium Hydroxide (Mom) 30 ml DAILY PRN GT IF NO BM FOR 3 DAYS 11/16/16 09:00 12/16/16 08:59 Multivitamins (Multivitamin Hexavitamin) 5 ml DAILY GT 11/16/16 09:00 12/16/16 08:59 11/20/16 09:00 Ondansetron HCl (Zofran ODT) 4 mg Q6H PRN GT Nausea & Vomiting 11/16/16 03:00 12/16/16 02:59 Phenytoin (Dilantin) 400 mg BID GT 11/16/16 09:00 12/16/16 08:59 11/20/16 18:40 Polyethylene Glycol (Miralax) 17 gm DAILY PRN ORAL if MOM ineffective 11/16/16 09:00 12/16/16 08:59 Ranitidine HCl (Zantac) 150 mg DAILY ORAL 11/16/16 09:00 12/16/16 08:59 11/20/16 11:05 Sodium Chloride (Sodium Chloride 1000ml bag) 1,000 ml @ 100 mls/hr Q10H IV 11/15/16 23:30 12/15/16 23:29 11/20/16 23:54 Sodium Phosphate (Fleet's Sodium Phosl Enema) 133 ml DAILY PRN RECTAL If MOM & Dulcolax ineffective 11/16/16 09:00 12/16/16 08:59 Sotalol HCl (Betapace) 80 mg DAILY ORAL 11/16/16 09:00 12/16/16 08:59 11/20/16 11:05 DOLORES LARA Nov 21, 2016 08:29
[2016-11-21] MEDS: Multivitamin 5ml Liquid GT SCH (09:40)
[2016-11-21] MEDS: Sotalol 80mg tab ORAL SCH (09:40)
[2016-11-21] MEDS: Aspirin Baby 81mg GT SCH (09:40)
[2016-11-21] MEDS: Phenytoin Susp 100mg/4ml GT SCH ×2 (09:41→22:08)
[2016-11-21] MEDS: Cefepime HCl 1 GM in D5W 55 ML IVPB SCH ×2 (09:42→22:07)
[2016-11-21 10:03] LABS: ABG ALLEN TEST POSITIVE; ABG BASE EXCESS 1.9; ABG PCO2 36.8 mmHg (35.0-45.0)
--- NOTE | 2016-11-21 11:07 | Infectious Diseases Prog Note ---
Assessment/Plan Assessment/Plan A: 1. pneumonia with pseudomonas 2. GT site cellulitis with staph aureus 3. 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 Persistent fever P 1. continue Cefepime X 1 day 2. DNR status, poor prognosis Subjective ROS Limited/Unobtainable: Yes Constitutional: Reports: fever, other - T hvr=604.7 Allergies: Coded Allergies: No Known Allergies (Unverified , 11/12/16) Objective Vital Signs Last 24 Hour Vital Signs Date Time Temp Pulse Resp B/P Pulse Ox O2 Delivery O2 Flow Rate FiO2 11/21/16 09:40 71 106/54 11/21/16 09:21 71 20 100 11/21/16 08:09 81 11/21/16 08:09 100 11/21/16 07:51 73 20 100 11/21/16 07:16 97.7 11/21/16 05:17 79 18 100 11/21/16 04:00 101.7 74 17 106/54 96 Mechanical Ventilator 100 11/21/16 04:00 86 11/21/16 04:00 100 11/21/16 03:52 87 20 100 11/21/16 01:35 88 33 100 11/21/16 00:00 99.9 88 15 126/63 96 Mechanical Ventilator 100 11/21/16 00:00 87 11/20/16 23:45 96 39 100 11/20/16 21:30 85 36 100 11/20/16 20:00 100.4 92 16 118/93 98 Mechanical Ventilator 100 11/20/16 20:00 92 11/20/16 19:12 87 36 100 11/20/16 16:58 68 16 100 11/20/16 16:00 67 11/20/16 16:00 96.4 67 20 107/63 98 Mechanical Ventilator 100 11/20/16 14:52 67 16 100 11/20/16 12:41 75 16 100 11/20/16 12:03 97.5 11/20/16 12:00 74 11/20/16 12:00 97.5 76 21 116/51 100 Mechanical Ventilator 100 Height (Feet): 5 Height (Inches): 10.00 Weight (Pounds): 155 HEENT: status post trach, other - head & neck swelling Respiratory/Chest: decreased breath sounds, other - on ventilator Cardiovascular: normal rate Abdomen: soft, non tender, other - GT feeding Neurologic/Psychiatric: unresponsiveness Laboratory Tests Test 11/21/16 08:29 Arterial Blood pH 7.462 (7.350-7.450) Arterial Blood Partial Pressure CO2 36.8 mmHg (35.0-45.0) Arterial Blood Partial Pressure O2 63.5 mmHg (75.0-100.0) L Arterial Blood HCO3 25.7 mmol/L (22.0-26.0) Arterial Blood Oxygen Saturation 92.2 % (92.0-98.0) Arterial Blood Base Excess 1.9 Shay Test Positive Current Medications Medications (Trade) Dose Ordered Sig/Hernando Route PRN Reason Start Time Stop Time Status Last Admin Dose Admin Acetaminophen (Tylenol) 650 mg Q4H PRN NG Mild Pain/Temp > 100.5 11/16/16 01:00 12/16/16 00:59 11/21/16 06:46 Acetaminophen (Tylenol) 650 mg Q4H PRN ORAL Fever/Headache/Mild Pain 11/16/16 01:00 12/16/16 00:59 Acetaminophen/ Hydrocodone Bitart ([place] 5/325) 1 tab Q6H PRN GT Moderate Pain (Pain Scale 4-6) 11/16/16 03:00 11/23/16 02:59 11/20/16 11:04 Acetaminophen/ Hydrocodone Bitart ([place] 5/325) 2 tab Q6H PRN ORAL Severe Pain (Pain Scale 7-10) 11/16/16 03:00 11/23/16 02:59 11/19/16 00:11 Artificial Tears (Akwa-Tears) 1 drop Q4H PRN BOTH EYES DRY EYES 11/16/16 01:45 12/16/16 01:44 Aspirin (ASA) 81 mg DAILY GT 11/16/16 09:00 12/16/16 08:59 11/21/16 09:40 Atorvastatin Calcium (Lipitor) 5 mg BEDTIME ORAL 11/16/16 21:00 12/16/16 20:59 11/20/16 21:23 Bisacodyl (Dulcolax) 10 mg DAILY PRN RECTAL If MOM is ineffective 11/16/16 09:00 12/16/16 08:59 Cefepime HCl/ Dextrose (Maxipime/D5W) 55 ml @ 110 mls/hr EVERY 12 HOURS IVPB 11/18/16 12:00 11/25/16 11:59 11/21/16 09:42 Clonidine HCl (Catapres) 0.1 mg Q6H PRN GT SBP >160 11/16/16 00:00 12/16/16 00:00 Levothyroxine Sodium (Synthroid) 50 mcg DAILY GT 11/16/16 09:00 12/16/16 08:59 11/21/16 09:40 Lorazepam 1 mg 1 mg Q4H PRN IV For Anxiety 11/18/16 06:45 11/25/16 06:44 11/21/16 00:03 Magnesium Hydroxide (Mom) 30 ml DAILY PRN GT IF NO BM FOR 3 DAYS 11/16/16 09:00 12/16/16 08:59 Multivitamins (Multivitamin Hexavitamin) 5 ml DAILY GT 11/16/16 09:00 12/16/16 08:59 11/21/16 09:40 Ondansetron HCl (Zofran ODT) 4 mg Q6H PRN GT Nausea & Vomiting 11/16/16 03:00 12/16/16 02:59 Phenytoin (Dilantin) 400 mg BID GT 11/16/16 09:00 12/16/16 08:59 11/21/16 09:41 Polyethylene Glycol (Miralax) 17 gm DAILY PRN ORAL if MOM ineffective 11/16/16 09:00 12/16/16 08:59 Ranitidine HCl (Zantac) 150 mg DAILY ORAL 11/16/16 09:00 12/16/16 08:59 11/21/16 09:40 Sodium Chloride (Sodium Chloride 1000ml bag) 1,000 ml @ 100 mls/hr Q10H IV 11/15/16 23:30 12/15/16 23:29 11/21/16 09:43 Sodium Phosphate (Fleet's Sodium Phosl Enema) 133 ml DAILY PRN RECTAL If MOM & Dulcolax ineffective 11/16/16 09:00 12/16/16 08:59 Sotalol HCl (Betapace) 80 mg DAILY ORAL 11/16/16 09:00 12/16/16 08:59 11/21/16 09:40 MIGUEL A BENTON Nov 21, 2016 11:07
[2016-11-21 12:00] VITALS: BP 111/59
--- NOTE | 2016-11-21 14:04 | General Progress Note ---
Assessment/Plan Problem List: (1) Hospital acquired PNA ICD Codes: J18.9 - Pneumonia, unspecified organism SNOMED: 681693206 (2) Head and neck cancer ICD Codes: C76.0 - Malignant neoplasm of head, face and neck SNOMED: 623318881 (3) Respiratory insufficiency ICD Codes: R06.89 - Other abnormalities of breathing SNOMED: 336516961 (4) Encephalopathy acute ICD Codes: G93.40 - Encephalopathy, unspecified SNOMED: 1456271 (5) r/o sepsis Status: stable, not improved Assessment/Plan iv abx per ID neuro checks/fall precautions resp care trach care gt feeds follow up cultures monitor cxr sz rx per neuro vent support agree with dnr. poor prognosis Subjective ROS Limited/Unobtainable: No Constitutional: Reports: malaise, weakness HEENT: Reports: no symptoms Cardiovascular: Reports: no symptoms Respiratory: Reports: shortness of breath Gastrointestinal/Abdominal: Reports: difficulty swallowing Genitourinary: Reports: no symptoms Neurologic/Psychiatric: Reports: no symptoms Endocrine: Reports: no symptoms Hematologic/Lymphatic: Reports: anemia Allergies: Coded Allergies: No Known Allergies (Unverified , 11/12/16) All Systems: reviewed and negative except above Subjective on the vent. resting. no real change. no distress. Objective Last 24 Hour Vital Signs Date Time Temp Pulse Resp B/P Pulse Ox O2 Delivery O2 Flow Rate FiO2 11/21/16 12:40 68 33 100 11/21/16 12:00 78 11/21/16 12:00 100 11/21/16 12:00 98.8 15 111/59 78 Mechanical Ventilator 11/21/16 11:04 67 35 100 11/21/16 09:40 71 106/54 11/21/16 09:21 71 20 100 11/21/16 08:09 81 11/21/16 08:09 100 11/21/16 08:00 97.7 72 15 102/62 92 Mechanical Ventilator 100 11/21/16 07:51 73 20 100 11/21/16 07:16 97.7 11/21/16 05:17 79 18 100 11/21/16 04:00 101.7 74 17 106/54 96 Mechanical Ventilator 100 11/21/16 04:00 86 11/21/16 04:00 100 11/21/16 03:52 87 20 100 11/21/16 01:35 88 33 100 11/21/16 00:00 99.9 88 15 126/63 96 Mechanical Ventilator 100 11/21/16 00:00 87 11/20/16 23:45 96 39 100 11/20/16 21:30 85 36 100 11/20/16 20:00 100.4 92 16 118/93 98 Mechanical Ventilator 100 11/20/16 20:00 92 11/20/16 19:12 87 36 100 11/20/16 16:58 68 16 100 11/20/16 16:00 67 11/20/16 16:00 96.4 67 20 107/63 98 Mechanical Ventilator 100 11/20/16 14:52 67 16 100 Intake and Output 11/20/16 11/21/16 19:00 07:00 Intake Total 2360 ml 1755 ml Balance 2360 ml 1755 ml Free Water 100 ml IV Total 1210 ml 1255 ml Tube Feeding 1050 ml 500 ml Laboratory Tests 11/21/16 08:29: Arterial Blood pH 7.462H, Arterial Blood Partial Pressure CO2 36.8, Arterial Blood Partial Pressure O2 63.5L, Arterial Blood HCO3 25.7, Arterial Blood Oxygen Saturation 92.2, Arterial Blood Base Excess 1.9, Shay Test Positive Height (Feet): 5 Height (Inches): 10.00 Weight (Pounds): 155 Objective General Appearance: WD/WN, alert, lethargic. facial swelling Neck: supple, trach site w/o bleeding Cardiovascular: regular rhythm Respiratory/Chest: rhonchi - bilaterally Abdomen: normal bowel sounds, non tender, soft, no organomegaly Edema: no edema noted Arm (L), no edema noted Arm (R), no edema noted Leg (L), no edema noted Leg (R), no edema noted Pedal (L), no edema noted Pedal (R), no edema noted Generalized Neurologic: alert, disoriented REGGIE DE JESUS Nov 21, 2016 14:04
[2016-11-21 16:00] VITALS: BP 116/46
--- NOTE | 2016-11-21 16:55 | Diagnostic Imaging Report ---
Indication: SOB Technique: One view of the chest Comparison: none Findings: Tracheostomy is again demonstrated. Left chest AICD again demonstrated. There is increased consolidation in the right upper lobe. Consolidation in the left retrocardiac, perihilar region and upper lobe remain stable. Pleural are clear except for perhaps slight left costophrenic angle blunting Impression: Worsening right upper lobe infiltrate, over 2 days Other stable findings as described
[2016-11-21 20:00] VITALS: BP 144/74
[2016-11-22] VITALS: BP 135/72
[2016-11-22 04:00] VITALS: BP 127/66
[2016-11-22 08:00] VITALS: BP 137/76
[2016-11-22] MEDS: Phenytoin Susp 100mg/4ml GT SCH ×2 (08:45→21:47)
[2016-11-22] MEDS: Aspirin Baby 81mg GT SCH (08:45)
[2016-11-22] MEDS: Sotalol 80mg tab ORAL SCH (08:45)
[2016-11-22] MEDS: Multivitamin 5ml Liquid GT SCH (08:45)
--- NOTE | 2016-11-22 08:46 | General Progress Note ---
Assessment/Plan Problem List: (1) Hospital acquired PNA ICD Codes: J18.9 - Pneumonia, unspecified organism SNOMED: 344128733 (2) Head and neck cancer ICD Codes: C76.0 - Malignant neoplasm of head, face and neck SNOMED: 669856294 (3) Respiratory insufficiency ICD Codes: R06.89 - Other abnormalities of breathing SNOMED: 863298257 (4) Encephalopathy acute ICD Codes: G93.40 - Encephalopathy, unspecified SNOMED: 3811023 (5) r/o sepsis Status: stable, progressing Assessment/Plan iv abx per ID resp care trach care gt feeds follow up cultures monitor cxr sz rx per neuro vent support agree with dnr. poor prognosis Subjective ROS Limited/Unobtainable: No Constitutional: Reports: malaise, weakness HEENT: Reports: no symptoms Cardiovascular: Reports: no symptoms Respiratory: Reports: shortness of breath, sputum Gastrointestinal/Abdominal: Reports: difficulty swallowing Genitourinary: Reports: no symptoms Neurologic/Psychiatric: Reports: weakness Endocrine: Reports: no symptoms Hematologic/Lymphatic: Reports: anemia Allergies: Coded Allergies: No Known Allergies (Unverified , 11/12/16) All Systems: reviewed and negative except above Subjective on the vent. resting. no real change. +sob. d/w RN. intermittent episodes of desaturation. Objective Last 24 Hour Vital Signs Date Time Temp Pulse Resp B/P Pulse Ox O2 Delivery O2 Flow Rate FiO2 11/22/16 07:57 72 36 100 11/22/16 07:54 75 11/22/16 07:54 100 11/22/16 05:30 71 43 100 11/22/16 04:00 100 11/22/16 04:00 71 11/22/16 04:00 98.1 72 45 127/66 92 Mechanical Ventilator 100 11/22/16 03:30 72 45 100 11/22/16 00:52 75 47 100 11/22/16 00:19 78 11/22/16 00:00 100 11/22/16 00:00 97.9 76 16 135/72 100 Mechanical Ventilator 100 11/21/16 23:30 75 53 100 11/21/16 21:30 77 45 100 11/21/16 20:00 97.9 79 14 144/74 78 Nasal Cannula 11/21/16 20:00 100 11/21/16 20:00 78 11/21/16 19:30 77 47 100 11/21/16 16:59 80 48 100 11/21/16 16:00 100 11/21/16 16:00 74 11/21/16 16:00 97.9 77 14 116/46 93 Room Air 11/21/16 15:09 71 45 100 11/21/16 12:40 68 33 100 11/21/16 12:00 78 11/21/16 12:00 100 11/21/16 12:00 98.8 15 111/59 78 Mechanical Ventilator 11/21/16 11:04 67 35 100 11/21/16 09:40 71 106/54 11/21/16 09:21 71 20 100 Intake and Output 11/21/16 11/22/16 19:00 07:00 Intake Total 1610 ml 1715 ml Balance 1610 ml 1715 ml Free Water 650 ml 270 ml IV Total 725 ml Tube Feeding 960 ml 720 ml # Voids 3 5 Height (Feet): 5 Height (Inches): 10.00 Weight (Pounds): 155 Objective General Appearance: WD/WN, alert, lethargic. facial swelling Neck: supple, trach site w/o bleeding Cardiovascular: regular rhythm Respiratory/Chest: rhonchi - bilaterally Abdomen: normal bowel sounds, non tender, soft, no organomegaly Edema: no edema noted Arm (L), no edema noted Arm (R), no edema noted Leg (L), no edema noted Leg (R), no edema noted Pedal (L), no edema noted Pedal (R), no edema noted Generalized Neurologic: alert, disoriented REGGIE DE JESUS Nov 22, 2016 08:46
[2016-11-22] MEDS: Cefepime HCl 1 GM in D5W 55 ML IVPB SCH ×2 (08:47→21:48)
--- NOTE | 2016-11-22 11:26 | Infectious Diseases Prog Note ---
Assessment/Plan Assessment/Plan antibiotics : cefepime A 1. pseudomonas pneumonia 2. GT site cellulitis with MRSA s/p rx 3. 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 fever improving P 1. continue cefepime 2. will follow up cultures Subjective ROS Limited/Unobtainable: Yes Allergies: Coded Allergies: No Known Allergies (Unverified , 11/12/16) Objective Vital Signs Last 24 Hour Vital Signs Date Time Temp Pulse Resp B/P Pulse Ox O2 Delivery O2 Flow Rate FiO2 11/22/16 11:21 67 46 100 11/22/16 09:08 71 45 100 11/22/16 08:45 72 127/66 11/22/16 08:00 97.2 72 36 137/76 81 Mechanical Ventilator 100 11/22/16 07:57 72 36 100 11/22/16 07:54 75 11/22/16 07:54 100 11/22/16 05:30 71 43 100 11/22/16 04:00 100 11/22/16 04:00 71 11/22/16 04:00 98.1 72 45 127/66 92 Mechanical Ventilator 100 11/22/16 03:30 72 45 100 11/22/16 00:52 75 47 100 11/22/16 00:19 78 11/22/16 00:00 100 11/22/16 00:00 97.9 76 16 135/72 100 Mechanical Ventilator 100 11/21/16 23:30 75 53 100 11/21/16 21:30 77 45 100 11/21/16 20:00 97.9 79 14 144/74 78 Nasal Cannula 11/21/16 20:00 100 11/21/16 20:00 78 11/21/16 19:30 77 47 100 11/21/16 16:59 80 48 100 11/21/16 16:00 100 11/21/16 16:00 74 11/21/16 16:00 97.9 77 14 116/46 93 Room Air 11/21/16 15:09 71 45 100 11/21/16 12:40 68 33 100 11/21/16 12:00 78 11/21/16 12:00 100 11/21/16 12:00 98.8 15 111/59 78 Mechanical Ventilator Height (Feet): 5 Height (Inches): 10.00 Weight (Pounds): 155 HEENT: status post trach Respiratory/Chest: lungs clear Cardiovascular: normal rate, regular rhythm, no gallop/murmur Abdomen: soft, non tender, other - GT Extremities: no edema RANDI TREVIZO Nov 22, 2016 11:26
--- NOTE | 2016-11-22 11:56 | Pulmonology Progress Note ---
Assessment/Plan Assessment/Plan IMPRESSION: 1. Respiratory failure, tracheostomy. 2. History of squamous cell cancer. 3. Significant facial and skull deformity. 4. History of seizure. 5. History of hyperlipidemia. 6. History of dysrhythmias. 7. MRSA 8. s/p fall with scalp injury 9. chronic encephalopathy 10. profound hypoxemia 11. tachypnea PLAN exam without change on vent; and monitor neuro evaluation noted DNR confirmed chest xr with bilateral infiltrates and worse monitor neuro exam; reduced LOC respiratory care oxygen monitor for change monitor for aspiration family to consider withdrawl of care updated family; DNR confirmed likely recovery is unlikely impression, plan, and exam edited and reviewed in detail care discussed with RN Subjective ROS Limited/Unobtainable: Yes Allergies: Coded Allergies: No Known Allergies (Unverified , 11/12/16) Subjective on the ventilator ALOC adequate volumes at present poor oxygen saturations Objective Last 24 Hour Vital Signs Date Time Temp Pulse Resp B/P Pulse Ox O2 Delivery O2 Flow Rate FiO2 11/22/16 11:28 79 11/22/16 11:28 100 11/22/16 11:21 67 46 100 11/22/16 09:08 71 45 100 11/22/16 08:45 72 127/66 11/22/16 08:00 97.2 72 36 137/76 81 Mechanical Ventilator 100 11/22/16 07:57 72 36 100 11/22/16 07:54 75 11/22/16 07:54 100 11/22/16 05:30 71 43 100 11/22/16 04:00 100 11/22/16 04:00 71 11/22/16 04:00 98.1 72 45 127/66 92 Mechanical Ventilator 100 11/22/16 03:30 72 45 100 11/22/16 00:52 75 47 100 11/22/16 00:19 78 11/22/16 00:00 100 11/22/16 00:00 97.9 76 16 135/72 100 Mechanical Ventilator 100 11/21/16 23:30 75 53 100 11/21/16 21:30 77 45 100 11/21/16 20:00 97.9 79 14 144/74 78 Nasal Cannula 11/21/16 20:00 100 11/21/16 20:00 78 11/21/16 19:30 77 47 100 11/21/16 16:59 80 48 100 11/21/16 16:00 100 11/21/16 16:00 74 11/21/16 16:00 97.9 77 14 116/46 93 Room Air 11/21/16 15:09 71 45 100 11/21/16 12:40 68 33 100 11/21/16 12:00 78 11/21/16 12:00 100 11/21/16 12:00 98.8 15 111/59 78 Mechanical Ventilator Intake and Output 11/21/16 11/22/16 19:00 07:00 Intake Total 1610 ml 1715 ml Balance 1610 ml 1715 ml Free Water 650 ml 270 ml IV Total 725 ml Tube Feeding 960 ml 720 ml # Voids 3 5 Objective GENERAL:: The patient is a chronically ill appearing male. reduced LOC with some agitation HEENT: Fairly negative. The patient overall has significant facial/scalp deformities with chronic erythematous changes. NECK: Supple. Carotids 2+. Tracheostomy in midline. LUNGS: Coarse breath sounds. Moderate air entry. without change from prior CARDIAC: S1 and S2. RRR without murmurs, rubs, or gallops. ABDOMEN: Soft, nontender, and nondistended. no HSM; gt EXTREMITIES: No cyanosis or clubbing. No edema. NEUROLOGIC: Grossly nonfocal. more withdrawn now on ventilator and volumes adequate Current Medications Medications (Trade) Dose Ordered Sig/Hernando Route PRN Reason Start Time Stop Time Status Last Admin Dose Admin Acetaminophen (Tylenol) 650 mg Q4H PRN NG Mild Pain/Temp > 100.5 11/16/16 01:00 12/16/16 00:59 11/21/16 06:46 Acetaminophen (Tylenol) 650 mg Q4H PRN ORAL Fever/Headache/Mild Pain 11/16/16 01:00 12/16/16 00:59 Acetaminophen/ Hydrocodone Bitart ([place] 5/325) 1 tab Q6H PRN GT Moderate Pain (Pain Scale 4-6) 11/16/16 03:00 11/23/16 02:59 11/20/16 11:04 Acetaminophen/ Hydrocodone Bitart ([place] 5/325) 2 tab Q6H PRN ORAL Severe Pain (Pain Scale 7-10) 11/16/16 03:00 11/23/16 02:59 11/19/16 00:11 Artificial Tears (Akwa-Tears) 1 drop Q4H PRN BOTH EYES DRY EYES 11/16/16 01:45 12/16/16 01:44 Aspirin (ASA) 81 mg DAILY GT 11/16/16 09:00 12/16/16 08:59 11/22/16 08:45 Atorvastatin Calcium (Lipitor) 5 mg BEDTIME ORAL 11/16/16 21:00 12/16/16 20:59 11/21/16 22:03 Bisacodyl (Dulcolax) 10 mg DAILY PRN RECTAL If MOM is ineffective 11/16/16 09:00 12/16/16 08:59 Cefepime HCl/ Dextrose (Maxipime/D5W) 55 ml @ 110 mls/hr EVERY 12 HOURS IVPB 11/18/16 12:00 11/25/16 11:59 11/22/16 08:47 Clonidine HCl (Catapres) 0.1 mg Q6H PRN GT SBP >160 11/16/16 00:00 12/16/16 00:00 Levothyroxine Sodium (Synthroid) 50 mcg DAILY GT 11/16/16 09:00 12/16/16 08:59 11/22/16 08:46 Lorazepam 1 mg 1 mg Q4H PRN IV For Anxiety 11/18/16 06:45 11/25/16 06:44 11/21/16 00:03 Magnesium Hydroxide (Mom) 30 ml DAILY PRN GT IF NO BM FOR 3 DAYS 11/16/16 09:00 12/16/16 08:59 Multivitamins (Multivitamin Hexavitamin) 5 ml DAILY GT 11/16/16 09:00 12/16/16 08:59 11/22/16 08:45 Ondansetron HCl (Zofran ODT) 4 mg Q6H PRN GT Nausea & Vomiting 11/16/16 03:00 12/16/16 02:59 Phenytoin (Dilantin) 400 mg Q12HR GT 11/21/16 21:00 12/16/16 08:59 11/22/16 08:45 Polyethylene Glycol (Miralax) 17 gm DAILY PRN ORAL if MOM ineffective 11/16/16 09:00 12/16/16 08:59 Ranitidine HCl (Zantac) 150 mg DAILY ORAL 11/16/16 09:00 12/16/16 08:59 11/22/16 08:45 Sodium Chloride (Sodium Chloride 1000ml bag) 1,000 ml @ 100 mls/hr Q10H IV 11/15/16 23:30 12/15/16 23:29 11/22/16 04:47 Sodium Phosphate (Fleet's Sodium Phosl Enema) 133 ml DAILY PRN RECTAL If MOM & Dulcolax ineffective 11/16/16 09:00 12/16/16 08:59 Sotalol HCl (Betapace) 80 mg DAILY ORAL 11/16/16 09:00 12/16/16 08:59 11/22/16 08:45 DOLORES LARA Nov 22, 2016 11:56
[2016-11-22 12:00] VITALS: BP 131/63
[2016-11-22] MEDS ORDERED: Acetaminophen 650mg/20.3ml NG PRN (15:58)
[2016-11-22] MEDS ORDERED: Norco 5mg/325mg tab GT PRN (15:59)
[2016-11-22] MEDS ORDERED: Miralax 17gm pkt GT PRN (15:59)
[2016-11-22 16:00] VITALS: BP 123/61
[2016-11-22 20:00] VITALS: BP 138/72
[2016-11-23] VITALS: BP 136/66
[2016-11-23 04:00] VITALS: BP 103/56
[2016-11-23] MEDS: LORazepam Inj 2mg/ml 1ml IV PRN ×2 (05:18→20:24)
[2016-11-23 08:00] VITALS: BP 119/50
--- NOTE | 2016-11-23 08:44 | Pulmonology Progress Note ---
Assessment/Plan Assessment/Plan IMPRESSION: 1. Respiratory failure, tracheostomy. 2. History of squamous cell cancer. 3. Significant facial and skull deformity. 4. History of seizure. 5. History of hyperlipidemia. 6. History of dysrhythmias. 7. MRSA 8. s/p fall with scalp injury 9. chronic encephalopathy 10. profound hypoxemia 11. tachypnea 12. pneumonia bilaterally; much worse than admit PLAN exam without change on vent; and monitor saturations poor neuro evaluation noted DNR confirmed chest xr with bilateral infiltrates and worse overall monitor neuro exam; reduced LOC respiratory care oxygen monitor for change monitor for aspiration family to consider withdrawal of care as likelyhood of improvement poor at present impression, plan, and exam edited and reviewed in detail care discussed with RN Subjective ROS Limited/Unobtainable: Yes Allergies: Coded Allergies: No Known Allergies (Unverified , 11/12/16) Subjective on the ventilator ALOC adequate volumes at present poor oxygen saturations sister aware DNR confirmed Objective Last 24 Hour Vital Signs Date Time Temp Pulse Resp B/P Pulse Ox O2 Delivery O2 Flow Rate FiO2 11/23/16 08:30 85 11/23/16 08:00 100 11/23/16 06:45 68 42 100 11/23/16 05:10 71 42 100 11/23/16 04:00 100 11/23/16 04:00 98.2 75 44 103/56 88 Mechanical Ventilator 100 11/23/16 04:00 73 11/23/16 03:16 74 40 100 11/23/16 01:25 72 41 100 11/23/16 00:00 100 11/23/16 00:00 98.4 72 43 136/66 91 Mechanical Ventilator 100 11/22/16 23:46 73 11/22/16 23:30 72 43 100 11/22/16 21:09 71 45 100 11/22/16 20:00 100 11/22/16 20:00 98.2 78 45 138/72 91 Mechanical Ventilator 100 11/22/16 20:00 75 11/22/16 19:30 72 50 100 11/22/16 17:25 75 40 100 11/22/16 16:00 98.2 74 40 123/61 93 Mechanical Ventilator 100 11/22/16 16:00 75 11/22/16 16:00 100 11/22/16 15:25 72 37 100 11/22/16 13:13 70 34 100 3/21/17 12:00 97.7 68 47 131/63 86 Mechanical Ventilator 100 11/22/16 11:28 79 11/22/16 11:28 100 11/22/16 11:21 67 46 100 11/22/16 09:08 71 45 100 11/22/16 08:45 72 127/66 Intake and Output 11/22/16 11/23/16 19:00 07:00 Intake Total 680 ml 1500 ml Output Total 550 ml Balance 130 ml 1500 ml Free Water 100 ml 270 ml IV Total 100 ml 750 ml Tube Feeding 480 ml 480 ml Output Urine Total 550 ml # Voids 1 4 # Bowel Movements 1 Objective GENERAL:: The patient is a chronically ill appearing male. reduced LOC with some agitation HEENT: Fairly negative. The patient overall has significant facial/scalp deformities with chronic erythematous changes. NECK: Supple. Carotids 2+. Tracheostomy in midline. LUNGS: Coarse breath sounds bilaterally. Moderate air entry. without change from prior CARDIAC: S1 and S2. RRR without murmurs, rubs, or gallops. ABDOMEN: Soft, nontender, and nondistended. no HSM; gt EXTREMITIES: No cyanosis or clubbing. No edema. NEUROLOGIC: Grossly nonfocal. more withdrawn now on ventilator and volumes adequate Current Medications Medications (Trade) Dose Ordered Sig/[place] Route PRN Reason Start Time Stop Time Status Last Admin Dose Admin Acetaminophen (Tylenol) 650 mg Q4H PRN NG Mild Pain/Temp > 100.5 11/16/16 01:00 12/16/16 00:59 11/21/16 06:46 Acetaminophen (Tylenol) 650 mg Q4H PRN NG Fever/Headache/Mild Pain 11/22/16 15:58 12/16/16 00:59 Artificial Tears (Akwa-Tears) 1 drop Q4H PRN BOTH EYES DRY EYES 11/16/16 01:45 12/16/16 01:44 Aspirin (ASA) 81 mg DAILY GT 11/16/16 09:00 12/16/16 08:59 11/22/16 08:45 Atorvastatin Calcium (Lipitor) 5 mg BEDTIME GT 11/22/16 15:58 12/16/16 20:59 11/22/16 21:48 Bisacodyl (Dulcolax) 10 mg DAILY PRN RECTAL If MOM is ineffective 11/16/16 09:00 12/16/16 08:59 Cefepime HCl/ Dextrose (Maxipime/D5W) 55 ml @ 110 mls/hr EVERY 12 HOURS IVPB 11/18/16 12:00 11/24/16 23:59 11/22/16 21:48 Clonidine HCl (Catapres) 0.1 mg Q6H PRN GT SBP >160 11/16/16 00:00 12/16/16 00:00 Levothyroxine Sodium (Synthroid) 50 mcg DAILY GT 11/16/16 09:00 12/16/16 08:59 11/22/16 08:46 Lorazepam 1 mg 1 mg Q4H PRN IV For Anxiety 11/18/16 06:45 11/25/16 06:44 11/23/16 05:18 Magnesium Hydroxide (Mom) 30 ml DAILY PRN GT IF NO BM FOR 3 DAYS 11/16/16 09:00 12/16/16 08:59 Multivitamins (Multivitamin Hexavitamin) 5 ml DAILY GT 11/16/16 09:00 12/16/16 08:59 11/22/16 08:45 Ondansetron HCl (Zofran ODT) 4 mg Q6H PRN GT Nausea & Vomiting 11/16/16 03:00 12/16/16 02:59 Phenytoin (Dilantin) 400 mg Q12HR GT 11/21/16 21:00 12/16/16 08:59 11/22/16 21:47 Polyethylene Glycol (Miralax) 17 gm DAILY PRN GT if MOM ineffective 11/22/16 15:59 12/16/16 08:59 Ranitidine HCl (Zantac) 150 mg DAILY GT 11/22/16 15:59 12/16/16 08:59 Sodium Chloride (Sodium Chloride 1000ml bag) 1,000 ml @ 100 mls/hr Q10H IV 11/15/16 23:30 12/15/16 23:29 11/23/16 01:35 Sodium Phosphate (Fleet's Sodium Phosl Enema) 133 ml DAILY PRN RECTAL If MOM & Dulcolax ineffective 11/16/16 09:00 12/16/16 08:59 Sotalol HCl (Betapace) 80 mg DAILY ORAL 3/15/17 09:00 12/16/16 08:59 11/22/16 08:45 DOLORES LARA Nov 23, 2016 08:44
[2016-11-23] MEDS: Aspirin Baby 81mg GT SCH (09:24)
[2016-11-23] MEDS: Multivitamin 5ml Liquid GT SCH (09:24)
[2016-11-23] MEDS: Cefepime HCl 1 GM in D5W 55 ML IVPB SCH ×2 (09:25→20:23)
[2016-11-23] MEDS: Sotalol 80mg tab ORAL SCH (09:25)
[2016-11-23] MEDS: Phenytoin Susp 100mg/4ml GT SCH ×2 (09:26→20:24)
[2016-11-23 12:00] VITALS: BP 122/61
--- NOTE | 2016-11-23 12:02 | Diagnostic Imaging Report ---
Indication: Dyspnea Comparison: 11/21/16 A single view chest radiograph was obtained. Findings: Persistent airspace opacities are present bilaterally involving the upper lobes, left lung base. Heart is normal in size. There is new left basilar volume loss consistent with atelectasis with possible superimposed pneumonia. There is a probable left pleural effusion also. Endotracheal tube is present in good position. Pacemaker is noted. Bones are osteopenic. Impression: Extensive patchy infiltrates bilaterally. The left basilar atelectasis and probable pleural effusion.
--- NOTE | 2016-11-23 13:19 | General Progress Note ---
Assessment/Plan Problem List: (1) Hospital acquired PNA ICD Codes: J18.9 - Pneumonia, unspecified organism SNOMED: 857682919 (2) Head and neck cancer ICD Codes: C76.0 - Malignant neoplasm of head, face and neck SNOMED: 021708498 (3) Respiratory insufficiency ICD Codes: R06.89 - Other abnormalities of breathing SNOMED: 605890390 (4) Encephalopathy acute ICD Codes: G93.40 - Encephalopathy, unspecified SNOMED: 1562048 (5) r/o sepsis Status: deteriorating Assessment/Plan iv abx per ID resp care trach care gt feeds follow up cultures monitor cxr consider hospice/comfort measures Subjective ROS Limited/Unobtainable: No Constitutional: Reports: malaise, weakness HEENT: Reports: mouth swelling Cardiovascular: Reports: edema Respiratory: Reports: shortness of breath Gastrointestinal/Abdominal: Reports: difficulty swallowing Genitourinary: Reports: no symptoms Neurologic/Psychiatric: Reports: no symptoms Endocrine: Reports: no symptoms Hematologic/Lymphatic: Reports: anemia Allergies: Coded Allergies: No Known Allergies (Unverified , 11/12/16) All Systems: reviewed and negative except above Subjective on the vent. resting. no real change. +sob. d/w RN. intermittent episodes of desaturation. on 100%, DNR Objective Last 24 Hour Vital Signs Date Time Temp Pulse Resp B/P Pulse Ox O2 Delivery O2 Flow Rate FiO2 11/23/16 12:53 73 40 100 11/23/16 11:42 81 11/23/16 11:41 100 11/23/16 10:25 70 41 100 11/23/16 09:25 72 119/50 11/23/16 09:20 72 38 100 11/23/16 08:30 85 11/23/16 08:00 97.7 72 31 119/50 86 Mechanical Ventilator 100 11/23/16 08:00 100 11/23/16 06:45 68 42 100 11/23/16 05:10 71 42 100 11/23/16 04:00 100 11/23/16 04:00 98.2 75 44 103/56 88 Mechanical Ventilator 100 11/23/16 04:00 73 11/23/16 03:16 74 40 100 11/23/16 01:25 72 41 100 11/23/16 00:00 100 11/23/16 00:00 98.4 72 43 136/66 91 Mechanical Ventilator 100 11/22/16 23:46 73 11/22/16 23:30 72 43 100 11/22/16 21:09 71 45 100 11/22/16 20:00 100 11/22/16 20:00 98.2 78 45 138/72 91 Mechanical Ventilator 100 11/22/16 20:00 75 11/22/16 19:30 72 50 100 11/22/16 17:25 75 40 100 11/22/16 16:00 98.2 74 40 123/61 93 Mechanical Ventilator 100 11/22/16 16:00 75 11/22/16 16:00 100 11/22/16 15:25 72 37 100 Intake and Output 11/22/16 11/23/16 19:00 07:00 Intake Total 680 ml 1500 ml Output Total 550 ml Balance 130 ml 1500 ml Free Water 100 ml 270 ml IV Total 100 ml 750 ml Tube Feeding 480 ml 480 ml Output Urine Total 550 ml # Voids 1 4 # Bowel Movements 1 Height (Feet): 5 Height (Inches): 10.00 Weight (Pounds): 155 Objective General Appearance: WD/WN, alert, lethargic. facial swelling Neck: supple, trach site w/o bleeding Cardiovascular: regular rhythm Respiratory/Chest: rhonchi - bilaterally Abdomen: normal bowel sounds, non tender, soft, no organomegaly Edema: no edema noted Arm (L), no edema noted Arm (R), no edema noted Leg (L), no edema noted Leg (R), no edema noted Pedal (L), no edema noted Pedal (R), no edema noted Generalized Neurologic: alert, disoriented REGGIE DE JESUS Nov 23, 2016 13:19
--- NOTE | 2016-11-23 15:09 | Infectious Diseases Prog Note ---
Assessment/Plan Assessment/Plan A: 1. pneumonia with pseudomonas 2. GT site cellulitis with staph aureus 3. 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 fever resolved P 1. continue Cefepime 2. DNR status, poor prognosis Subjective ROS Limited/Unobtainable: Yes Allergies: Coded Allergies: No Known Allergies (Unverified , 11/12/16) Objective Vital Signs Last 24 Hour Vital Signs Date Time Temp Pulse Resp B/P Pulse Ox O2 Delivery O2 Flow Rate FiO2 11/23/16 12:53 73 40 100 11/23/16 12:00 97.5 72 45 122/61 77 11/23/16 11:42 81 11/23/16 11:41 100 11/23/16 10:25 70 41 100 11/23/16 09:25 72 119/50 11/23/16 09:20 72 38 100 11/23/16 08:30 85 11/23/16 08:00 97.7 72 31 119/50 86 Mechanical Ventilator 100 11/23/16 08:00 100 11/23/16 06:45 68 42 100 11/23/16 05:10 71 42 100 11/23/16 04:00 100 11/23/16 04:00 98.2 75 44 103/56 88 Mechanical Ventilator 100 11/23/16 04:00 73 11/23/16 03:16 74 40 100 11/23/16 01:25 72 41 100 11/23/16 00:00 100 11/23/16 00:00 98.4 72 43 136/66 91 Mechanical Ventilator 100 11/22/16 23:46 73 11/22/16 23:30 72 43 100 11/22/16 21:09 71 45 100 11/22/16 20:00 100 11/22/16 20:00 98.2 78 45 138/72 91 Mechanical Ventilator 100 11/22/16 20:00 75 11/22/16 19:30 72 50 100 11/22/16 17:25 75 40 100 11/22/16 16:00 98.2 74 40 123/61 93 Mechanical Ventilator 100 11/22/16 16:00 75 11/22/16 16:00 100 11/22/16 15:25 72 37 100 Height (Feet): 5 Height (Inches): 10.00 Weight (Pounds): 155 HEENT: status post trach, other - facial mass, swelling Respiratory/Chest: other Cardiovascular: normal rate Abdomen: soft, non tender, other - GT feeding Extremities: other - edema of arms Neurologic/Psychiatric: unresponsiveness Current Medications Medications (Trade) Dose Ordered Sig/Hernando Route PRN Reason Start Time Stop Time Status Last Admin Dose Admin Acetaminophen (Tylenol) 650 mg Q4H PRN NG Mild Pain/Temp > 100.5 11/16/16 01:00 12/16/16 00:59 11/21/16 06:46 Acetaminophen (Tylenol) 650 mg Q4H PRN NG Fever/Headache/Mild Pain 11/22/16 15:58 12/16/16 00:59 Artificial Tears (Akwa-Tears) 1 drop Q4H PRN BOTH EYES DRY EYES 11/16/16 01:45 12/16/16 01:44 Aspirin (ASA) 81 mg DAILY GT 11/16/16 09:00 12/16/16 08:59 11/23/16 09:24 Atorvastatin Calcium (Lipitor) 5 mg BEDTIME GT 11/22/16 15:58 12/16/16 20:59 11/22/16 21:48 Bisacodyl (Dulcolax) 10 mg DAILY PRN RECTAL If MOM is ineffective 11/16/16 09:00 12/16/16 08:59 Cefepime HCl/ Dextrose (Maxipime/D5W) 55 ml @ 110 mls/hr EVERY 12 HOURS IVPB 11/18/16 12:00 11/24/16 23:59 11/23/16 09:25 Clonidine HCl (Catapres) 0.1 mg Q6H PRN GT SBP >160 11/16/16 00:00 12/16/16 00:00 Levothyroxine Sodium (Synthroid) 50 mcg DAILY GT 11/16/16 09:00 12/16/16 08:59 11/23/16 09:25 Lorazepam 1 mg 1 mg Q4H PRN IV For Anxiety 11/18/16 06:45 11/25/16 06:44 11/23/16 05:18 Magnesium Hydroxide (Mom) 30 ml DAILY PRN GT IF NO BM FOR 3 DAYS 11/16/16 09:00 12/16/16 08:59 Multivitamins (Multivitamin Hexavitamin) 5 ml DAILY GT 11/16/16 09:00 12/16/16 08:59 11/23/16 09:24 Ondansetron HCl (Zofran ODT) 4 mg Q6H PRN GT Nausea & Vomiting 11/16/16 03:00 12/16/16 02:59 Phenytoin (Dilantin) 400 mg Q12HR GT 11/21/16 21:00 12/16/16 08:59 11/23/16 09:26 Polyethylene Glycol (Miralax) 17 gm DAILY PRN GT if MOM ineffective 11/22/16 15:59 12/16/16 08:59 Ranitidine HCl (Zantac) 150 mg DAILY GT 11/22/16 15:59 12/16/16 08:59 11/23/16 09:24 Sodium Chloride (Sodium Chloride 1000ml bag) 1,000 ml @ 100 mls/hr Q10H IV 11/15/16 23:30 12/15/16 23:29 11/23/16 11:47 Sodium Phosphate (Fleet's Sodium Phosl Enema) 133 ml DAILY PRN RECTAL If MOM & Dulcolax ineffective 11/16/16 09:00 12/16/16 08:59 Sotalol HCl (Betapace) 80 mg DAILY ORAL 11/16/16 09:00 12/16/16 08:59 11/23/16 09:25 MIGUEL A BENTON Nov 23, 2016 15:09
[2016-11-23 16:00] VITALS: BP 128/69
[2016-11-23 20:00] VITALS: BP 101/59
[2016-11-24] VITALS: BP 110/60
[2016-11-24 04:00] VITALS: BP 115/76
--- NOTE | 2016-11-24 05:55 | Pulmonology Progress Note ---
Assessment/Plan Assessment/Plan IMPRESSION: 1. Respiratory failure, tracheostomy. 2. History of squamous cell cancer. 3. Significant facial and skull deformity. 4. History of seizure. 5. History of hyperlipidemia. 6. History of dysrhythmias. 7. MRSA 8. s/p fall with scalp injury 9. chronic encephalopathy 10. profound hypoxemia 11. tachypnea 12. pneumonia bilaterally; much worse than admit PLAN exam not improved on vent; and monitor saturations poor on 100% fio2 has extensive pneumonia DNR confirmed chest xr with bilateral infiltrates and worse overall; not candidate for further intervention monitor neuro exam; reduced LOC respiratory care oxygen monitor for change monitor for aspiration family to consider withdrawal of care will update sister and discuss impression, plan, and exam edited and reviewed in detail care discussed with RN Subjective ROS Limited/Unobtainable: Yes Allergies: Coded Allergies: No Known Allergies (Unverified , 11/12/16) Subjective on the ventilator ALOC adequate volumes at present poor oxygen saturations remain on 100% sister aware DNR confirmed Objective Last 24 Hour Vital Signs Date Time Temp Pulse Resp B/P Pulse Ox O2 Delivery O2 Flow Rate FiO2 11/24/16 05:28 69 42 100 11/24/16 04:00 100 11/24/16 03:33 68 38 100 11/24/16 01:14 70 41 100 11/24/16 00:00 98.2 68 43 110/60 86 Mechanical Ventilator 100 11/24/16 00:00 100 11/24/16 00:00 80 11/23/16 22:47 68 42 100 11/23/16 20:42 70 42 100 11/23/16 20:00 76 11/23/16 20:00 98.1 70 38 101/59 86 Mechanical Ventilator 100 11/23/16 20:00 100 11/23/16 19:24 69 41 100 11/23/16 16:40 70 40 100 11/23/16 16:15 69 11/23/16 16:00 98.1 50 44 128/69 86 Mechanical Ventilator 100 11/23/16 16:00 100 11/23/16 15:30 66 54 100 11/23/16 12:53 73 40 100 11/23/16 12:00 97.5 72 45 122/61 77 11/23/16 11:42 81 11/23/16 11:41 100 11/23/16 10:25 70 41 100 11/23/16 09:25 72 119/50 11/23/16 09:20 72 38 100 11/23/16 08:30 85 11/23/16 08:00 97.7 72 31 119/50 86 Mechanical Ventilator 100 11/23/16 08:00 100 11/23/16 06:45 68 42 100 Intake and Output 11/23/16 11/24/16 18:59 06:59 Intake Total 2215 ml 1240 ml Output Total 300 ml Balance 2215 ml 940 ml Free Water 100 ml IV Total 1155 ml 1000 ml Tube Feeding 960 ml 240 ml Output Urine Total 300 ml # Voids 1 Objective GENERAL:: The patient is a chronically ill appearing male. reduced LOC with some agitation HEENT: Fairly negative. The patient overall has significant facial/scalp deformities with chronic erythematous changes. NECK: Supple. Carotids 2+. Tracheostomy in midline. LUNGS: Coarse breath sounds bilaterally. Moderate air entry. without change from prior CARDIAC: S1 and S2. RRR without murmurs, rubs, or gallops. ABDOMEN: Soft, nontender, and nondistended. no HSM; gt EXTREMITIES: No cyanosis or clubbing. No edema. NEUROLOGIC: Grossly nonfocal. more withdrawn now on ventilator and volumes adequate Current Medications Medications (Trade) Dose Ordered Sig/Hernando Route PRN Reason Start Time Stop Time Status Last Admin Dose Admin Acetaminophen (Tylenol) 650 mg Q4H PRN NG Mild Pain/Temp > 100.5 11/16/16 01:00 12/16/16 00:59 11/21/16 06:46 Acetaminophen (Tylenol) 650 mg Q4H PRN NG Fever/Headache/Mild Pain 11/22/16 15:58 12/16/16 00:59 Artificial Tears (Akwa-Tears) 1 drop Q4H PRN BOTH EYES DRY EYES 11/16/16 01:45 12/16/16 01:44 Aspirin (ASA) 81 mg DAILY GT 11/16/16 09:00 12/16/16 08:59 11/23/16 09:24 Atorvastatin Calcium (Lipitor) 5 mg BEDTIME GT 11/22/16 15:58 12/16/16 20:59 11/23/16 20:24 Bisacodyl (Dulcolax) 10 mg DAILY PRN RECTAL If MOM is ineffective 11/16/16 09:00 12/16/16 08:59 Cefepime HCl/ Dextrose (Maxipime/D5W) 55 ml @ 110 mls/hr EVERY 12 HOURS IVPB 11/18/16 12:00 11/28/16 11:59 11/23/16 20:23 Clonidine HCl (Catapres) 0.1 mg Q6H PRN GT SBP >160 11/16/16 00:00 12/16/16 00:00 Levothyroxine Sodium (Synthroid) 50 mcg DAILY GT 11/16/16 09:00 12/16/16 08:59 11/23/16 09:25 Lorazepam 1 mg 1 mg Q4H PRN IV For Anxiety 11/18/16 06:45 11/25/16 06:44 11/23/16 20:24 Magnesium Hydroxide (Mom) 30 ml DAILY PRN GT IF NO BM FOR 3 DAYS 11/16/16 09:00 12/16/16 08:59 Multivitamins (Multivitamin Hexavitamin) 5 ml DAILY GT 11/16/16 09:00 12/16/16 08:59 11/23/16 09:24 Ondansetron HCl (Zofran ODT) 4 mg Q6H PRN GT Nausea & Vomiting 11/16/16 03:00 12/16/16 02:59 Phenytoin (Dilantin) 400 mg Q12HR GT 11/21/16 21:00 12/16/16 08:59 11/23/16 20:24 Polyethylene Glycol (Miralax) 17 gm DAILY PRN GT if MOM ineffective 11/22/16 15:59 12/16/16 08:59 Ranitidine HCl (Zantac) 150 mg DAILY GT 11/22/16 15:59 12/16/16 08:59 11/23/16 09:24 Sodium Chloride (Sodium Chloride 1000ml bag) 1,000 ml @ 100 mls/hr Q10H IV 11/15/16 23:30 12/15/16 23:29 11/23/16 20:35 Sodium Phosphate (Fleet's Sodium Phosl Enema) 133 ml DAILY PRN RECTAL If MOM & Dulcolax ineffective 11/16/16 09:00 12/16/16 08:59 Sotalol HCl (Betapace) 80 mg DAILY ORAL 11/16/16 09:00 12/16/16 08:59 11/23/16 09:25 DOLORES LARA Nov 24, 2016 05:55
[2016-11-24 08:00] VITALS: BP 120/69
[2016-11-24] MEDS: Cefepime HCl 1 GM in D5W 55 ML IVPB SCH ×2 (08:42→20:14)
[2016-11-24] MEDS: Phenytoin Susp 100mg/4ml GT SCH ×2 (08:42→20:16)
[2016-11-24] MEDS: Aspirin Baby 81mg GT SCH (08:43)
[2016-11-24] MEDS: Multivitamin 5ml Liquid GT SCH (08:43)
[2016-11-24] MEDS: Sotalol 80mg tab ORAL SCH (08:44)
--- NOTE | 2016-11-24 12:11 | Diagnostic Imaging Report ---
Indication: Dyspnea Comparison: 11/23/2016 A single view chest radiograph was obtained. Findings: Patchy or space disease with fairly extensive in degree noted bilaterally unchanged. Background of interstitial edema present. Heart size is stable. Tracheostomy and pacemaker are again noted. Impression: No significant change
[2016-11-24 12:31] VITALS: BP 118/67
--- NOTE | 2016-11-24 14:47 | Infectious Diseases Prog Note ---
Assessment/Plan Assessment/Plan A: 1. pneumonia with pseudomonas 2. GT site cellulitis with staph aureus 3. 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 fever resolved P 1. continue Cefepime 2. DNR status, poor prognosis Subjective ROS Limited/Unobtainable: Yes Allergies: Coded Allergies: No Known Allergies (Unverified , 11/12/16) Objective Vital Signs Last 24 Hour Vital Signs Date Time Temp Pulse Resp B/P Pulse Ox O2 Delivery O2 Flow Rate FiO2 11/24/16 13:11 67 31 100 11/24/16 12:31 65 11/24/16 12:31 100 11/24/16 12:31 97.5 65 28 118/67 86 Mechanical Ventilator 100 11/24/16 10:44 66 29 100 11/24/16 08:51 69 26 100 11/24/16 08:44 70 112/68 11/24/16 08:08 75 11/24/16 08:08 100 11/24/16 08:00 97.7 68 30 120/69 85 Mechanical Ventilator 100 11/24/16 07:01 92 31 100 11/24/16 05:28 69 42 100 11/24/16 04:00 100 11/24/16 04:00 97.7 68 42 115/76 88 Mechanical Ventilator 100 11/24/16 04:00 66 11/24/16 03:33 68 38 100 11/24/16 01:14 70 41 100 11/24/16 00:00 98.2 68 43 110/60 86 Mechanical Ventilator 100 11/24/16 00:00 100 11/24/16 00:00 80 11/23/16 22:47 68 42 100 11/23/16 20:42 70 42 100 11/23/16 20:00 76 11/23/16 20:00 98.1 70 38 101/59 86 Mechanical Ventilator 100 11/23/16 20:00 100 11/23/16 19:24 69 41 100 11/23/16 16:40 70 40 100 11/23/16 16:15 69 11/23/16 16:00 98.1 50 44 128/69 86 Mechanical Ventilator 100 11/23/16 16:00 100 11/23/16 15:30 66 54 100 Height (Feet): 5 Height (Inches): 10.00 Weight (Pounds): 155 HEENT: status post trach, other - facial edema & mass Respiratory/Chest: lungs clear, other - on ventilator Cardiovascular: normal rate Abdomen: soft, non tender, other - GT feeding Extremities: other - generalized edema Neurologic/Psychiatric: unresponsiveness Current Medications Medications (Trade) Dose Ordered Sig/Hernando Route PRN Reason Start Time Stop Time Status Last Admin Dose Admin Acetaminophen (Tylenol) 650 mg Q4H PRN NG Mild Pain/Temp > 100.5 11/16/16 01:00 12/16/16 00:59 11/21/16 06:46 Acetaminophen (Tylenol) 650 mg Q4H PRN NG Fever/Headache/Mild Pain 11/22/16 15:58 12/16/16 00:59 Artificial Tears (Akwa-Tears) 1 drop Q4H PRN BOTH EYES DRY EYES 11/16/16 01:45 12/16/16 01:44 Aspirin (ASA) 81 mg DAILY GT 11/16/16 09:00 12/16/16 08:59 11/24/16 08:43 Atorvastatin Calcium (Lipitor) 5 mg BEDTIME GT 11/22/16 15:58 12/16/16 20:59 11/23/16 20:24 Bisacodyl (Dulcolax) 10 mg DAILY PRN RECTAL If MOM is ineffective 11/16/16 09:00 12/16/16 08:59 Cefepime HCl/ Dextrose (Maxipime/D5W) 55 ml @ 110 mls/hr EVERY 12 HOURS IVPB 11/18/16 12:00 11/28/16 11:59 11/24/16 08:42 Clonidine HCl (Catapres) 0.1 mg Q6H PRN GT SBP >160 11/16/16 00:00 12/16/16 00:00 Levothyroxine Sodium (Synthroid) 50 mcg DAILY GT 11/16/16 09:00 12/16/16 08:59 11/24/16 08:43 Lorazepam 1 mg 1 mg Q4H PRN IV For Anxiety 11/18/16 06:45 11/25/16 06:44 11/23/16 20:24 Magnesium Hydroxide (Mom) 30 ml DAILY PRN GT IF NO BM FOR 3 DAYS 11/16/16 09:00 12/16/16 08:59 Multivitamins (Multivitamin Hexavitamin) 5 ml DAILY GT 11/16/16 09:00 12/16/16 08:59 11/24/16 08:43 Ondansetron HCl (Zofran ODT) 4 mg Q6H PRN GT Nausea & Vomiting 11/16/16 03:00 12/16/16 02:59 Phenytoin (Dilantin) 400 mg Q12HR GT 11/21/16 21:00 12/16/16 08:59 11/24/16 08:42 Polyethylene Glycol (Miralax) 17 gm DAILY PRN GT if MOM ineffective 11/22/16 15:59 12/16/16 08:59 Ranitidine HCl (Zantac) 150 mg DAILY GT 11/22/16 15:59 12/16/16 08:59 11/24/16 08:43 Sodium Chloride (Sodium Chloride 1000ml bag) 1,000 ml @ 100 mls/hr Q10H IV 11/15/16 23:30 12/15/16 23:29 11/24/16 06:59 Sodium Phosphate (Fleet's Sodium Phosl Enema) 133 ml DAILY PRN RECTAL If MOM & Dulcolax ineffective 11/16/16 09:00 12/16/16 08:59 Sotalol HCl (Betapace) 80 mg DAILY ORAL 11/16/16 09:00 12/16/16 08:59 11/24/16 08:44 MIGUEL A BENTON Nov 24, 2016 14:47
[2016-11-24 16:00] VITALS: BP 134/93
--- NOTE | 2016-11-24 18:46 | General Progress Note ---
Assessment/Plan Problem List: (1) Hospital acquired PNA ICD Codes: J18.9 - Pneumonia, unspecified organism SNOMED: 168997695 (2) Head and neck cancer ICD Codes: C76.0 - Malignant neoplasm of head, face and neck SNOMED: 491853831 (3) Respiratory insufficiency ICD Codes: R06.89 - Other abnormalities of breathing SNOMED: 399879035 (4) Encephalopathy acute ICD Codes: G93.40 - Encephalopathy, unspecified SNOMED: 5038234 (5) r/o sepsis Status: not improved Assessment/Plan iv abx per ID resp care trach care gt feeds follow up cultures monitor cxr on max rx d/w sister/poa. aware of poor prognosis Subjective ROS Limited/Unobtainable: Yes Constitutional: Reports: malaise, weakness HEENT: Reports: no symptoms Cardiovascular: Reports: no symptoms Respiratory: Reports: shortness of breath Gastrointestinal/Abdominal: Reports: difficulty swallowing Genitourinary: Reports: no symptoms Neurologic/Psychiatric: Reports: pre-existing deficit Endocrine: Reports: no symptoms Hematologic/Lymphatic: Reports: anemia Allergies: Coded Allergies: No Known Allergies (Unverified , 11/12/16) All Systems: reviewed and negative except above Subjective on the vent. resting. no real change. +sob. d/w RN. intermittent episodes of desaturation. on 100%, DNR. multiple abx. cxr without improvement Objective Last 24 Hour Vital Signs Date Time Temp Pulse Resp B/P Pulse Ox O2 Delivery O2 Flow Rate FiO2 11/24/16 16:57 67 33 100 11/24/16 16:00 97.8 67 30 134/93 83 Mechanical Ventilator 100 11/24/16 15:42 71 11/24/16 15:42 100 11/24/16 15:04 67 31 100 11/24/16 13:11 67 31 100 11/24/16 12:31 65 11/24/16 12:31 100 11/24/16 12:31 97.5 65 28 118/67 86 Mechanical Ventilator 100 11/24/16 10:44 66 29 100 11/24/16 08:51 69 26 100 11/24/16 08:44 70 112/68 11/24/16 08:08 75 11/24/16 08:08 100 11/24/16 08:00 97.7 68 30 120/69 85 Mechanical Ventilator 100 11/24/16 07:01 92 31 100 11/24/16 05:28 69 42 100 11/24/16 04:00 100 11/24/16 04:00 97.7 68 42 115/76 88 Mechanical Ventilator 100 11/24/16 04:00 66 11/24/16 03:33 68 38 100 11/24/16 01:14 70 41 100 11/24/16 00:00 98.2 68 43 110/60 86 Mechanical Ventilator 100 11/24/16 00:00 100 11/24/16 00:00 80 11/23/16 22:47 68 42 100 11/23/16 20:42 70 42 100 11/23/16 20:00 76 11/23/16 20:00 98.1 70 38 101/59 86 Mechanical Ventilator 100 11/23/16 20:00 100 11/23/16 19:24 69 41 100 Intake and Output 11/23/16 11/24/16 19:00 07:00 Intake Total 2215 ml 1580 ml Output Total 500 ml Balance 2215 ml 1080 ml Free Water 100 ml IV Total 1155 ml 1100 ml Tube Feeding 960 ml 480 ml Output Urine Total 500 ml # Voids 1 Height (Feet): 5 Height (Inches): 10.00 Weight (Pounds): 155 Objective General Appearance: WD/WN, alert, lethargic. facial swelling Neck: supple, trach site w/o bleeding Cardiovascular: regular rhythm Respiratory/Chest: rhonchi - bilaterally Abdomen: normal bowel sounds, non tender, soft, no organomegaly Edema: no edema noted Arm (L), no edema noted Arm (R), no edema noted Leg (L), no edema noted Leg (R), no edema noted Pedal (L), no edema noted Pedal (R), no edema noted Generalized Neurologic: alert, disoriented REGGIE DE JESUS Nov 24, 2016 18:46
[2016-11-24 20:00] VITALS: BP 149/72
[2016-11-24 21:09] LABS: MEAN CORPUSCULAR HEMOGLOBIN 28.6 PG (27.0-31.0); MEAN CORPUSCULAR HGB CONC 30.3 G/DL (32.0-36.0); MEAN CORPUSCULAR VOLUME 94 FL (80-99); PLATELET COUNT 365 K/UL (150-450); RED BLOOD COUNT 3.37 M/UL (4.70-6.10); RED CELL DISTRIBUTION WIDTH 14.1 % (11.6-14.8); WHITE BLOOD COUNT 15.9 K/UL (4.8-10.8)
[2016-11-24 21:29] LABS: ALBUMIN/GLOBULIN RATIO 0.3 (1.0-2.7); ANION GAP 17 (5-15); CALCIUM 7.9 mg/dL (8.6-10.2); CARBON DIOXIDE 22 mEQ/L (20-30); CHLORIDE 105 mEQ/L (98-107); CREATININE 1.7 mg/dL (0.7-1.2); HEMOLYSIS 0; POTASSIUM 5.4 mEQ/L (3.4-4.9); SODIUM 144 mEQ/L (135-145); TOTAL PROTEIN 6.1 g/dL (6.6-8.7)
[2016-11-24 21:36] LABS: ANISOCYTOSIS 1+; BAND NEUTROPHILS % (MANUAL) 2 % (0-8); BASOPHILS % (MANUAL) 1 % (0-2); EOSINOPHILS % (MANUAL) 4 % (0-3); HYPOCHROMASIA 1+; LYMPHOCYTES % (MANUAL) 9 % (20-45); NEUTROPHILS % (MANUAL) 76 % (45-75); PLATELET ESTIMATE ADEQUATE; PLATELET MORPHOLOGY NORMAL; TOTAL CELLS COUNTED 100
[2016-11-24 21:45] LABS: ASPARTATE AMINO TRANSFERASE 1455 U/L (5-40)
[2016-11-24 21:46] LABS: ALANINE AMINOTRANSFERASE 786 U/L (3-41)
[2016-11-25] VITALS: BP 116/61
[2016-11-25 04:00] VITALS: BP 128/62
[2016-11-25 08:00] VITALS: BP 108/54
[2016-11-25] MEDS: Aspirin Baby 81mg GT SCH (08:17)
[2016-11-25] MEDS: Sotalol 80mg tab ORAL SCH (08:18)
[2016-11-25] MEDS: Multivitamin 5ml Liquid GT SCH (08:19)
[2016-11-25] MEDS: Phenytoin Susp 100mg/4ml GT SCH (08:20)
[2016-11-25] MEDS: Cefepime HCl 1 GM in D5W 55 ML IVPB SCH (08:27)
--- NOTE | 2016-11-25 08:34 | Pulmonology Progress Note ---
Assessment/Plan Assessment/Plan IMPRESSION: 1. Respiratory failure, tracheostomy. 2. History of squamous cell cancer. 3. Significant facial and skull deformity. 4. History of seizure. 5. History of hyperlipidemia. 6. History of dysrhythmias. 7. MRSA 8. s/p fall with scalp injury 9. chronic encephalopathy 10. profound hypoxemia 11. tachypnea 12. pneumonia bilaterally; much worse than admit PLAN exam not improved sats 90% on vent; and monitor saturations poor on 100% fio2 follow up chest xr and abg follow up labs has extensive pneumonia DNR confirmed respiratory care oxygen monitor for change monitor for aspiration family to consider withdrawal of care; still hoping to see improvement continue to update sister and discuss impression, plan, and exam edited and reviewed in detail care discussed with RN Subjective ROS Limited/Unobtainable: Yes Allergies: Coded Allergies: No Known Allergies (Unverified , 11/12/16) Subjective on the ventilator ALOC adequate volumes at present poor oxygen saturations remain on 100% sister aware; discussing withdrawal of care DNR confirmed Objective Last 24 Hour Vital Signs Date Time Temp Pulse Resp B/P Pulse Ox O2 Delivery O2 Flow Rate FiO2 11/25/16 08:18 71 104/74 11/25/16 05:21 67 26 100 11/25/16 04:00 70 11/25/16 04:00 97.9 70 27 128/62 92 Mechanical Ventilator 100 11/25/16 04:00 100 11/25/16 03:09 69 26 100 11/25/16 01:21 69 30 100 11/25/16 00:00 100 11/25/16 00:00 98.2 68 31 116/61 77 Mechanical Ventilator 100 11/25/16 00:00 69 11/24/16 23:21 68 33 100 11/24/16 21:12 74 28 100 11/24/16 20:00 97.7 70 30 149/72 91 Mechanical Ventilator 100 11/24/16 19:30 100 11/24/16 19:30 69 11/24/16 19:26 68 34 100 11/24/16 16:57 67 33 100 11/24/16 16:00 97.8 67 30 134/93 83 Mechanical Ventilator 100 11/24/16 15:42 71 11/24/16 15:42 100 11/24/16 15:04 67 31 100 11/24/16 13:11 67 31 100 11/24/16 12:31 65 11/24/16 12:31 100 11/24/16 12:31 97.5 65 28 118/67 86 Mechanical Ventilator 100 11/24/16 10:44 66 29 100 11/24/16 08:51 69 26 100 11/24/16 08:44 70 112/68 Intake and Output 11/24/16 11/25/16 19:00 07:00 Intake Total 2260 ml 1000 ml Output Total 300 ml 200 ml Balance 1960 ml 800 ml Free Water 100 ml 50 ml IV Total 1200 ml 700 ml Tube Feeding 960 ml 250 ml Output Urine Total 300 ml 200 ml Objective GENERAL:: The patient is a chronically ill appearing male. reduced LOC calm HEENT: Fairly negative. The patient overall has significant facial/scalp deformities with chronic erythematous changes. NECK: Supple. Carotids 2+. Tracheostomy in midline. LUNGS: Coarse breath sounds bilaterally. Moderate air entry. without change from prior CARDIAC: S1 and S2. RRR without murmurs, rubs, or gallops. ABDOMEN: Soft, nontender, and nondistended. no HSM; gt EXTREMITIES: No cyanosis or clubbing. minimal edema. NEUROLOGIC: Grossly nonfocal. more withdrawn now on ventilator and volumes adequate Laboratory Tests 11/24/16 21:00: White Blood Count 15.9H, Red Blood Count 3.37L, Hemoglobin 9.6L, Hematocrit 31.8L, Mean Corpuscular Volume 94, Mean Corpuscular Hemoglobin 28.6, Mean Corpuscular Hemoglobin Concent 30.3L, Red Cell Distribution Width 14.1, Platelet Count 365, Mean Platelet Volume 7.0, Neutrophils (%) (Auto) , Lymphocytes (%) (Auto) , Monocytes (%) (Auto) , Eosinophils (%) (Auto) , Basophils (%) (Auto) , Differential Total Cells Counted 100, Neutrophils % ( Manual) 76H, Lymphocytes % (Manual) 9L, Monocytes % (Manual) 8, Eosinophils % ( Manual) 4H, Basophils % (Manual) 1, Band Neutrophils 2, Platelet Estimate Adequate, Platelet Morphology Normal, Hypochromasia 1+, Anisocytosis 1+, Sodium Level 144, Potassium Level 5.4H, Chloride Level 105, Carbon Dioxide Level 22, Anion Gap 17H, Blood Urea Nitrogen 58H, Creatinine 1.7H, Estimat Glomerular Filtration Rate , Glucose Level 185H, Calcium Level 7.9L, Total Bilirubin 0.4, Aspartate Amino Transf (AST/SGOT) 1455H, Alanine Aminotransferase (ALT/SGPT) 786H, Alkaline Phosphatase 191H, Total Protein 6.1L, Albumin 1.7L, Globulin 4.4 , Albumin/Globulin Ratio 0.3L, Phenytoin (Dilantin) Level 23.0H Current Medications Medications (Trade) Dose Ordered Sig/Hernando Route PRN Reason Start Time Stop Time Status Last Admin Dose Admin Acetaminophen (Tylenol) 650 mg Q4H PRN NG Mild Pain/Temp > 100.5 11/16/16 01:00 12/16/16 00:59 11/21/16 06:46 Acetaminophen (Tylenol) 650 mg Q4H PRN NG Fever/Headache/Mild Pain 11/22/16 15:58 12/16/16 00:59 Artificial Tears (Akwa-Tears) 1 drop Q4H PRN BOTH EYES DRY EYES 11/16/16 01:45 12/16/16 01:44 Aspirin (ASA) 81 mg DAILY GT 11/16/16 09:00 12/16/16 08:59 11/25/16 08:17 Atorvastatin Calcium (Lipitor) 5 mg BEDTIME GT 11/22/16 15:58 12/16/16 20:59 11/24/16 20:15 Bisacodyl (Dulcolax) 10 mg DAILY PRN RECTAL If MOM is ineffective 11/16/16 09:00 12/16/16 08:59 Cefepime HCl/ Dextrose (Maxipime/D5W) 55 ml @ 110 mls/hr EVERY 12 HOURS IVPB 11/18/16 12:00 11/28/16 11:59 11/25/16 08:27 Clonidine HCl (Catapres) 0.1 mg Q6H PRN GT SBP >160 11/16/16 00:00 12/16/16 00:00 Levothyroxine Sodium (Synthroid) 50 mcg DAILY GT 11/16/16 09:00 12/16/16 08:59 11/25/16 08:17 Magnesium Hydroxide (Mom) 30 ml DAILY PRN GT IF NO BM FOR 3 DAYS 11/16/16 09:00 12/16/16 08:59 Multivitamins (Multivitamin Hexavitamin) 5 ml DAILY GT 11/16/16 09:00 12/16/16 08:59 11/25/16 08:19 Ondansetron HCl (Zofran ODT) 4 mg Q6H PRN GT Nausea & Vomiting 11/16/16 03:00 12/16/16 02:59 Phenytoin (Dilantin) 400 mg Q12HR GT 11/21/16 21:00 12/16/16 08:59 11/25/16 08:20 Polyethylene Glycol (Miralax) 17 gm DAILY PRN GT if MOM ineffective 11/22/16 15:59 12/16/16 08:59 Ranitidine HCl (Zantac) 150 mg DAILY GT 11/22/16 15:59 12/16/16 08:59 11/25/16 08:19 Sodium Chloride (Sodium Chloride 1000ml bag) 1,000 ml @ 100 mls/hr Q10H IV 11/15/16 23:30 12/15/16 23:29 11/25/16 03:31 Sodium Phosphate (Fleet's Sodium Phosl Enema) 133 ml DAILY PRN RECTAL If MOM & Dulcolax ineffective 11/16/16 09:00 12/16/16 08:59 Sotalol HCl 80 mg 80 mg DAILY ORAL 11/16/16 09:00 12/16/16 08:59 11/25/16 08:18 DOLORES LARA Nov 25, 2016 08:34
[2016-11-25] MEDS ORDERED: Heparin 5000 units/ml inj SUBQ SCH (09:00)
--- NOTE | 2016-11-25 09:04 | General Progress Note ---
Assessment/Plan Problem List: (1) Hospital acquired PNA ICD Codes: J18.9 - Pneumonia, unspecified organism SNOMED: 826818933 (2) Head and neck cancer ICD Codes: C76.0 - Malignant neoplasm of head, face and neck SNOMED: 253535446 (3) Respiratory insufficiency ICD Codes: R06.89 - Other abnormalities of breathing SNOMED: 450905574 (4) Encephalopathy acute ICD Codes: G93.40 - Encephalopathy, unspecified SNOMED: 9539790 (5) r/o sepsis Status: deteriorating Assessment/Plan iv abx per ID resp care trach care gt feeds follow up cultures monitor cxr on max rx hold dilantin and repeat abd nicolás gi eval regarding elevated lfts d/w sister/poa x 15minutes. aware of poor prognosis aware of poor prognosis Subjective ROS Limited/Unobtainable: Yes Constitutional: Reports: malaise, weakness HEENT: Reports: no symptoms Cardiovascular: Reports: no symptoms Respiratory: Reports: shortness of breath, sputum, wheezing Gastrointestinal/Abdominal: Reports: difficulty swallowing Genitourinary: Reports: no symptoms Neurologic/Psychiatric: Reports: pre-existing deficit Endocrine: Reports: no symptoms Hematologic/Lymphatic: Reports: anemia Allergies: Coded Allergies: No Known Allergies (Unverified , 11/12/16) All Systems: reviewed and negative except above Subjective on the vent. resting. no real change. +sob. d/w RN. intermittent episodes of desaturation. on 100%, DNR. multiple abx. cxr without improvement. elevated lfts and dilantin noted Objective Last 24 Hour Vital Signs Date Time Temp Pulse Resp B/P Pulse Ox O2 Delivery O2 Flow Rate FiO2 11/25/16 08:18 71 104/74 11/25/16 07:56 65 31 100 11/25/16 05:21 67 26 100 11/25/16 04:00 70 11/25/16 04:00 97.9 70 27 128/62 92 Mechanical Ventilator 100 11/25/16 04:00 100 11/25/16 03:09 69 26 100 11/25/16 01:21 69 30 100 11/25/16 00:00 100 11/25/16 00:00 98.2 68 31 116/61 77 Mechanical Ventilator 100 11/25/16 00:00 69 11/24/16 23:21 68 33 100 11/24/16 21:12 74 28 100 11/24/16 20:00 97.7 70 30 149/72 91 Mechanical Ventilator 100 11/24/16 19:30 100 11/24/16 19:30 69 11/24/16 19:26 68 34 100 11/24/16 16:57 67 33 100 11/24/16 16:00 97.8 67 30 134/93 83 Mechanical Ventilator 100 11/24/16 15:42 71 11/24/16 15:42 100 11/24/16 15:04 67 31 100 11/24/16 13:11 67 31 100 11/24/16 12:31 65 11/24/16 12:31 100 11/24/16 12:31 97.5 65 28 118/67 86 Mechanical Ventilator 100 11/24/16 10:44 66 29 100 Intake and Output 11/24/16 11/25/16 19:00 07:00 Intake Total 2260 ml 1000 ml Output Total 300 ml 200 ml Balance 1960 ml 800 ml Free Water 100 ml 50 ml IV Total 1200 ml 700 ml Tube Feeding 960 ml 250 ml Output Urine Total 300 ml 200 ml Laboratory Tests 11/24/16 21:00: White Blood Count 15.9H, Red Blood Count 3.37L, Hemoglobin 9.6L, Hematocrit 31.8L, Mean Corpuscular Volume 94, Mean Corpuscular Hemoglobin 28.6, Mean Corpuscular Hemoglobin Concent 30.3L, Red Cell Distribution Width 14.1, Platelet Count 365, Mean Platelet Volume 7.0, Neutrophils (%) (Auto) , Lymphocytes (%) (Auto) , Monocytes (%) (Auto) , Eosinophils (%) (Auto) , Basophils (%) (Auto) , Differential Total Cells Counted 100, Neutrophils % ( Manual) 76H, Lymphocytes % (Manual) 9L, Monocytes % (Manual) 8, Eosinophils % ( Manual) 4H, Basophils % (Manual) 1, Band Neutrophils 2, Platelet Estimate Adequate, Platelet Morphology Normal, Hypochromasia 1+, Anisocytosis 1+, Sodium Level 144, Potassium Level 5.4H, Chloride Level 105, Carbon Dioxide Level 22, Anion Gap 17H, Blood Urea Nitrogen 58H, Creatinine 1.7H, Estimat Glomerular Filtration Rate , Glucose Level 185H, Calcium Level 7.9L, Total Bilirubin 0.4, Aspartate Amino Transf (AST/SGOT) 1455H, Alanine Aminotransferase (ALT/SGPT) 786H, Alkaline Phosphatase 191H, Total Protein 6.1L, Albumin 1.7L, Globulin 4.4 , Albumin/Globulin Ratio 0.3L, Phenytoin (Dilantin) Level 23.0H Height (Feet): 5 Height (Inches): 10.00 Weight (Pounds): 155 Objective General Appearance: WD/WN, alert, lethargic. facial swelling Neck: supple, trach site w/o bleeding Cardiovascular: regular rhythm Respiratory/Chest: rhonchi - bilaterally Abdomen: normal bowel sounds, non tender, soft, no organomegaly Edema: no edema noted Arm (L), no edema noted Arm (R), no edema noted Leg (L), no edema noted Leg (R), no edema noted Pedal (L), no edema noted Pedal (R), no edema noted Generalized Neurologic: alert, disoriented REGGIE DE JESUS Nov 25, 2016 09:04
--- NOTE | 2016-11-25 10:54 | Diagnostic Imaging Report ---
Indication: SOB Technique: One view of the chest Comparison: 11/24/2016 Findings: Extensive and diffuse bilateral interstitial and alveolar infiltrates again demonstrated. Small bilateral pleural effusions are unchanged. Left chest biventricular AICD is unchanged Impression: Unchanged, over one day, findings as above.
[2016-11-25] MEDS ORDERED: Tubing IV Secondary IV ONE (11:14)
[2016-11-25] MEDS ORDERED: Sterile Water Irrig 1000ml IRRIG ONE ×2 (11:14)
--- NOTE | 2016-11-25 11:34 | Infectious Diseases Prog Note ---
Assessment/Plan Assessment/Plan antibiotics : cefepime A 1. pseudomonas pneumonia 2. GT site cellulitis with MRSA s/p rx 3. 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 fever improving P 1. continue cefepime 2. will follow up cultures Subjective ROS Limited/Unobtainable: Yes Allergies: Coded Allergies: No Known Allergies (Unverified , 11/12/16) Objective Vital Signs Last 24 Hour Vital Signs Date Time Temp Pulse Resp B/P Pulse Ox O2 Delivery O2 Flow Rate FiO2 11/25/16 08:43 61 28 100 11/25/16 08:18 71 104/74 11/25/16 08:00 60 11/25/16 08:00 97.5 64 30 108/54 87 Mechanical Ventilator 100 11/25/16 08:00 100 11/25/16 07:56 65 31 100 11/25/16 05:21 67 26 100 11/25/16 04:00 70 11/25/16 04:00 97.9 70 27 128/62 92 Mechanical Ventilator 100 11/25/16 04:00 100 11/25/16 03:09 69 26 100 11/25/16 01:21 69 30 100 11/25/16 00:00 100 11/25/16 00:00 98.2 68 31 116/61 77 Mechanical Ventilator 100 11/25/16 00:00 69 11/24/16 23:21 68 33 100 11/24/16 21:12 74 28 100 11/24/16 20:00 97.7 70 30 149/72 91 Mechanical Ventilator 100 11/24/16 19:30 100 11/24/16 19:30 69 11/24/16 19:26 68 34 100 11/24/16 16:57 67 33 100 11/24/16 16:00 97.8 67 30 134/93 83 Mechanical Ventilator 100 11/24/16 15:42 71 11/24/16 15:42 100 11/24/16 15:04 67 31 100 11/24/16 13:11 67 31 100 11/24/16 12:31 65 11/24/16 12:31 100 11/24/16 12:31 97.5 65 28 118/67 86 Mechanical Ventilator 100 Height (Feet): 5 Height (Inches): 10.00 Weight (Pounds): 155 HEENT: status post trach Respiratory/Chest: lungs clear Cardiovascular: normal rate, regular rhythm, no gallop/murmur Abdomen: soft, non tender, other - GT Extremities: no edema Laboratory Tests Test 11/24/16 21:00 White Blood Count 15.9 K/UL (4.8-10.8) H Red Blood Count 3.37 M/UL (4.70-6.10) L Hemoglobin 9.6 G/DL (14.2-18.0) L Hematocrit 31.8 % (42.0-52.0) L Mean Corpuscular Volume 94 FL (80-99) Mean Corpuscular Hemoglobin 28.6 PG (27.0-31.0) Mean Corpuscular Hemoglobin Concent 30.3 G/DL (32.0-36.0) L Red Cell Distribution Width 14.1 % (11.6-14.8) Platelet Count 365 K/UL (150-450) Mean Platelet Volume 7.0 FL (6.5-10.1) Neutrophils (%) (Auto) % (45.0-75.0) Lymphocytes (%) (Auto) % (20.0-45.0) Monocytes (%) (Auto) % (1.0-10.0) Eosinophils (%) (Auto) % (0.0-3.0) Basophils (%) (Auto) % (0.0-2.0) Differential Total Cells Counted 100 Neutrophils % (Manual) 76 % (45-75) H Lymphocytes % (Manual) 9 % (20-45) L Monocytes % (Manual) 8 % (1-10) Eosinophils % (Manual) 4 % (0-3) H Basophils % (Manual) 1 % (0-2) Band Neutrophils 2 % (0-8) Platelet Estimate Adequate Platelet Morphology Normal Hypochromasia 1+ Anisocytosis 1+ Sodium Level 144 mEQ/L (135-145) Potassium Level 5.4 mEQ/L (3.4-4.9) H Chloride Level 105 mEQ/L (98-107) Carbon Dioxide Level 22 mEQ/L (20-30) Anion Gap 17 (5-15) H Blood Urea Nitrogen 58 mg/dL (7-23) H Creatinine 1.7 mg/dL (0.7-1.2) H Estimat Glomerular Filtration Rate mL/min (>60) Glucose Level 185 mg/dL (74-106) H Calcium Level 7.9 mg/dL (8.6-10.2) L Total Bilirubin 0.4 mg/dL (0.0-1.2) Aspartate Amino Transf (AST/SGOT) 1455 U/L (5-40) H Alanine Aminotransferase (ALT/SGPT) 786 U/L (3-41) H Alkaline Phosphatase 191 U/L (40-129) H Total Protein 6.1 g/dL (6.6-8.7) L Albumin 1.7 g/dL (3.5-5.2) L Globulin 4.4 g/dL Albumin/Globulin Ratio 0.3 (1.0-2.7) L Phenytoin (Dilantin) Level 23.0 ug/mL (10-20) H RANDI TREVIZO Nov 25, 2016 11:34
[2016-11-25 12:00] VITALS: BP 140/60
--- NOTE | 2016-11-28 14:37 | Discharge Summary ---
Discharge Summary Hospital Course Date of Admission Nov 12, 2016 at 15:18 Date of Discharge Nov 25, 2016 at 11:15 Admitting Diagnosis HPI Harinder SawantJr is a 76 year old male who was admitted on Nov 12, 2016 at 15:18 for R/O Sepsis Hospital Course dc summary # [id number] Discharge Condition Upon Discharge: critical, grave Discharge Disposition Patient was , pronounced at 11/25 at 11:15 Discharge Diagnoses: Discharge Instructions Discharge Instructions Special Instructions I have been assigned to complete a D/C Summary on this account. I was not involved in the patient management Laila Andrade NP ([place]) Nov 28, 2016 14:37
--- NOTE | 2016-11-29 04:39 | Discharge Summary 2 SIG ---
DATE OF ADMISSION: 11/12/2016 DATE OF EXPIRATION: 11/25/2016. REASON FOR ADMISSION: 76-year-old male with a history of head and neck squamous cell carcinoma and chronic respiratory failure with tracheostomy status, secondary to COPD, was admitted from outside hospital. The patient presented with cough, congestion, and shortness of breath. The patient was more congested and more confused, compared with baseline. Initially presented with leukocytosis. Chest x-ray with evidence of possible pneumonia. The patient with a chronic respiratory failure with tracheostomy collar at 40%. The patient was admitted for further management. ADMITTING DIAGNOSES: 1. Possible sepsis 2. Acute on chronic respiratory failure. 3. Tracheostomy status. 4. Possible pneumonia. 5. Chronic obstructive pulmonary disease. 6. Squamous cell carcinoma, head and neck. 7. Dysphagia, gastrostomy tube. HOSPITAL COURSE: The patient was admitted. Supplemental oxygen and aggressive pulmonary toilet provided. ABG on 11/17/2016 revealed evidence of hypoxemia. The patient was connected to ventilator and followed up with daily ABG. Incident Coordinator and infectious disease doctor closely followed the patient. The patient was started on empiric antibiotics. Urine culture was negative. Sputum culture was positive for Pseudomonas. G-tube site culture was positive for MRSA, status post treatment. Blood culture were negative. Antibiotic regimen optimized by ID doctor based on sensitivity. Last chest x-ray on 11/25/2016 on the day of expiration, revealed extensive and diffuse bilateral interstitial and alveolar infiltrates. Patient was on FiO2 of 100%, unable to down titrate. The patient had DNR status. His condition was slowly deteriorated. Initially, blood pressure was managed with his current regimen. Thyroid replacement was resumed. Antiplatelet therapy resumed. DVT and GI prophylaxis provided. Strict aspiration precautions maintained. Started on the G-tube feeding. Seizure precaution maintained. Dilantin level noted to be high, Dilantin on hold. No seizure activity while in the hospital. Noted elevated LFTs on date of expiration : AST 1455, and ALT 786. On the same day, creatinine up to 1.7. Abdominal ultrasound was ordered . Gastrointestinal consult was requested. Patient's sister, who was the durable power of deputy county attorney, was informed regarding the patient's poor prognosis. Sister was aware of poor prognosis and was thinking about withdrawal treatment. On 11/25/2016, nurses noted that the patient was in asystole and had no palpable pulses. The patient was pronounced by nursing supervisor hydrochloric area at 11:15.. CAUSE OF : Cardiopulmonary arrest. DISCHARGE DIAGNOSES: 1. Sepsis, POA likely due to pneumonia . 2. Pneumonia/Pseudomonas 3. Acute on chronic respiratory failure. 4. Tracheostomy status. 5. Chronic obstructive pulmonary disease. 6. Squamous cell carcinoma, head and neck. 7. Dysphagia, gastrostomy tube. 8. Acute encephalopathy. 9. Gastrostomy tube cellulitis, status post treatment. 10. Seizure disorder. Sarabjit Hunt M.D. I have been assigned to dictate discharge summary on this account and I was not involved in the patient's management. Laila CalderonLong Island Community HospitalSusan N.P. DR: Nevaeh JOB#: [id number] CC: LEANN
--- NOTE | 2016-12-07 15:05 | Diagnostic Imaging Report ---
Indication: Dyspnea Comparison: 11/18/16 A single view chest radiograph was obtained. Findings: There is improved CHF compared to the previous day accounting for the fact that the lungs are much better inflated on the current study. There are considerable residual bilateral airspace consolidative opacities demonstrated within the lungs now. These are airspace opacities primarily with a minor interstitial component. Relative sparing of the right lung base noted. The left lung base is below the field of view. Tracheostomy, pacemaker noted. Bones are osteopenic. The heart is borderline enlarged. Impression: Residual airspace consolidation after improvement in chest heart failure/pulmonary edema. Superimposed pneumonia is not excluded.
== END 2016-11-25 11:15 | disposition expired | DRG 870 ==
LOC: 4W 15:18 → 2W 11-15 23:10
PROC: 5A1955Z Respiratory Ventilation, Greater than 96 Consecutive Hours (ICD-10-PCS; principal; 2016-11-12)
PROC: 0B21XFZ Change Tracheostomy Device in Trachea, External Approach (ICD-10-PCS; 2016-11-19)
DX: A41.9 Sepsis, unspecified organism (principal); J96.21 Acute and chronic respiratory failure with hypoxia; J15.1 Pneumonia due to Pseudomonas; G93.40 Encephalopathy, unspecified; J44.0 Chronic obstructive pulmonary disease with (acute) lower respiratory infection; Z93.0 Tracheostomy status; L03.311 Cellulitis of abdominal wall; K94.22 Gastrostomy infection; B95.61 Methicillin susceptible Staphylococcus aureus infection as the cause of diseases classified elsewhere; Z93.1 Gastrostomy status; Z85.828 Personal history of other malignant neoplasm of skin; R13.10 Dysphagia, unspecified; G40.909 Epilepsy, unspecified, not intractable, without status epilepticus
CPT/HCPCS: 36415; 36600; 70450; 71010; 80053; 80185; 80202; 82803; 84443; 85007; 85025; 87040; 87070; 87081; 87086; 87181; 87205; 93970; 94002; 94003; 94644; 94760; J7620